=== PATIENT | female | born 1960 | race Caucasian/White ===

== ENCOUNTER 2016-05-30 08:23 | Inpatient (IN) | payer MEDICARE, OTHER ==
[~2016-05-30] VITALS: Ht 162.6 cm; Wt 91.5 kg
[~2016-05-30 08:23] MED LIST: ASPI81 PO; ATOR40TA28 PO; BACL10TA PO; BENA20TA3 PO; DULO30CA2 PO; GABA-318 PO; GABA-531 PO; GLIP10TA9 PO; INSNOV SQ; NTP TD; OXYC-341 PO; PHEN250I PO; TICA90TA PO; TOPI25 PO; TRAZ-147 PO
[2016-05-30 10:49] LABS: BASOPHILS % (AUTO) 0.7 % (0.0-2.0); HEMATOCRIT 44.7 % (36-46); HEMOGLOBIN 14.6 g/dL (12.0-16.0); LYMPHOCYTES % (AUTO) 39.5 % (22.0-44.0); MEAN CORPUSCULAR HEMOGLOBIN 28.3 pg (26.0-34.0); MEAN CORPUSCULAR HGB CONC 32.7 G/dL (31.0-37.0); MEAN CORPUSCULAR VOLUME 87 fL (80-100); MONOCYTES # (AUTO) 0.3 K/uL (0.1-1.0); MONOCYTES % (AUTO) 6.5 % (2.0-9.0); NEUTROPHILS # (AUTO) 2.6 K/uL (1.8-7.7); NEUTROPHILS % (AUTO) 52.3 % (40.0-70.0); PLATELET COUNT (AUTO) 263 K/uL (150-450); RED BLOOD CELL COUNT(AUTO) 5.15 MIL/uL (4.00-5.20); RED CELL DISTRIBUTION WIDTH 17.6 % (11.5-14.5)
[2016-05-30 11:08] LABS: RBC MORPHOLOGY COMMENT ABNORMAL RBC MORPH
[2016-05-30 11:09] LABS: ANION GAP 13 mmol/L (8-16); CALCIUM, TOTAL 9.8 mg/dL (8.8-10.5); CARBON DIOXIDE 22 mmol/L (22-29); CHLORIDE 106 mmol/L (98-107); GLOMERULAR FILTR. RATE CALC > 60 mL/min (>60); POTASSIUM 3.7 mmol/L (3.5-5.1); SODIUM SERUM 141 mmol/L (136-145); UREA NITROGEN, BLOOD 25 mg/dL (7-18)
[2016-05-30 11:15] LABS: ALBUMIN 4.2 g/dL (3.4-5.0); ASPARTATE AMINOTRANSFERASE 16 U/L (15-37); BILIRUBIN,TOTAL 0.2 mg/dL (0.1-1.0)
[2016-05-30 11:41] LABS: ALANINE AMINOTRANSFERASE 19 U/L (12-78); THYROID STIMULATING HORMONE 0.82 uIU/mL (0.36-3.74); TOTAL PROTEIN, SERUM 8.7 g/dL (6.4-8.2)
[2016-05-30 15:34] VITALS: BP 128/57
[2016-05-30] MEDS: MORPHINE SULFATE 2 MG/ML SYRINGE IVP PRN ×2 (17:45→22:30)
[2016-05-30 18:55] LABS: CREATINE KINASE, TOTAL 54 U/L (26-192)
[2016-05-30] MEDS ORDERED: NITROGLYCERIN 2% (1 GM=INCH) PACKET TP PRN (19:45)
[2016-05-30] MEDS ORDERED: OxyCODONE HCL/ACETAMINOPHEN 5-325 MG TABLET PO PRN ×6 (19:45→20:00)
[2016-05-30] MEDS ORDERED: PANTOPRAZOLE SODIUM 40 MG/VIAL IVP SCH (20:00)
[2016-05-30] MEDS ORDERED: 0.9% SODIUM CHLORIDE 10 ML SYRINGE IVP PRN ×2 (20:00)
[2016-05-30] MEDS ORDERED: ACETAMINOPHEN 325 MG TABLET PO PRN ×2 (20:00)
[2016-05-30] MEDS ORDERED: ONDANSETRON HCL 4 MG/2 ML VIAL IVP PRN ×2 (20:00)
[2016-05-30] MEDS ORDERED: MAGNESIUM HYDROXIDE SUSPENSION 30 ML UDCUP PO PRN ×2 (20:00)
[2016-05-30] MEDS ORDERED: INSULIN ASPART 100 UNITS/ML SQ PRN (20:15)
[2016-05-30] MEDS ORDERED: DEXTROSE 50%-WATER 25 GM/50 ML SYRINGE IVP PRN (20:15)
[2016-05-30] MEDS ORDERED: DOCUSATE SODIUM 100 MG CAPSULE PO SCH (21:00)
[2016-05-30] MEDS: DOCUSATE SODIUM 100 MG CAPSULE PO SCH (21:00)
[2016-05-30] MEDS ORDERED: PHENYTOIN SODIUM 200 MG in SODIUM CHLORIDE 0.9% 100 ML IV ONE (21:00)
[2016-05-30] MEDS: PHENYTOIN SODIUM 100 MG ER CAPSULE PO SCH (21:16)
[2016-05-30] MEDS: GABAPENTIN 400 MG CAPSULE PO SCH (21:17)
[2016-05-30] MEDS: BACLOFEN 10 MG TABLET PO SCH (21:18)
[2016-05-30] MEDS: ATORVASTATIN CALCIUM 40 MG TABLET PO SCH (21:18)
[2016-05-30] MEDS: DULoxetine HCL 30 MG CAPSULE PO SCH (21:19)
[2016-05-30] MEDS: TOPIRAMATE 25 MG TABLET PO SCH (21:19)
[2016-05-30] MEDS: TraZODone HCL 100 MG TABLET PO SCH (21:19)
[2016-05-30] MEDS: TICAGRELOR 90 MG TABLET PO SCH (21:21)
[2016-05-30] MEDS ORDERED: SODIUM CHLORIDE 0.9% 250 ML IV ONE (21:36)
[2016-05-30] MEDS ORDERED: PHENYTOIN SODIUM 100 MG ER CAPSULE PO ONE (23:00)
[2016-05-31] VITALS (7 sets, daily range): BP systolic 97–130; BP diastolic 58–81
[2016-05-31] MEDS: BENAZEPRIL HCL 20 MG TABLET PO SCH ×2 (00:19→08:36)
[2016-05-31] MEDS: ASPIRIN 81 MG CHEWABLE TABLET PO SCH ×2 (00:19→08:36)
[2016-05-31] MEDS: PANTOPRAZOLE SODIUM 40 MG/VIAL IVP SCH ×2 (00:20→08:36)
[2016-05-31 00:46] LABS: GLUCOSE,POINT OF CARE 98 MG/DL (70-110)
[2016-05-31] MEDS: MORPHINE SULFATE 2 MG/ML SYRINGE IVP PRN (01:30)
[2016-05-31 06:39] LABS: BASOPHILS # (AUTO) 0.03 K/uL (0.00-0.20); BASOPHILS % (AUTO) 0.8 % (0.0-2.0); EOSINOPHILS % (AUTO) 2.17 % (1.0-6.0); HEMATOCRIT 37.7 % (36-46); HEMOGLOBIN 12.6 g/dL (12.0-16.0); LYMPHOCYTES # (AUTO) 1.9 K/uL (1.0-4.8); LYMPHOCYTES % (AUTO) 42.6 % (22.0-44.0); MEAN CORPUSCULAR HEMOGLOBIN 28.8 pg (26.0-34.0); MEAN CORPUSCULAR HGB CONC 33.5 G/dL (31.0-37.0); MEAN CORPUSCULAR VOLUME 86 fL (80-100); MONOCYTES # (AUTO) 0.4 K/uL (0.1-1.0); MONOCYTES % (AUTO) 8.4 % (2.0-9.0); NEUTROPHILS # (AUTO) 2.1 K/uL (1.8-7.7); NEUTROPHILS % (AUTO) 46.1 % (40.0-70.0); PLATELET COUNT (AUTO) 231 K/uL (150-450); RED BLOOD CELL COUNT(AUTO) 4.39 MIL/uL (4.00-5.20); RED CELL DISTRIBUTION WIDTH 17.4 % (11.5-14.5); WHITE BLOOD COUNT (AUTO) 4.5 K/uL (4.5-11.0)
[2016-05-31 07:08] LABS: ANION GAP 9 mmol/L (8-16); CALCIUM, TOTAL 8.9 mg/dL (8.8-10.5); CARBON DIOXIDE 25 mmol/L (22-29); CHLORIDE 104 mmol/L (98-107); CHOL/HDL RATIO 4.5 (3.9-5.7); CREATININE 0.76 mg/dL (0.60-1.30); GLOMERULAR FILTR. RATE CALC > 60 mL/min (>60); POTASSIUM 3.6 mmol/L (3.5-5.1); SODIUM SERUM 138 mmol/L (136-145); UREA NITROGEN, BLOOD 29 mg/dL (7-18)
[2016-05-31 07:28] LABS: HEMOGLOBIN A1C 6.2 % (4.5-6.2)
[2016-05-31 07:53] LABS: RBC MORPHOLOGY COMMENT ABNORMAL RBC MORPH
[2016-05-31 08:11] LABS: GLUCOSE COMMENT 1 Received Meds; GLUCOSE,POINT OF CARE 100 MG/DL (70-110)
[2016-05-31] MEDS: DOCUSATE SODIUM 100 MG CAPSULE PO SCH ×2 (08:36→21:17)
[2016-05-31] MEDS: PHENYTOIN SODIUM 100 MG ER CAPSULE PO SCH (08:36)
[2016-05-31] MEDS: BACLOFEN 10 MG TABLET PO SCH ×3 (08:37→21:17)
[2016-05-31] MEDS: DULoxetine HCL 30 MG CAPSULE PO SCH ×2 (11:41→21:16)
[2016-05-31] MEDS: GABAPENTIN 400 MG CAPSULE PO SCH ×4 (11:41→21:16)
[2016-05-31] MEDS: TOPIRAMATE 25 MG TABLET PO SCH ×2 (11:42→21:17)
[2016-05-31] MEDS: TICAGRELOR 90 MG TABLET PO SCH ×2 (11:42→21:16)
[2016-05-31 18:11] LABS: GLUCOSE,POINT OF CARE 111 MG/DL (70-110)
[2016-05-31] MEDS: TraZODone HCL 100 MG TABLET PO SCH (21:16)
[2016-05-31] MEDS: ATORVASTATIN CALCIUM 40 MG TABLET PO SCH (21:16)
[2016-06-01 00:27] LABS: GLUCOSE,POINT OF CARE 127 MG/DL (70-110)
[2016-06-01 05:22] VITALS: BP 126/78
[2016-06-01 07:38] LABS: BASOPHILS % (AUTO) 0.8 % (0.0-2.0); EOSINOPHILS % (AUTO) 2.9 % (1.0-6.0); HEMATOCRIT 39.8 % (36-46); HEMOGLOBIN 13.2 g/dL (12.0-16.0); LYMPHOCYTES # (AUTO) 2.3 K/uL (1.0-4.8); LYMPHOCYTES % (AUTO) 47.5 % (22.0-44.0); MEAN CORPUSCULAR HGB CONC 33.3 G/dL (31.0-37.0); MEAN CORPUSCULAR VOLUME 87 fL (80-100); MONOCYTES # (AUTO) 0.4 K/uL (0.1-1.0); MONOCYTES % (AUTO) 8.4 % (2.0-9.0); NEUTROPHILS # (AUTO) 1.9 K/uL (1.8-7.7); NEUTROPHILS % (AUTO) 40.4 % (40.0-70.0); PLATELET COUNT (AUTO) 242 K/uL (150-450); RED BLOOD CELL COUNT(AUTO) 4.57 MIL/uL (4.00-5.20); RED CELL DISTRIBUTION WIDTH 16.9 % (11.5-14.5); WHITE BLOOD COUNT (AUTO) 4.8 K/uL (4.5-11.0)
[2016-06-01 07:54] LABS: ANION GAP 8 mmol/L (8-16); CALCIUM, TOTAL 9.4 mg/dL (8.8-10.5); CARBON DIOXIDE 27 mmol/L (22-29); CHLORIDE 103 mmol/L (98-107); CREATININE 0.69 mg/dL (0.60-1.30); GLOMERULAR FILTR. RATE CALC > 60 mL/min (>60); POTASSIUM 3.7 mmol/L (3.5-5.1); SODIUM SERUM 138 mmol/L (136-145); UREA NITROGEN, BLOOD 24 mg/dL (7-18)
[2016-06-01] MEDS: PANTOPRAZOLE SODIUM 40 MG/VIAL IVP SCH (08:36)
[2016-06-01] MEDS: DOCUSATE SODIUM 100 MG CAPSULE PO SCH ×2 (08:36→19:59)
[2016-06-01] MEDS: PHENYTOIN SODIUM 100 MG ER CAPSULE PO SCH (08:36)
[2016-06-01] MEDS: ASPIRIN 81 MG CHEWABLE TABLET PO SCH (08:36)
[2016-06-01] MEDS: TICAGRELOR 90 MG TABLET PO SCH ×2 (08:37→19:59)
[2016-06-01] MEDS: GABAPENTIN 400 MG CAPSULE PO SCH ×4 (08:39→19:59)
[2016-06-01] MEDS: BACLOFEN 10 MG TABLET PO SCH ×3 (08:39→19:59)
[2016-06-01] MEDS: BENAZEPRIL HCL 20 MG TABLET PO SCH (08:39)
[2016-06-01] MEDS: DULoxetine HCL 30 MG CAPSULE PO SCH ×2 (08:40→19:59)
[2016-06-01] MEDS: TOPIRAMATE 25 MG TABLET PO SCH ×2 (08:41→19:59)
[2016-06-01 08:53] VITALS: BP 128/73
[2016-06-01 11:31] VITALS: BP 133/79
[2016-06-01 12:21] LABS: GLUCOSE,POINT OF CARE 127 MG/DL (70-110)
[2016-06-01 15:19] VITALS: BP 120/90
[2016-06-01 17:51] LABS: GLUCOSE COMMENT 1 Received Meds; GLUCOSE,POINT OF CARE 113 MG/DL (70-110)
[2016-06-01 19:56] VITALS: BP 132/70
[2016-06-01] MEDS: TraZODone HCL 100 MG TABLET PO SCH (19:59)
[2016-06-01] MEDS: ATORVASTATIN CALCIUM 40 MG TABLET PO SCH (19:59)
[2016-06-01] MEDS ORDERED: PHENYTOIN SODIUM 100 MG ER CAPSULE PO ONE (21:00)
[2016-06-01 23:53] VITALS: BP 128/64
[2016-06-02 04:29] VITALS: BP 130/62
[2016-06-02 06:21] LABS: GLUCOSE,POINT OF CARE 117 MG/DL (70-110)
[2016-06-02 06:21] LABS: GLUCOSE,POINT OF CARE 110 MG/DL (70-110)
[2016-06-02 08:02] VITALS: BP 122/79
[2016-06-02] MEDS: TICAGRELOR 90 MG TABLET PO SCH (08:48)
[2016-06-02] MEDS: ASPIRIN 81 MG CHEWABLE TABLET PO SCH (08:48)
[2016-06-02] MEDS: PANTOPRAZOLE SODIUM 40 MG/VIAL IVP SCH (08:48)
[2016-06-02] MEDS: DULoxetine HCL 30 MG CAPSULE PO SCH (08:48)
[2016-06-02] MEDS: TOPIRAMATE 25 MG TABLET PO SCH (08:48)
[2016-06-02] MEDS: DOCUSATE SODIUM 100 MG CAPSULE PO SCH (08:48)
[2016-06-02] MEDS: PHENYTOIN SODIUM 100 MG ER CAPSULE PO SCH (08:49)
[2016-06-02] MEDS: BENAZEPRIL HCL 20 MG TABLET PO SCH (08:49)
[2016-06-02] MEDS: GABAPENTIN 400 MG CAPSULE PO SCH ×3 (08:49→16:46)
[2016-06-02] MEDS: BACLOFEN 10 MG TABLET PO SCH ×2 (08:49→16:47)
[2016-06-02 11:49] VITALS: BP 124/86
[2016-06-02 13:21] LABS: GLUCOSE,POINT OF CARE 110 MG/DL (70-110)
[2016-06-02 16:23] VITALS: BP 136/87
[2016-06-02 19:16] LABS: GLUCOSE,POINT OF CARE 112 MG/DL (70-110)
[2016-06-03] MEDS ORDERED: PHENYTOIN SODIUM 100 MG ER CAPSULE PO SCH ×2 (09:00→21:00)
[2016-06-06 14:56] LABS: GLUCOSE,POINT OF CARE 83 MG/DL (70-110)
[2016-06-06 15:01] LABS: GLUCOSE,POINT OF CARE 100 MG/DL (70-110)
[2016-06-06 15:02] LABS: GLUCOSE,POINT OF CARE 60 MG/DL (70-110)
== END 2016-06-02 17:45 | DRG 206 ==
LOC: EMS 08:25 → 6N 14:07 → 5S 22:35
PROVIDERS: ADMIT Internal Medicine; ATTEND Internal Medicine
DX: M94.0 Chondrocostal junction syndrome [Tietze] (principal); N39.0 Urinary tract infection, site not specified; I69.354 Hemiplegia and hemiparesis following cerebral infarction affecting left non-dominant side; E86.0 Dehydration; E11.319 Type 2 diabetes mellitus with unspecified diabetic retinopathy without macular edema; E78.5 Hyperlipidemia, unspecified; F17.200 Nicotine dependence, unspecified, uncomplicated; F32.9 Major depressive disorder, single episode, unspecified; G40.909 Epilepsy, unspecified, not intractable, without status epilepticus; I10 Essential (primary) hypertension; I25.10 Atherosclerotic heart disease of native coronary artery without angina pectoris; G47.00 Insomnia, unspecified; F10.21 Alcohol dependence, in remission; H54.8 Legal blindness, as defined in USA; E66.01 Morbid (severe) obesity due to excess calories; R29.6 Repeated falls; I25.2 Old myocardial infarction; Z79.82 Long term (current) use of aspirin; Z91.14 Patient's other noncompliance with medication regimen; Z95.5 Presence of coronary angioplasty implant and graft; Z99.3 Dependence on wheelchair; Z88.8 Allergy status to other drugs, medicaments and biological substances; Z88.1 Allergy status to other antibiotic agents; Z79.899 Other long term (current) drug therapy; Z79.4 Long term (current) use of insulin; Z98.890 Other specified postprocedural states; Z87.81 Personal history of (healed) traumatic fracture; Z68.34 Body mass index [BMI] 34.0-34.9, adult
CPT/HCPCS: 82962; 83036; 84443; 93005; 93306; 97116; 97161; 97530; 99285; C9113; J1165; J2270; J7050

== ENCOUNTER 2016-07-12 11:44 | Emergency (ER) | payer MEDICARE, OTHER ==
[~2016-07-12] VITALS: Ht 167.6 cm; Wt 89.0 kg
[~2016-07-12 11:44] MED LIST changes: -GABA-318 PO
[2016-07-12 12:27] LABS: GLUCOSE COMMENT 1 Repeated; GLUCOSE,POINT OF CARE 178 MG/DL (70-110)
[2016-07-12 18:23] VITALS: BP 152/92
[2016-07-12 18:32] LABS: GLUCOSE,POINT OF CARE 137 MG/DL (70-110)
[2016-07-12 19:42] LABS: APPEARANCE,URINE CLEAR (CLEAR); GLUCOSE, URINE (UA) NEGATIVE (NEGATIVE); KETONES,URINE NEGATIVE (NEGATIVE); LEUKOCYTE ESTERASE ,URINE TRACE (NEGATIVE); OCCULT BLOOD,URINE LARGE (NEGATIVE); PROTEIN,URINE SEE CONFIRM (NEGATIVE)
[2016-07-12 19:43] LABS: ADD UA MICROSCOPIC YES
[2016-07-12 19:46] LABS: SULFOSALICYLIC ACID,URINE 2+ (Negative)
[2016-07-12 19:47] LABS: RBC,URINE 51-100 /HPF (0-2); SQUAMOUS EPITHELIAL CELL,UR Few /LPF (None Seen)
== END 2016-07-12 19:05 | disposition home or self-care (01) ==
LOC: EMS 11:46
DX: N39.0 Urinary tract infection, site not specified (principal); I11.9 Hypertensive heart disease without heart failure; I25.2 Old myocardial infarction; E11.9 Type 2 diabetes mellitus without complications; Z88.1 Allergy status to other antibiotic agents; Z88.8 Allergy status to other drugs, medicaments and biological substances; Z79.82 Long term (current) use of aspirin; Z79.4 Long term (current) use of insulin
CPT/HCPCS: 82962; 99283

== ENCOUNTER 2016-07-15 00:59 | Inpatient (IN) | payer MEDICARE, OTHER ==
[~2016-07-15] VITALS: Ht 170.2 cm; Wt 89.6 kg
[2016-07-15 01:51] LABS: GLUCOSE,POINT OF CARE 122 MG/DL (70-110)
[2016-07-15] MEDS ORDERED: PHENYTOIN SODIUM 100 MG ER CAPSULE PO ONE (03:15)
[2016-07-15] MEDS ORDERED: TraZODone HCL 50 MG TABLET PO ONE (03:15)
[2016-07-15] MEDS ORDERED: TICAGRELOR 90 MG TABLET PO ONE (03:15)
[2016-07-15] MEDS ORDERED: TOPIRAMATE 25 MG TABLET PO ONE (03:15)
[2016-07-15] MEDS ORDERED: DULoxetine HCL 30 MG CAPSULE PO ONE (03:15)
[2016-07-15 03:49] LABS: BASOPHILS % (AUTO) 0.4 % (0.0-2.0); EOSINOPHILS % (AUTO) 1.3 % (1.0-6.0); HEMATOCRIT 48.5 % (36-46); HEMOGLOBIN 15.5 g/dL (12.0-16.0); LYMPHOCYTES # (AUTO) 3.1 K/uL (1.0-4.8); LYMPHOCYTES % (AUTO) 38.7 % (22.0-44.0); MEAN CORPUSCULAR HEMOGLOBIN 27.7 pg (26.0-34.0); MEAN CORPUSCULAR HGB CONC 31.9 G/dL (31.0-37.0); MEAN CORPUSCULAR VOLUME 87 fL (80-100); MONOCYTES # (AUTO) 0.7 K/uL (0.1-1.0); MONOCYTES % (AUTO) 9.1 % (2.0-9.0); NEUTROPHILS % (AUTO) 50.5 % (40.0-70.0); PLATELET COUNT (AUTO) 226 K/uL (150-450); RED BLOOD CELL COUNT(AUTO) 5.58 MIL/uL (4.00-5.20); RED CELL DISTRIBUTION WIDTH 16.5 % (11.5-14.5); WHITE BLOOD COUNT (AUTO) 7.9 K/uL (4.5-11.0)
[2016-07-15 04:03] LABS: INR 1.1 (0.9-1.1); PROTHROMBIN TIME 11.1 SEC (9.4-11.6)
[2016-07-15 04:04] LABS: ANION GAP 11 mmol/L (8-16); CALCIUM, TOTAL 9.7 mg/dL (8.8-10.5); CARBON DIOXIDE 28 mmol/L (22-29); CHLORIDE 105 mmol/L (98-107); CREATININE 0.64 mg/dL (0.60-1.30); GLOMERULAR FILTR. RATE CALC > 60 mL/min (>60); SODIUM SERUM 144 mmol/L (136-145); UREA NITROGEN, BLOOD 15 mg/dL (7-18)
[2016-07-15 04:10] LABS: ALANINE AMINOTRANSFERASE 30 U/L (12-78); ASPARTATE AMINOTRANSFERASE 24 U/L (15-37); BILIRUBIN,TOTAL 0.1 mg/dL (0.1-1.0); CREATINE KINASE, TOTAL 72 U/L (26-192); TOTAL PROTEIN, SERUM 8.4 g/dL (6.4-8.2)
[2016-07-15 04:13] LABS: LACTIC ACID 1.6 mmol/L (0.4-2.0)
[2016-07-15 04:33] LABS: B-TYPE NATRIURETIC PEPTIDE 29 pg/mL (0-100)
[2016-07-15] MEDS ORDERED: ONDANSETRON HCL 4 MG/2 ML VIAL IVP PRN (05:00)
[2016-07-15] MEDS ORDERED: ACETAMINOPHEN 325 MG TABLET PO PRN ×2 (05:00→06:15)
[2016-07-15] MEDS ORDERED: 0.9% SODIUM CHLORIDE 10 ML SYRINGE IVP PRN (05:00)
[2016-07-15] MEDS ORDERED: POTASSIUM CHLORIDE 10% 40 MEQ/30 ML LIQUID UDCUP PO ONE (05:45)
[2016-07-15] MEDS ORDERED: MORPHINE SULFATE 2 MG/ML SYRINGE IVP PRN ×2 (06:15→20:15)
[2016-07-15] MEDS ORDERED: NITROGLYCERIN 2% (1 GM=INCH) PACKET TP PRN ×3 (06:15→20:15)
[2016-07-15] MEDS: ASPIRIN 81 MG CHEWABLE TABLET PO SCH (08:07)
[2016-07-15] MEDS: CLOPIDOGREL BISULFATE 75 MG TABLET PO SCH (08:15)
[2016-07-15 09:11] LABS: GLUCOSE,POINT OF CARE 110 MG/DL (70-110)
[2016-07-15 11:55] LABS: ADD UA MICROSCOPIC YES; APPEARANCE,URINE CLEAR (CLEAR); GLUCOSE, URINE (UA) NEGATIVE (NEGATIVE); KETONES,URINE NEGATIVE (NEGATIVE); LEUKOCYTE ESTERASE ,URINE NEGATIVE (NEGATIVE); OCCULT BLOOD,URINE LARGE (NEGATIVE); PH,URINE 6.5 (5.0-8.0); PROTEIN,URINE TRACE (NEGATIVE)
[2016-07-15 12:20] LABS: RBC,URINE 26-50 /HPF (0-2); SQUAMOUS EPITHELIAL CELL,UR Few /LPF (None Seen); WBC,URINE 0-2 /HPF (0-5)
[2016-07-15] MEDS ORDERED: OxyCODONE HCL/ACETAMINOPHEN 5-325 MG TABLET PO PRN (18:15)
[2016-07-15] MEDS ORDERED: DEXTROSE 50%-WATER 25 GM/50 ML SYRINGE IVP PRN (18:15)
[2016-07-15] MEDS ORDERED: INSULIN ASPART 100 UNITS/ML SQ PRN (18:15)
[2016-07-15] MEDS ORDERED: BACLOFEN 10 MG TABLET PO SCH (18:15)
[2016-07-15] MEDS ORDERED: ASPIRIN 81 MG CHEWABLE TABLET PO SCH (20:15)
[2016-07-15] MEDS ORDERED: ZOLPIDEM TARTRATE 10 MG TABLET PO PRN (20:15)
[2016-07-15] MEDS ORDERED: NITROGLYCERIN 0.4 MG SUBLINGUAL TABLET #25 SL PRN (20:15)
[2016-07-15] MEDS ORDERED: SODIUM CHLORIDE 0.9% 250 ML IV ONE (21:58)
[2016-07-15] MEDS: CefTRIAXone 1 GM/DEXTROSE 50 ML IV SCH ×2 (22:09→22:34)
[2016-07-15] MEDS: PANTOPRAZOLE SODIUM 40 MG/VIAL IVP SCH ×2 (22:10→22:33)
[2016-07-15] MEDS: PHENYTOIN SODIUM 100 MG ER CAPSULE PO SCH (22:11)
[2016-07-15] MEDS: DULoxetine HCL 30 MG CAPSULE PO SCH (22:12)
[2016-07-15] MEDS: GABAPENTIN 400 MG CAPSULE PO SCH (22:13)
[2016-07-15] MEDS: BACLOFEN 10 MG TABLET PO SCH (22:13)
[2016-07-15] MEDS: TICAGRELOR 90 MG TABLET PO SCH (22:14)
[2016-07-15] MEDS: TraZODone HCL 100 MG TABLET PO SCH (22:14)
[2016-07-15] MEDS: ATORVASTATIN CALCIUM 40 MG TABLET PO SCH (22:14)
[2016-07-15] MEDS: TOPIRAMATE 25 MG TABLET PO SCH (22:14)
[2016-07-15] MEDS: PHENAZOPYRIDINE HCL 100 MG TABLET PO SCH (23:08)
[2016-07-15 23:23] VITALS: BP 149/85
[2016-07-16 05:45] VITALS: BP 173/87
[2016-07-16 08:04] LABS: BASOPHILS % (AUTO) 0.6 % (0.0-2.0); LYMPHOCYTES # (AUTO) 2.2 K/uL (1.0-4.8); LYMPHOCYTES % (AUTO) 37.5 % (22.0-44.0); MEAN CORPUSCULAR HEMOGLOBIN 27.7 pg (26.0-34.0); MEAN CORPUSCULAR HGB CONC 31.8 G/dL (31.0-37.0); MEAN CORPUSCULAR VOLUME 87 fL (80-100); MONOCYTES # (AUTO) 0.5 K/uL (0.1-1.0); MONOCYTES % (AUTO) 8.1 % (2.0-9.0); NEUTROPHILS % (AUTO) 51.8 % (40.0-70.0); PLATELET COUNT (AUTO) 202 K/uL (150-450); RED BLOOD CELL COUNT(AUTO) 5.06 MIL/uL (4.00-5.20); RED CELL DISTRIBUTION WIDTH 16.1 % (11.5-14.5); WHITE BLOOD COUNT (AUTO) 5.8 K/uL (4.5-11.0)
[2016-07-16] MEDS: DULoxetine HCL 30 MG CAPSULE PO SCH ×2 (08:56→22:02)
[2016-07-16] MEDS: TICAGRELOR 90 MG TABLET PO SCH ×2 (08:56→22:02)
[2016-07-16] MEDS: ASPIRIN 81 MG CHEWABLE TABLET PO SCH (08:56)
[2016-07-16] MEDS: GlipiZIDE 10 MG TABLET PO SCH (08:57)
[2016-07-16] MEDS: BACLOFEN 10 MG TABLET PO SCH ×2 (08:57→22:02)
[2016-07-16] MEDS: BENAZEPRIL HCL 20 MG TABLET PO SCH (08:57)
[2016-07-16] MEDS: PHENAZOPYRIDINE HCL 100 MG TABLET PO SCH ×3 (08:58→22:03)
[2016-07-16] MEDS: CLOPIDOGREL BISULFATE 75 MG TABLET PO SCH (08:58)
[2016-07-16] MEDS: TOPIRAMATE 25 MG TABLET PO SCH ×2 (08:58→22:03)
[2016-07-16] MEDS: GABAPENTIN 400 MG CAPSULE PO SCH ×4 (08:58→22:02)
[2016-07-16] MEDS ORDERED: ASPIRIN 81 MG CHEWABLE TABLET PO SCH (09:00)
[2016-07-16 09:06] LABS: ANION GAP 9 mmol/L (8-16); CALCIUM, TOTAL 8.8 mg/dL (8.8-10.5); CARBON DIOXIDE 26 mmol/L (22-29); CHLORIDE 110 mmol/L (98-107); CHOL/HDL RATIO 3.8 (3.9-5.7); GLOMERULAR FILTR. RATE CALC > 60 mL/min (>60); POTASSIUM 4.5 mmol/L (3.5-5.1); SODIUM SERUM 145 mmol/L (136-145); UREA NITROGEN, BLOOD 17 mg/dL (7-18)
[2016-07-16 15:08] VITALS: BP 101/60
[2016-07-16] MEDS: OxyCODONE HCL/ACETAMINOPHEN 5-325 MG TABLET PO PRN (15:36)
[2016-07-16 20:15] VITALS: BP 115/71
[2016-07-16] MEDS: ATORVASTATIN CALCIUM 40 MG TABLET PO SCH (22:02)
[2016-07-16] MEDS: TraZODone HCL 100 MG TABLET PO SCH (22:03)
[2016-07-16] MEDS: PHENYTOIN SODIUM 100 MG ER CAPSULE PO SCH (22:03)
[2016-07-17 00:03] VITALS: BP 122/72
[2016-07-17 03:41] VITALS: BP 122/70
[2016-07-17 08:31] VITALS: BP 122/72
[2016-07-17] MEDS: PANTOPRAZOLE SODIUM 40 MG/VIAL IVP SCH (09:00)
[2016-07-17] MEDS: BENAZEPRIL HCL 20 MG TABLET PO SCH (09:07)
[2016-07-17] MEDS: OxyCODONE HCL/ACETAMINOPHEN 5-325 MG TABLET PO PRN ×2 (09:08→14:10)
[2016-07-17] MEDS: ASPIRIN 81 MG CHEWABLE TABLET PO SCH (09:09)
[2016-07-17 11:00] VITALS: BP 101/57
[2016-07-17] MEDS: BACLOFEN 10 MG TABLET PO SCH ×2 (14:08→22:04)
[2016-07-17] MEDS: GlipiZIDE 10 MG TABLET PO SCH (14:08)
[2016-07-17] MEDS: PHENAZOPYRIDINE HCL 100 MG TABLET PO SCH (14:08)
[2016-07-17] MEDS: TICAGRELOR 90 MG TABLET PO SCH ×2 (14:08→22:04)
[2016-07-17] MEDS: TOPIRAMATE 25 MG TABLET PO SCH ×2 (14:09→22:04)
[2016-07-17] MEDS: GABAPENTIN 400 MG CAPSULE PO SCH ×4 (14:09→22:04)
[2016-07-17] MEDS: DULoxetine HCL 30 MG CAPSULE PO SCH ×2 (14:09→22:04)
[2016-07-17] MEDS: ATORVASTATIN CALCIUM 40 MG TABLET PO SCH (22:04)
[2016-07-17] MEDS: PHENYTOIN SODIUM 100 MG ER CAPSULE PO SCH (22:29)
[2016-07-17] MEDS: CefTRIAXone 1 GM/DEXTROSE 50 ML IV SCH (22:29)
[2016-07-17] MEDS: TraZODone HCL 100 MG TABLET PO SCH (23:24)
[2016-07-17 23:58] VITALS: BP 155/83
[2016-07-18 05:17] VITALS: BP 152/88
[2016-07-18 07:35] VITALS: BP 115/85
[2016-07-18] MEDS: ASPIRIN 81 MG CHEWABLE TABLET PO SCH (08:32)
[2016-07-18] MEDS: GABAPENTIN 400 MG CAPSULE PO SCH ×2 (08:32→12:41)
[2016-07-18] MEDS: DULoxetine HCL 30 MG CAPSULE PO SCH (08:33)
[2016-07-18] MEDS: TOPIRAMATE 25 MG TABLET PO SCH (08:33)
[2016-07-18] MEDS: GlipiZIDE 10 MG TABLET PO SCH (08:33)
[2016-07-18] MEDS: TICAGRELOR 90 MG TABLET PO SCH (08:33)
[2016-07-18] MEDS: BACLOFEN 10 MG TABLET PO SCH (08:33)
[2016-07-18] MEDS: PANTOPRAZOLE SODIUM 40 MG/VIAL IVP SCH (08:35)
[2016-07-18 09:39] VITALS: BP 142/78
[2016-07-18] MEDS: BENAZEPRIL HCL 20 MG TABLET PO SCH (09:42)
[2016-07-18 14:33] LABS: GLUCOSE,POINT OF CARE 127 MG/DL (70-110)
[2016-07-18 15:27] LABS: GLUCOSE,POINT OF CARE 124 MG/DL (70-110)
[2016-07-18 15:32] LABS: GLUCOSE,POINT OF CARE 118 MG/DL (70-110)
[2016-07-18 15:32] LABS: GLUCOSE,POINT OF CARE 120 MG/DL (70-110)
== END 2016-07-18 13:20 | disposition home or self-care (01) | DRG 303 ==
LOC: EMS 01:01 → 5N 18:00
PROVIDERS: ADMIT Internal Medicine; ATTEND Internal Medicine
DX: I25.10 Atherosclerotic heart disease of native coronary artery without angina pectoris (principal); I69.354 Hemiplegia and hemiparesis following cerebral infarction affecting left non-dominant side; E11.319 Type 2 diabetes mellitus with unspecified diabetic retinopathy without macular edema; I10 Essential (primary) hypertension; E87.6 Hypokalemia; M62.422 Contracture of muscle, left upper arm; G47.00 Insomnia, unspecified; H54.41 Blindness, right eye, normal vision left eye; F17.210 Nicotine dependence, cigarettes, uncomplicated; I25.2 Old myocardial infarction; S81.802A Unspecified open wound, left lower leg, initial encounter; F32.9 Major depressive disorder, single episode, unspecified; R29.6 Repeated falls; G40.909 Epilepsy, unspecified, not intractable, without status epilepticus; J44.9 Chronic obstructive pulmonary disease, unspecified; E78.5 Hyperlipidemia, unspecified; E66.01 Morbid (severe) obesity due to excess calories; Z95.5 Presence of coronary angioplasty implant and graft; Z99.3 Dependence on wheelchair; Z88.8 Allergy status to other drugs, medicaments and biological substances; Z88.1 Allergy status to other antibiotic agents; Z79.899 Other long term (current) drug therapy; Z79.82 Long term (current) use of aspirin; Z79.891 Long term (current) use of opiate analgesic; Z79.4 Long term (current) use of insulin; Z98.890 Other specified postprocedural states; Z87.440 Personal history of urinary (tract) infections; X58.XXXA Exposure to other specified factors, initial encounter; Y93.89 Activity, other specified; Y92.89 Other specified places as the place of occurrence of the external cause; Y99.8 Other external cause status; Z68.30 Body mass index [BMI] 30.0-30.9, adult
CPT/HCPCS: 82962; 83605; 93005; 96374; 99285; C9113; G0480; J0696; J2270; J7050

== ENCOUNTER 2016-07-19 19:00 | Emergency (ER) | payer MEDICARE, OTHER ==
[~2016-07-19] VITALS: Ht 167.6 cm; Wt 89.1 kg
[~2016-07-19 19:00] MED LIST changes: -INSNOV SQ; -NTP TD; -OXYC-341 PO
[2016-07-19 20:32] LABS: GLUCOSE,POINT OF CARE 128 MG/DL (70-110)
[2016-07-19 23:45] VITALS: BP 171/97
== END 2016-07-20 00:51 | disposition home or self-care (01) ==
LOC: EMS 19:03
DX: S09.90XA Unspecified injury of head, initial encounter (principal); I11.9 Hypertensive heart disease without heart failure; I25.2 Old myocardial infarction; E11.9 Type 2 diabetes mellitus without complications; Z79.82 Long term (current) use of aspirin; F17.210 Nicotine dependence, cigarettes, uncomplicated; Z88.8 Allergy status to other drugs, medicaments and biological substances; Z88.1 Allergy status to other antibiotic agents; W19.XXXA Unspecified fall, initial encounter; Y93.89 Activity, other specified; Y92.89 Other specified places as the place of occurrence of the external cause; Y99.8 Other external cause status
CPT/HCPCS: 70450; 82962; 99284

== ENCOUNTER 2016-07-24 09:00 | Emergency (ER) | payer MEDICARE, OTHER ==
[~2016-07-24] VITALS: Ht 167.6 cm; Wt 87.2 kg
[2016-07-24 09:32] LABS: GLUCOSE,POINT OF CARE 116 MG/DL (70-110)
[2016-07-24 09:41] LABS: BASOPHILS % (AUTO) 0.6 % (0.0-2.0); EOSINOPHILS % (AUTO) 1.8 % (1.0-6.0); HEMATOCRIT 44.1 % (36-46); HEMOGLOBIN 14.2 g/dL (12.0-16.0); LYMPHOCYTES # (AUTO) 1.8 K/uL (1.0-4.8); LYMPHOCYTES % (AUTO) 37.5 % (22.0-44.0); MEAN CORPUSCULAR HGB CONC 32.2 G/dL (31.0-37.0); MEAN CORPUSCULAR VOLUME 87 fL (80-100); MONOCYTES # (AUTO) 0.5 K/uL (0.1-1.0); MONOCYTES % (AUTO) 9.9 % (2.0-9.0); NEUTROPHILS # (AUTO) 2.4 K/uL (1.8-7.7); NEUTROPHILS % (AUTO) 50.2 % (40.0-70.0); PLATELET COUNT (AUTO) 205 K/uL (150-450); RED BLOOD CELL COUNT(AUTO) 5.08 MIL/uL (4.00-5.20); RED CELL DISTRIBUTION WIDTH 17.1 % (11.5-14.5); WHITE BLOOD COUNT (AUTO) 4.8 K/uL (4.5-11.0)
[2016-07-24 09:54] LABS: ANION GAP 9 mmol/L (8-16); CALCIUM, TOTAL 8.1 mg/dL (8.8-10.5); CARBON DIOXIDE 31 mmol/L (22-29); CHLORIDE 105 mmol/L (98-107); CREATININE 0.56 mg/dL (0.60-1.30); GLOMERULAR FILTR. RATE CALC > 60 mL/min (>60); POTASSIUM 3.3 mmol/L (3.5-5.1); SODIUM SERUM 145 mmol/L (136-145); UREA NITROGEN, BLOOD 11 mg/dL (7-18)
[2016-07-24 10:00] LABS: ALANINE AMINOTRANSFERASE 18 U/L (12-78); ALBUMIN 3.3 g/dL (3.4-5.0); ASPARTATE AMINOTRANSFERASE 13 U/L (15-37); BILIRUBIN,TOTAL 0.2 mg/dL (0.1-1.0); TOTAL PROTEIN, SERUM 7.5 g/dL (6.4-8.2)
[2016-07-24 10:05] LABS: RBC MORPHOLOGY COMMENT ABNORMAL RBC MORPH
[2016-07-24] MEDS ORDERED: CloNIDine HCL 0.2 MG TABLET PO ONE (11:30)
[2016-07-24] MEDS ORDERED: PHENY100 PO (11:35)
[2016-07-24] MEDS ORDERED: GABA-533 PO (11:35)
[2016-07-24] MEDS ORDERED: POTASSIUM CHLORIDE 20 MEQ ER TABLET PO ONE (12:45)
[2016-07-24] MEDS ORDERED: ACETAMINOPHEN 325 MG TABLET PO PRN ×2 (14:30→16:00)
[2016-07-24] MEDS ORDERED: ONDANSETRON HCL 4 MG/2 ML VIAL IVP PRN ×2 (14:30→16:00)
[2016-07-24] MEDS ORDERED: 0.9% SODIUM CHLORIDE 10 ML SYRINGE IVP PRN (14:30)
[2016-07-24] MEDS ORDERED: BACLOFEN 10 MG TABLET PO PRN (16:00)
[2016-07-24] MEDS ORDERED: GABAPENTIN 400 MG CAPSULE PO SCH (16:00)
[2016-07-24] MEDS ORDERED: MAGNESIUM HYDROXIDE SUSPENSION 30 ML UDCUP PO PRN (16:00)
[2016-07-24] MEDS ORDERED: HYDROCODONE/ACETAMINOPHEN 5-325 MG TABLET PO PRN (16:00)
[2016-07-24] MEDS ORDERED: HEPARIN SODIUM,PORCINE 5,000 UNITS/ML VIAL SQ SCH (16:00)
[2016-07-24] MEDS ORDERED: BISACODYL 10 MG RECTAL RECTAL SUPPOSITORY PR PRN (16:00)
[2016-07-24] MEDS ORDERED: ZOLPIDEM TARTRATE 5 MG TABLET PO PRN (16:00)
[2016-07-24] MEDS ORDERED: MORPHINE SULFATE 2 MG/ML SYRINGE IVP PRN (16:00)
[2016-07-24 16:32] LABS: GLUCOSE,POINT OF CARE 99 MG/DL (70-110)
[2016-07-24 17:06] VITALS: BP 132/92
[2016-07-24] MEDS ORDERED: TOPIRAMATE 25 MG TABLET PO SCH (21:00)
[2016-07-24] MEDS ORDERED: PHENYTOIN SODIUM 100 MG ER CAPSULE PO SCH (21:00)
[2016-07-24] MEDS ORDERED: TraZODone HCL 100 MG TABLET PO SCH (21:00)
[2016-07-24] MEDS ORDERED: DULoxetine HCL 30 MG CAPSULE PO SCH (21:00)
[2016-07-24] MEDS ORDERED: TICAGRELOR 90 MG TABLET PO SCH (21:00)
[2016-07-24] MEDS ORDERED: DOCUSATE SODIUM 100 MG CAPSULE PO SCH (21:00)
[2016-07-25] MEDS ORDERED: GlipiZIDE 10 MG TABLET PO SCH (06:30)
[2016-07-25] MEDS ORDERED: PANTOPRAZOLE SODIUM 40 MG DR TABLET PO SCH (09:00)
[2016-07-25] MEDS ORDERED: BENAZEPRIL HCL 20 MG TABLET PO SCH (09:00)
[2016-07-25] MEDS ORDERED: ASPIRIN 81 MG CHEWABLE TABLET PO SCH (09:00)
== END 2016-07-24 18:15 | disposition home or self-care (01) ==
LOC: EEVIPCON 09:02 → EMS 09:02
DX: R53.1 Weakness (principal); F17.210 Nicotine dependence, cigarettes, uncomplicated; I10 Essential (primary) hypertension; I25.2 Old myocardial infarction; E11.9 Type 2 diabetes mellitus without complications; Z79.82 Long term (current) use of aspirin; Z88.1 Allergy status to other antibiotic agents; Z88.0 Allergy status to penicillin; Z59.0 Homelessness
CPT/HCPCS: 36415; 80053; 80307; 82962; 85025; 99285; G0480

== ENCOUNTER 2016-08-02 21:18 | Emergency (ER) | payer MEDICARE, OTHER ==
[~2016-08-02] VITALS: Ht 167.6 cm; Wt 90.0 kg
[~2016-08-02 21:18] MED LIST changes: -ATOR40TA28 PO; -GABA-531 PO; +GABA-533 PO; -PHEN250I PO; +PHENY100 PO
[2016-08-02 21:52] LABS: GLUCOSE,POINT OF CARE 171 MG/DL (70-110)
[2016-08-02] MEDS ORDERED: KETOROLAC TROMETHAMINE 30 MG/ML VIAL IM ONE (22:30)
[2016-08-03] MEDS ORDERED: INSULIN REGULAR, HUMAN 100 UNITS/ML SQ ONE
[2016-08-03 00:33] VITALS: BP 144/89
== END 2016-08-03 00:42 | disposition home or self-care (01) ==
LOC: EMS 21:21
DX: M79.672 Pain in left foot (principal); M79.602 Pain in left arm; G89.29 Other chronic pain; E11.9 Type 2 diabetes mellitus without complications; I10 Essential (primary) hypertension; I25.2 Old myocardial infarction; F17.210 Nicotine dependence, cigarettes, uncomplicated; Z86.73 Personal history of transient ischemic attack (TIA), and cerebral infarction without residual deficits; Z79.82 Long term (current) use of aspirin; Z88.5 Allergy status to narcotic agent; Z88.8 Allergy status to other drugs, medicaments and biological substances
CPT/HCPCS: 73620; 82962; 96372; 99284; J1885

== ENCOUNTER 2016-08-03 09:36 | Emergency (ER) | payer MEDICARE, OTHER ==
[~2016-08-03] VITALS: Ht 165.1 cm; Wt 81.8 kg
[2016-08-03 10:02] LABS: GLUCOSE,POINT OF CARE 87 MG/DL (70-110)
[2016-08-03] MEDS ORDERED: SODIUM CHLORIDE 0.9% 1,000 ML IV ONE (10:45)
[2016-08-03] MEDS ORDERED: ACETAMINOPHEN 1000 MG/ISO-OSM 100 ML IV ONE (10:45)
[2016-08-03 11:17] LABS: BASOPHILS % (AUTO) 0.5 % (0.0-2.0); EOSINOPHILS % (AUTO) 1.7 % (1.0-6.0); HEMATOCRIT 41.8 % (36-46); HEMOGLOBIN 13.5 g/dL (12.0-16.0); LYMPHOCYTES # (AUTO) 1.7 K/uL (1.0-4.8); LYMPHOCYTES % (AUTO) 33.7 % (22.0-44.0); MEAN CORPUSCULAR HEMOGLOBIN 27.9 pg (26.0-34.0); MEAN CORPUSCULAR HGB CONC 32.4 G/dL (31.0-37.0); MEAN CORPUSCULAR VOLUME 86 fL (80-100); MONOCYTES # (AUTO) 0.4 K/uL (0.1-1.0); MONOCYTES % (AUTO) 7.3 % (2.0-9.0); NEUTROPHILS # (AUTO) 2.9 K/uL (1.8-7.7); NEUTROPHILS % (AUTO) 56.8 % (40.0-70.0); PLATELET COUNT (AUTO) 214 K/uL (150-450); RED BLOOD CELL COUNT(AUTO) 4.86 MIL/uL (4.00-5.20); RED CELL DISTRIBUTION WIDTH 17.1 % (11.5-14.5)
[2016-08-03 11:26] LABS: ANION GAP 7 mmol/L (8-16); CALCIUM, TOTAL 9.1 mg/dL (8.8-10.5); CARBON DIOXIDE 25 mmol/L (22-29); CHLORIDE 106 mmol/L (98-107); CREATININE 0.61 mg/dL (0.60-1.30); GLOMERULAR FILTR. RATE CALC > 60 mL/min (>60); POTASSIUM 4.1 mmol/L (3.5-5.1); SODIUM SERUM 138 mmol/L (136-145); UREA NITROGEN, BLOOD 18 mg/dL (7-18)
[2016-08-03 11:32] LABS: ALANINE AMINOTRANSFERASE 14 U/L (12-78); ALBUMIN 3.5 g/dL (3.4-5.0); ASPARTATE AMINOTRANSFERASE 14 U/L (15-37); BILIRUBIN,TOTAL 0.1 mg/dL (0.1-1.0); TOTAL PROTEIN, SERUM 7.6 g/dL (6.4-8.2)
[2016-08-03] MEDS ORDERED: PHENYTOIN SODIUM 100 MG ER CAPSULE PO ONE (12:30)
[2016-08-03] MEDS ORDERED: ACETAMINOPHEN 325 MG TABLET PO ONE (12:30)
[2016-08-03 12:46] LABS: INFLUENZA TYPE B NEGATIVE FOR TYPE B (NEGATIVE)
[2016-08-03 14:19] VITALS: BP 129/81
== END 2016-08-03 14:30 | disposition home or self-care (01) ==
LOC: EMS 09:38
DX: B34.9 Viral infection, unspecified (principal); R79.1 Abnormal coagulation profile; F17.210 Nicotine dependence, cigarettes, uncomplicated; I10 Essential (primary) hypertension; E11.9 Type 2 diabetes mellitus without complications; Z86.73 Personal history of transient ischemic attack (TIA), and cerebral infarction without residual deficits; Z79.82 Long term (current) use of aspirin; Z88.0 Allergy status to penicillin; Z88.8 Allergy status to other drugs, medicaments and biological substances; Z99.3 Dependence on wheelchair
CPT/HCPCS: 51701; 82962; 87430; 87804; 93005; 99285

== ENCOUNTER 2016-08-04 23:51 | Inpatient (IN) | payer MEDICARE, OTHER ==
[~2016-08-04] VITALS: Ht 157.5 cm; Wt 87.0 kg
[2016-08-05 00:17] LABS: GLUCOSE,POINT OF CARE 101 MG/DL (70-110)
[2016-08-05] MEDS ORDERED: DSS100 PO (00:26)
[2016-08-05] MEDS ORDERED: BENA20 PO (00:26)
[2016-08-05] MEDS ORDERED: ONDANSETRON HCL 4 MG/2 ML VIAL IVP ONE (00:30)
[2016-08-05] MEDS ORDERED: MORPHINE SULFATE 4 MG/ML SYRINGE IVP ONE ×2 (00:30→02:30)
[2016-08-05 00:47] LABS: BASOPHILS % (AUTO) 0.4 % (0.0-2.0); EOSINOPHILS % (AUTO) 1.3 % (1.0-6.0); HEMATOCRIT 43.7 % (36-46); LYMPHOCYTES # (AUTO) 2.9 K/uL (1.0-4.8); LYMPHOCYTES % (AUTO) 35.9 % (22.0-44.0); MEAN CORPUSCULAR HEMOGLOBIN 27.8 pg (26.0-34.0); MEAN CORPUSCULAR VOLUME 87 fL (80-100); MONOCYTES # (AUTO) 0.7 K/uL (0.1-1.0); MONOCYTES % (AUTO) 8.5 % (2.0-9.0); NEUTROPHILS # (AUTO) 4.3 K/uL (1.8-7.7); NEUTROPHILS % (AUTO) 53.9 % (40.0-70.0); PLATELET COUNT (AUTO) 262 K/uL (150-450); RED BLOOD CELL COUNT(AUTO) 5.04 MIL/uL (4.00-5.20); RED CELL DISTRIBUTION WIDTH 16.9 % (11.5-14.5)
[2016-08-05 01:07] LABS: ANION GAP 7 mmol/L (8-16); CALCIUM, TOTAL 9.3 mg/dL (8.8-10.5); CARBON DIOXIDE 27 mmol/L (22-29); CHLORIDE 106 mmol/L (98-107); CREATININE 0.63 mg/dL (0.60-1.30); GLOMERULAR FILTR. RATE CALC > 60 mL/min (>60); POTASSIUM 3.8 mmol/L (3.5-5.1); SODIUM SERUM 140 mmol/L (136-145); UREA NITROGEN, BLOOD 16 mg/dL (7-18)
[2016-08-05 01:13] LABS: ALANINE AMINOTRANSFERASE 16 U/L (12-78); ALBUMIN 3.6 g/dL (3.4-5.0); ASPARTATE AMINOTRANSFERASE 17 U/L (15-37); BILIRUBIN,TOTAL 0.2 mg/dL (0.1-1.0); TOTAL PROTEIN, SERUM 7.8 g/dL (6.4-8.2)
[2016-08-05] MEDS ORDERED: BARIUM SULFATE 0.1% SUSPENSION 450 ML BOTTLE PO ONE (01:15)
[2016-08-05] MEDS ORDERED: IOVERSOL 350 MG/ML 100 ML VIAL ONE (02:56)
[2016-08-05 03:14] LABS: GLUCOSE, URINE (UA) NEGATIVE (NEGATIVE); KETONES,URINE NEGATIVE (NEGATIVE); LEUKOCYTE ESTERASE ,URINE NEGATIVE (NEGATIVE); OCCULT BLOOD,URINE LARGE (NEGATIVE); PH,URINE 6.5 (5.0-8.0); PROTEIN,URINE NEGATIVE (NEGATIVE)
[2016-08-05 03:16] LABS: ADD UA MICROSCOPIC YES; APPEARANCE,URINE SLIGHTLY CLOUDY (CLEAR)
[2016-08-05 03:26] LABS: WBC,URINE 0-2 /HPF (0-5)
[2016-08-05 03:27] LABS: SQUAMOUS EPITHELIAL CELL,UR Moderate /LPF (None Seen)
[2016-08-05] MEDS ORDERED: ONDANSETRON HCL 4 MG/2 ML VIAL IVP PRN ×2 (04:30→04:45)
[2016-08-05] MEDS ORDERED: ACETAMINOPHEN 325 MG TABLET PO PRN ×2 (04:30→04:45)
[2016-08-05] MEDS ORDERED: HYDROmorphone 2 MG/ML SYRINGE IVP ONE (04:30)
[2016-08-05] MEDS ORDERED: OxyCODONE HCL/ACETAMINOPHEN 5-325 MG TABLET PO PRN (04:30)
[2016-08-05] MEDS ORDERED: ZOLPIDEM TARTRATE 10 MG TABLET PO PRN (04:30)
[2016-08-05] MEDS ORDERED: 0.9% SODIUM CHLORIDE 10 ML SYRINGE IVP PRN (04:45)
[2016-08-05] MEDS ORDERED: HYDROmorphone 2 MG/ML SYRINGE IVP PRN (04:45)
[2016-08-05 05:39] VITALS: BP 132/75
[2016-08-05 06:27] LABS: GLUCOSE COMMENT 1 Received Meds; GLUCOSE,POINT OF CARE 98 MG/DL (70-110)
[2016-08-05] MEDS ORDERED: GlipiZIDE 10 MG TABLET PO SCH (06:30)
[2016-08-05 07:33] VITALS: BP 104/62
[2016-08-05] MEDS ORDERED: BENAZEPRIL HCL 20 MG TABLET PO SCH (09:00)
[2016-08-05] MEDS: PANTOPRAZOLE SODIUM 40 MG DR TABLET PO SCH (09:03)
[2016-08-05] MEDS: GABAPENTIN 400 MG CAPSULE PO SCH ×5 (09:04→20:49)
[2016-08-05] MEDS: TOPIRAMATE 25 MG TABLET PO SCH ×2 (09:05→20:50)
[2016-08-05] MEDS: TICAGRELOR 90 MG TABLET PO SCH ×2 (09:06→20:48)
[2016-08-05] MEDS: DULoxetine HCL 30 MG CAPSULE PO SCH ×2 (09:07→20:49)
[2016-08-05] MEDS: ASPIRIN 81 MG CHEWABLE TABLET PO SCH (09:08)
[2016-08-05] MEDS: DOCUSATE SODIUM 100 MG CAPSULE PO SCH (09:08)
[2016-08-05] MEDS: BACLOFEN 10 MG TABLET PO SCH ×3 (09:09→20:49)
[2016-08-05] MEDS: BENAZEPRIL HCL 20 MG TABLET PO SCH (09:09)
[2016-08-05] MEDS: MORPHINE SULFATE 2 MG/ML SYRINGE IVP PRN ×2 (09:12→14:03)
[2016-08-05 11:10] VITALS: BP 114/64
[2016-08-05 12:22] LABS: GLUCOSE,POINT OF CARE 104 MG/DL (70-110)
[2016-08-05 17:47] LABS: GLUCOSE,POINT OF CARE 129 MG/DL (70-110)
[2016-08-05 20:28] VITALS: BP 99/60
[2016-08-05] MEDS ORDERED: PHENYTOIN SODIUM 100 MG ER CAPSULE PO SCH (21:00)
[2016-08-05] MEDS ORDERED: TraZODone HCL 100 MG TABLET PO SCH (21:00)
[2016-08-06 00:42] LABS: GLUCOSE,POINT OF CARE 105 MG/DL (70-110)
[2016-08-06 03:50] VITALS: BP 134/87
[2016-08-06] MEDS: MORPHINE SULFATE 2 MG/ML SYRINGE IVP PRN ×2 (05:02→09:01)
[2016-08-06 06:12] LABS: GLUCOSE,POINT OF CARE 109 MG/DL (70-110)
[2016-08-06 07:27] VITALS: BP 124/72
[2016-08-06] MEDS: DOCUSATE SODIUM 100 MG CAPSULE PO SCH (07:57)
[2016-08-06] MEDS: DULoxetine HCL 30 MG CAPSULE PO SCH (07:57)
[2016-08-06] MEDS: PANTOPRAZOLE SODIUM 40 MG DR TABLET PO SCH (07:57)
[2016-08-06] MEDS: BENAZEPRIL HCL 20 MG TABLET PO SCH (07:57)
[2016-08-06] MEDS: TICAGRELOR 90 MG TABLET PO SCH (07:58)
[2016-08-06] MEDS: BACLOFEN 10 MG TABLET PO SCH ×2 (07:58→15:52)
[2016-08-06] MEDS: ASPIRIN 81 MG CHEWABLE TABLET PO SCH (07:58)
[2016-08-06] MEDS: TOPIRAMATE 25 MG TABLET PO SCH (07:59)
[2016-08-06] MEDS: GABAPENTIN 400 MG CAPSULE PO SCH ×3 (07:59→15:52)
[2016-08-06 11:01] VITALS: BP 100/59
[2016-08-06 12:42] LABS: GLUCOSE,POINT OF CARE 73 MG/DL (70-110)
[2016-08-06 15:14] VITALS: BP 132/78
[2016-08-06 19:43] VITALS: BP 119/75
== END 2016-08-06 19:50 | DRG 392 ==
LOC: EMS 23:54 → 6N 08-05 04:00 → UNDODISIN 08-06 10:00
PROVIDERS: ADMIT Hospitalist; ATTEND Hospitalist
DX: K52.9 Noninfective gastroenteritis and colitis, unspecified (principal); R10.31 Right lower quadrant pain; F17.210 Nicotine dependence, cigarettes, uncomplicated; E11.9 Type 2 diabetes mellitus without complications; I10 Essential (primary) hypertension; H54.41 Blindness, right eye, normal vision left eye; E78.5 Hyperlipidemia, unspecified; G40.909 Epilepsy, unspecified, not intractable, without status epilepticus; F32.9 Major depressive disorder, single episode, unspecified; I25.10 Atherosclerotic heart disease of native coronary artery without angina pectoris; N20.0 Calculus of kidney; K42.9 Umbilical hernia without obstruction or gangrene; D35.02 Benign neoplasm of left adrenal gland; Z88.1 Allergy status to other antibiotic agents; Z88.8 Allergy status to other drugs, medicaments and biological substances; Z99.3 Dependence on wheelchair; Z86.73 Personal history of transient ischemic attack (TIA), and cerebral infarction without residual deficits; I25.2 Old myocardial infarction; Z79.82 Long term (current) use of aspirin
CPT/HCPCS: 74177; 82962; 87081; 87086; 93005; 96374; 96375; 96376; 99285; J1170; J2270; J2405

== ENCOUNTER 2016-08-26 20:16 | Inpatient (IN) | payer MEDICARE, OTHER ==
[~2016-08-26] VITALS: Ht 167.6 cm; Wt 84.2 kg
[~2016-08-26 20:16] MED LIST changes: +BENA20 PO; +DSS100 PO
[2016-08-26 20:42] LABS: GLUCOSE,POINT OF CARE 119 MG/DL (70-110)
[2016-08-26 21:09] LABS: BASOPHILS % (AUTO) 0.4 % (0.0-2.0); EOSINOPHILS % (AUTO) 0.4 % (1.0-6.0); HEMATOCRIT 46.7 % (36-46); HEMOGLOBIN 14.8 g/dL (12.0-16.0); LYMPHOCYTES # (AUTO) 2.5 K/uL (1.0-4.8); LYMPHOCYTES % (AUTO) 36.6 % (22.0-44.0); MEAN CORPUSCULAR HEMOGLOBIN 27.5 pg (26.0-34.0); MEAN CORPUSCULAR HGB CONC 31.6 G/dL (31.0-37.0); MEAN CORPUSCULAR VOLUME 87 fL (80-100); MONOCYTES # (AUTO) 0.5 K/uL (0.1-1.0); MONOCYTES % (AUTO) 7.4 % (2.0-9.0); NEUTROPHILS # (AUTO) 3.7 K/uL (1.8-7.7); NEUTROPHILS % (AUTO) 55.2 % (40.0-70.0); PLATELET COUNT (AUTO) 289 K/uL (150-450); RED BLOOD CELL COUNT(AUTO) 5.36 MIL/uL (4.00-5.20); RED CELL DISTRIBUTION WIDTH 17.9 % (11.5-14.5); WHITE BLOOD COUNT (AUTO) 6.8 K/uL (4.5-11.0)
[2016-08-26 21:24] LABS: ANION GAP 13 mmol/L (8-16); CALCIUM, TOTAL 9.9 mg/dL (8.8-10.5); CARBON DIOXIDE 25 mmol/L (22-29); CHLORIDE 106 mmol/L (98-107); CREATININE 0.65 mg/dL (0.60-1.30); GLOMERULAR FILTR. RATE CALC > 60 mL/min (>60); POTASSIUM 3.3 mmol/L (3.5-5.1); SODIUM SERUM 144 mmol/L (136-145); UREA NITROGEN, BLOOD 17 mg/dL (7-18)
[2016-08-26 21:29] LABS: ALANINE AMINOTRANSFERASE 31 U/L (12-78); ALBUMIN 4.1 g/dL (3.4-5.0); ASPARTATE AMINOTRANSFERASE 28 U/L (15-37); BILIRUBIN,TOTAL 0.4 mg/dL (0.1-1.0); TOTAL PROTEIN, SERUM 8.9 g/dL (6.4-8.2)
[2016-08-26 21:31] LABS: RBC MORPHOLOGY COMMENT ABNORMAL RBC MORPH
[2016-08-26] MEDS ORDERED: POTASSIUM CHLORIDE 20 MEQ ER TABLET PO ONE (21:45)
[2016-08-26] MEDS ORDERED: 0.9% SODIUM CHLORIDE 10 ML SYRINGE IVP PRN ×2 (23:00→23:45)
[2016-08-26] MEDS ORDERED: ONDANSETRON HCL 4 MG/2 ML VIAL IVP PRN (23:00)
[2016-08-26] MEDS ORDERED: ACETAMINOPHEN 325 MG TABLET PO PRN ×2 (23:00→23:45)
[2016-08-26] MEDS ORDERED: CloNIDine HCL 0.1 MG TABLET PO ONE (23:15)
[2016-08-26] MEDS ORDERED: ACETAMINOPHEN 650 MG/20.3 ML SOLUTION UDCUP PO PRN (23:45)
[2016-08-27] VITALS (7 sets, daily range): BP systolic 132–196; BP diastolic 84–119
[2016-08-27] MEDS ORDERED: DEXTROSE 50%-WATER 25 GM/50 ML SYRINGE IVP PRN (01:30)
[2016-08-27] MEDS: HYDROCODONE/ACETAMINOPHEN 5-325 MG TABLET PO PRN ×5 (06:40→23:39)
[2016-08-27 06:46] LABS: ALANINE AMINOTRANSFERASE 36 U/L (12-78); ALBUMIN 3.8 g/dL (3.4-5.0); ANION GAP 11 mmol/L (8-16); ASPARTATE AMINOTRANSFERASE 39 U/L (15-37); BILIRUBIN,TOTAL 0.4 mg/dL (0.1-1.0); CALCIUM, TOTAL 9.7 mg/dL (8.8-10.5); CARBON DIOXIDE 25 mmol/L (22-29); CHLORIDE 107 mmol/L (98-107); CREATININE 0.46 mg/dL (0.60-1.30); GLOMERULAR FILTR. RATE CALC > 60 mL/min (>60); POTASSIUM 3.8 mmol/L (3.5-5.1); SODIUM SERUM 143 mmol/L (136-145); TOTAL PROTEIN, SERUM 8.5 g/dL (6.4-8.2); UREA NITROGEN, BLOOD 18 mg/dL (7-18)
[2016-08-27 07:17] LABS: GLUCOSE,POINT OF CARE 111 MG/DL (70-110)
[2016-08-27] MEDS: NICOTINE 7 MG/24 HOUR PATCH TD SCH (08:26)
[2016-08-27] MEDS: PANTOPRAZOLE SODIUM 40 MG DR TABLET PO SCH (08:26)
[2016-08-27 11:58] LABS: GLUCOSE,POINT OF CARE 135 MG/DL (70-110)
[2016-08-27] MEDS: INSULIN ASPART 100 UNITS/ML SQ PRN (12:15)
[2016-08-27 19:47] LABS: GLUCOSE,POINT OF CARE 166 MG/DL (70-110)
[2016-08-28] MEDS: CloNIDine HCL 0.2 MG TABLET PO PRN ×3 (00:16→15:38)
[2016-08-28] MEDS: HYDROCODONE/ACETAMINOPHEN 5-325 MG TABLET PO PRN ×5 (03:06→20:13)
[2016-08-28 06:03] VITALS: BP 144/112
[2016-08-28 06:13] LABS: GLUCOSE,POINT OF CARE 134 MG/DL (70-110)
[2016-08-28 07:31] VITALS: BP 161/94
[2016-08-28] MEDS: PANTOPRAZOLE SODIUM 40 MG DR TABLET PO SCH (08:14)
[2016-08-28] MEDS: NICOTINE 7 MG/24 HOUR PATCH TD SCH (08:15)
[2016-08-28] MEDS ORDERED: LACTULOSE 20 GM/30 ML SOLUTION UDCUP PO ONE (09:45)
[2016-08-28] MEDS ORDERED: BISACODYL 10 MG RECTAL RECTAL SUPPOSITORY PR ONE (09:45)
[2016-08-28 11:37] LABS: GLUCOSE,POINT OF CARE 141 MG/DL (70-110)
[2016-08-28 11:39] VITALS: BP 165/109
[2016-08-28] MEDS: INSULIN ASPART 100 UNITS/ML SQ PRN ×2 (12:17→20:25)
[2016-08-28 15:32] VITALS: BP 193/111
[2016-08-28 17:26] VITALS: BP 163/100
[2016-08-28 17:47] LABS: GLUCOSE,POINT OF CARE 129 MG/DL (70-110)
[2016-08-28 20:50] VITALS: BP 101/81
[2016-08-28 22:06] LABS: GLUCOSE,POINT OF CARE 165 MG/DL (70-110)
[2016-08-29 00:27] VITALS: BP 134/96
[2016-08-29] MEDS: HYDROCODONE/ACETAMINOPHEN 5-325 MG TABLET PO PRN ×3 (02:41→18:34)
[2016-08-29 04:16] VITALS: BP 137/88
[2016-08-29 06:12] LABS: GLUCOSE,POINT OF CARE 144 MG/DL (70-110)
[2016-08-29 08:38] VITALS: BP 182/107
[2016-08-29] MEDS: NICOTINE 7 MG/24 HOUR PATCH TD SCH (08:43)
[2016-08-29] MEDS: PANTOPRAZOLE SODIUM 40 MG DR TABLET PO SCH (08:44)
[2016-08-29 11:52] VITALS: BP 134/88
[2016-08-29 12:27] LABS: GLUCOSE,POINT OF CARE 67 MG/DL (70-110)
[2016-08-29 14:31] LABS: GLUCOSE,POINT OF CARE 274 MG/DL (70-110)
[2016-08-29 16:09] VITALS: BP 101/66
[2016-08-29 19:52] LABS: GLUCOSE,POINT OF CARE 188 MG/DL (70-110)
[2016-08-29 20:05] VITALS: BP 107/68
[2016-08-29] MEDS ORDERED: TraZODone HCL 100 MG TABLET PO SCH (21:00)
[2016-08-29] MEDS ORDERED: DULoxetine HCL 30 MG CAPSULE PO SCH (21:00)
[2016-08-29] MEDS ORDERED: TOPIRAMATE 25 MG TABLET PO SCH (21:00)
[2016-08-29] MEDS ORDERED: GABAPENTIN 400 MG CAPSULE PO SCH (21:00)
[2016-08-29] MEDS ORDERED: BACLOFEN 10 MG TABLET PO SCH (21:00)
[2016-08-29] MEDS ORDERED: LevETIRAcetam 500 MG TABLET PO SCH (21:00)
[2016-08-29] MEDS ORDERED: PHENYTOIN SODIUM 100 MG ER CAPSULE PO ONE (21:15)
[2016-08-30] MEDS ORDERED: GlipiZIDE 10 MG TABLET PO SCH (06:30)
[2016-08-30] MEDS ORDERED: ASPIRIN 81 MG CHEWABLE TABLET PO SCH (09:00)
[2016-08-30] MEDS ORDERED: BENAZEPRIL HCL 20 MG TABLET PO SCH (09:00)
[2016-08-30] MEDS ORDERED: DOCUSATE SODIUM 100 MG CAPSULE PO SCH (09:00)
== END 2016-08-29 22:05 | DRG 395 ==
LOC: EMS 20:18 → 6N 22:58
PROVIDERS: ADMIT Internal Medicine; ATTEND Internal Medicine
DX: K64.9 Unspecified hemorrhoids (principal); I10 Essential (primary) hypertension; E11.9 Type 2 diabetes mellitus without complications; E78.5 Hyperlipidemia, unspecified; G40.909 Epilepsy, unspecified, not intractable, without status epilepticus; I25.10 Atherosclerotic heart disease of native coronary artery without angina pectoris; F17.210 Nicotine dependence, cigarettes, uncomplicated; H54.8 Legal blindness, as defined in USA; Z53.29 Procedure and treatment not carried out because of patient's decision for other reasons; F32.9 Major depressive disorder, single episode, unspecified; E87.6 Hypokalemia; F10.20 Alcohol dependence, uncomplicated; Z86.73 Personal history of transient ischemic attack (TIA), and cerebral infarction without residual deficits; Z95.5 Presence of coronary angioplasty implant and graft; Z88.1 Allergy status to other antibiotic agents; I25.2 Old myocardial infarction; Z79.82 Long term (current) use of aspirin; Z88.8 Allergy status to other drugs, medicaments and biological substances; Z99.3 Dependence on wheelchair; I16.0 Hypertensive urgency
CPT/HCPCS: 82962; 87081; 97112; 97116; 97163; 97167; 97530; 99285

== ENCOUNTER 2016-10-12 13:34 | Emergency (ER) | payer MEDICARE, OTHER ==
[~2016-10-12] VITALS: Ht 165.1 cm; Wt 86.0 kg
[2016-10-12 14:21] VITALS: BP 151/81
[2016-10-12] MEDS ORDERED: BACLOFEN 10 MG TABLET PO ONE (15:45)
[2016-10-12] MEDS ORDERED: KETOROLAC TROMETHAMINE 60 MG/2 ML VIAL IM ONE (15:45)
== END 2016-10-12 16:31 | disposition home or self-care (01) ==
LOC: EMS 13:37
DX: S16.1XXA Strain of muscle, fascia and tendon at neck level, initial encounter (principal); I25.2 Old myocardial infarction; I10 Essential (primary) hypertension; E11.9 Type 2 diabetes mellitus without complications; F17.210 Nicotine dependence, cigarettes, uncomplicated; Z88.0 Allergy status to penicillin; Z88.1 Allergy status to other antibiotic agents; Z88.8 Allergy status to other drugs, medicaments and biological substances; Z79.82 Long term (current) use of aspirin; X58.XXXA Exposure to other specified factors, initial encounter; Y93.89 Activity, other specified; Y92.89 Other specified places as the place of occurrence of the external cause; Y99.8 Other external cause status
CPT/HCPCS: 82962; 96372; 99283; J1885

== ENCOUNTER 2016-10-26 21:35 | Emergency (ER) | payer MEDICARE, OTHER ==
[~2016-10-26] VITALS: Ht 167.6 cm; Wt 88.6 kg
[2016-10-26 21:47] LABS: GLUCOSE,POINT OF CARE 91 MG/DL (70-110)
[2016-10-27 03:17] VITALS: BP 135/71
== END 2016-10-27 03:19 | disposition home or self-care (01) ==
LOC: EMS 21:37
DX: S30.0XXA Contusion of lower back and pelvis, initial encounter (principal); E11.9 Type 2 diabetes mellitus without complications; I10 Essential (primary) hypertension; I25.2 Old myocardial infarction; F17.210 Nicotine dependence, cigarettes, uncomplicated; Z86.73 Personal history of transient ischemic attack (TIA), and cerebral infarction without residual deficits; Z79.82 Long term (current) use of aspirin; Z88.0 Allergy status to penicillin; Z88.1 Allergy status to other antibiotic agents; Z88.8 Allergy status to other drugs, medicaments and biological substances; W05.0XXA Fall from non-moving wheelchair, initial encounter; Y93.89 Activity, other specified; Y92.89 Other specified places as the place of occurrence of the external cause; Y99.8 Other external cause status
CPT/HCPCS: 72131; 82962; 99284

== ENCOUNTER 2016-10-31 23:55 | Emergency (ER) | payer MEDICARE, OTHER ==
[~2016-10-31] VITALS: Ht 165.1 cm; Wt 77.3 kg
[2016-11-01] MEDS ORDERED: HYDROCODONE/ACETAMINOPHEN 5-325 MG TABLET PO ONE (01:00)
[2016-11-01] MEDS ORDERED: BACLOFEN 10 MG TABLET PO ONE (01:00)
[2016-11-01] MEDS ORDERED: KETOROLAC TROMETHAMINE 60 MG/2 ML VIAL IM ONE (01:00)
[2016-11-01 03:57] VITALS: BP 124/70
== END 2016-11-01 04:29 | disposition home or self-care (01) ==
LOC: EMS 11-01
DX: S30.0XXA Contusion of lower back and pelvis, initial encounter (principal); S60.212A Contusion of left wrist, initial encounter; S90.02XA Contusion of left ankle, initial encounter; I25.2 Old myocardial infarction; I10 Essential (primary) hypertension; E11.9 Type 2 diabetes mellitus without complications; F17.210 Nicotine dependence, cigarettes, uncomplicated; Z86.73 Personal history of transient ischemic attack (TIA), and cerebral infarction without residual deficits; Z88.0 Allergy status to penicillin; Z79.82 Long term (current) use of aspirin; Z88.8 Allergy status to other drugs, medicaments and biological substances; Z88.1 Allergy status to other antibiotic agents; W19.XXXA Unspecified fall, initial encounter; Y93.89 Activity, other specified; Y92.89 Other specified places as the place of occurrence of the external cause; Y99.8 Other external cause status
CPT/HCPCS: 72100; 73130; 73503; 73562; 73630; 82962; 96372; 99284; 99406; J1885

== ENCOUNTER 2016-11-02 19:42 | Emergency (ER) | payer MEDICARE, OTHER ==
[~2016-11-02] VITALS: Ht 167.6 cm; Wt 88.6 kg
[2016-11-02 19:58] LABS: GLUCOSE,POINT OF CARE 107 MG/DL (70-110)
[2016-11-02] MEDS ORDERED: ASPIRIN 81 MG CHEWABLE TABLET PO ONE (20:15)
[2016-11-02 20:28] LABS: BASOPHILS % (AUTO) 0.4 % (0.0-2.0); EOSINOPHILS % (AUTO) 1.1 % (1.0-6.0); HEMATOCRIT 38.1 % (36-46); HEMOGLOBIN 12.6 g/dL (12.0-16.0); LYMPHOCYTES # (AUTO) 2.2 K/uL (1.0-4.8); LYMPHOCYTES % (AUTO) 33.7 % (22.0-44.0); MEAN CORPUSCULAR HEMOGLOBIN 28.9 pg (26.0-34.0); MEAN CORPUSCULAR HGB CONC 33.1 G/dL (31.0-37.0); MEAN CORPUSCULAR VOLUME 87 fL (80-100); MONOCYTES # (AUTO) 0.5 K/uL (0.1-1.0); MONOCYTES % (AUTO) 8.1 % (2.0-9.0); NEUTROPHILS # (AUTO) 3.7 K/uL (1.8-7.7); NEUTROPHILS % (AUTO) 56.7 % (40.0-70.0); PLATELET COUNT (AUTO) 248 K/uL (150-450); RED BLOOD CELL COUNT(AUTO) 4.37 MIL/uL (4.00-5.20); RED CELL DISTRIBUTION WIDTH 16.1 % (11.5-14.5); WHITE BLOOD COUNT (AUTO) 6.5 K/uL (4.5-11.0)
[2016-11-02 20:40] LABS: ANION GAP 8 mmol/L (8-16); CALCIUM, TOTAL 8.9 mg/dL (8.8-10.5); CARBON DIOXIDE 27 mmol/L (22-29); CHLORIDE 107 mmol/L (98-107); CREATININE 0.76 mg/dL (0.60-1.30); GLOMERULAR FILTR. RATE CALC > 60 mL/min (>60); POTASSIUM 3.9 mmol/L (3.5-5.1); SODIUM SERUM 142 mmol/L (136-145); UREA NITROGEN, BLOOD 14 mg/dL (7-18)
[2016-11-02 21:03] LABS: B-TYPE NATRIURETIC PEPTIDE 71 pg/mL (0-100)
[2016-11-02 21:04] LABS: ALANINE AMINOTRANSFERASE 14 U/L (12-78); ALBUMIN 3.7 g/dL (3.4-5.0); ASPARTATE AMINOTRANSFERASE 19 U/L (15-37); BILIRUBIN,TOTAL 0.2 mg/dL (0.1-1.0); CREATINE KINASE MB 1.6 ng/mL (0-5); CREATINE KINASE, TOTAL 90 U/L (26-192); TOTAL PROTEIN, SERUM 7.8 g/dL (6.4-8.2)
[2016-11-02 21:49] VITALS: BP 108/63
[2016-11-02 22:11] LABS: APPEARANCE,URINE CLOUDY (CLEAR); GLUCOSE, URINE (UA) NEGATIVE (NEGATIVE); KETONES,URINE NEGATIVE (NEGATIVE); LEUKOCYTE ESTERASE ,URINE NEGATIVE (NEGATIVE); OCCULT BLOOD,URINE LARGE (NEGATIVE); PROTEIN,URINE NEGATIVE (NEGATIVE)
[2016-11-02 22:16] LABS: ADD UA MICROSCOPIC YES
[2016-11-02 22:27] LABS: SQUAMOUS EPITHELIAL CELL,UR Rare /LPF (None Seen)
[2016-11-02 22:28] LABS: RBC,URINE 26-50 /HPF (0-2)
[2016-11-02 23:05] LABS: CREATINE KINASE MB 1.2 ng/mL (0-5); CREATINE KINASE, TOTAL 77 U/L (26-192)
== END 2016-11-03 | disposition home or self-care (01) ==
LOC: EMS 19:46
DX: R07.89 Other chest pain (principal); K64.9 Unspecified hemorrhoids; G81.90 Hemiplegia, unspecified affecting unspecified side; H92.01 Otalgia, right ear; I10 Essential (primary) hypertension; I25.2 Old myocardial infarction; E11.9 Type 2 diabetes mellitus without complications; F17.210 Nicotine dependence, cigarettes, uncomplicated; Z86.73 Personal history of transient ischemic attack (TIA), and cerebral infarction without residual deficits; Z88.0 Allergy status to penicillin; Z88.1 Allergy status to other antibiotic agents; Z79.82 Long term (current) use of aspirin; W05.0XXA Fall from non-moving wheelchair, initial encounter; Y93.89 Activity, other specified; Y92.89 Other specified places as the place of occurrence of the external cause; Y99.8 Other external cause status
CPT/HCPCS: 82962; 93005; 99285

== ENCOUNTER 2016-12-18 15:56 | Inpatient (IN) | payer MEDICARE, OTHER ==
[~2016-12-18] VITALS: Ht 167.6 cm; Wt 85.5 kg
[2016-12-18] MEDS ORDERED: SIME80 PO (16:14)
[2016-12-18] MEDS ORDERED: ROSU20 PO (16:14)
[2016-12-18] MEDS ORDERED: HYDR-309 PO (16:14)
[2016-12-18] MEDS ORDERED: METO25 PO (16:14)
[2016-12-18] MEDS ORDERED: ALBU2TAB42 PO (16:14)
[2016-12-18] MEDS ORDERED: ASPIRIN 325 MG TABLET PO ONE (17:00)
[2016-12-18] MEDS ORDERED: NITROGLYCERIN 0.4 MG SUBLINGUAL TABLET #25 SL ONE (17:00)
[2016-12-18 17:09] LABS: ANION GAP 11 mmol/L (8-16); BASOPHILS # (AUTO) 0.09 K/uL (0.00-0.20); BASOPHILS % (AUTO) 1.1 % (0.0-2.0); CALCIUM, TOTAL 9.2 mg/dL (8.8-10.5); CARBON DIOXIDE 27 mmol/L (22-29); CHLORIDE 105 mmol/L (98-107); CREATININE 0.65 mg/dL (0.60-1.30); EOSINOPHILS # (AUTO) 0.08 K/uL (0.00-0.70); EOSINOPHILS % (AUTO) 0.95 % (1.0-6.0); GLOMERULAR FILTR. RATE CALC > 60 mL/min (>60); HEMOGLOBIN 13.4 g/dL (12.0-16.0); LYMPHOCYTES # (AUTO) 3.2 K/uL (1.0-4.8); LYMPHOCYTES % (AUTO) 37.7 % (22.0-44.0); MEAN CORPUSCULAR HEMOGLOBIN 28.4 pg (26.0-34.0); MEAN CORPUSCULAR HGB CONC 32.8 G/dL (31.0-37.0); MEAN CORPUSCULAR VOLUME 87 fL (80-100); MONOCYTES # (AUTO) 0.7 K/uL (0.1-1.0); MONOCYTES % (AUTO) 8.4 % (2.0-9.0); NEUTROPHILS # (AUTO) 4.4 K/uL (1.8-7.7); NEUTROPHILS % (AUTO) 51.8 % (40.0-70.0); PLATELET COUNT (AUTO) 179 K/uL (150-450); POTASSIUM 4.3 mmol/L (3.5-5.1); RED BLOOD CELL COUNT(AUTO) 4.73 MIL/uL (4.00-5.20); RED CELL DISTRIBUTION WIDTH 15.5 % (11.5-14.5); SODIUM SERUM 143 mmol/L (136-145); UREA NITROGEN, BLOOD 16 mg/dL (7-18); WHITE BLOOD COUNT (AUTO) 8.4 K/uL (4.5-11.0)
[2016-12-18 17:14] LABS: ALANINE AMINOTRANSFERASE 17 U/L (12-78); ALBUMIN 3.6 g/dL (3.4-5.0); ASPARTATE AMINOTRANSFERASE 15 U/L (15-37); BILIRUBIN,TOTAL 0.2 mg/dL (0.1-1.0); TOTAL PROTEIN, SERUM 7.1 g/dL (6.4-8.2)
[2016-12-18] MEDS ORDERED: ACETAMINOPHEN 325 MG TABLET PO PRN ×2 (19:30→23:00)
[2016-12-18] MEDS ORDERED: 0.9% SODIUM CHLORIDE 10 ML SYRINGE IVP PRN (19:30)
[2016-12-18] MEDS ORDERED: ONDANSETRON HCL 4 MG/2 ML VIAL IVP PRN (19:30)
[2016-12-18 21:26] VITALS: BP 121/64
[2016-12-18] MEDS ORDERED: ZOLPIDEM TARTRATE 5 MG TABLET PO PRN ×2 (22:45→23:00)
[2016-12-18] MEDS ORDERED: INSULIN ASPART 100 UNITS/ML SQ PRN ×2 (23:00→23:15)
[2016-12-18] MEDS ORDERED: OxyCODONE HCL/ACETAMINOPHEN 5-325 MG TABLET PO PRN (23:00)
[2016-12-18] MEDS ORDERED: GLUCAGON,HUMAN RECOMBINANT 1 MG VIAL IM PRN (23:00)
[2016-12-18] MEDS ORDERED: HYDROCODONE/ACETAMINOPHEN 5-325 MG TABLET PO PRN ×2 (23:00)
[2016-12-18] MEDS ORDERED: PHENYTOIN SODIUM 100 MG ER CAPSULE PO SCH (23:08)
[2016-12-18] MEDS ORDERED: DEXTROSE 50%-WATER 25 GM/50 ML SYG IVP PRN (23:15)
[2016-12-18 23:31] VITALS: BP 157/62
[2016-12-19 04:26] VITALS: BP 141/63
[2016-12-19 08:01] VITALS: BP 140/74
[2016-12-19] MEDS: GABAPENTIN 400 MG CAPSULE PO SCH ×2 (08:32→12:55)
[2016-12-19] MEDS ORDERED: METOPROLOL TARTRATE 25 MG TABLET PO SCH (09:00)
[2016-12-19] MEDS ORDERED: DULoxetine HCL 30 MG CAPSULE PO SCH (09:00)
[2016-12-19] MEDS ORDERED: TICAGRELOR 90 MG TABLET PO SCH (09:00)
[2016-12-19] MEDS ORDERED: TOPIRAMATE 25 MG TABLET PO SCH (09:00)
[2016-12-19] MEDS ORDERED: NICOTINE 14 MG/24 HOUR PATCH TD SCH (09:00)
[2016-12-19] MEDS ORDERED: LANSOPRAZOLE 30 MG SOLUBLE TABLET PO SCH (09:00)
[2016-12-19] MEDS ORDERED: ROSUVASTATIN CALCIUM 20 MG TABLET PO SCH (09:00)
[2016-12-19] MEDS ORDERED: ASPIRIN 81 MG CHEWABLE TABLET PO SCH (09:00)
[2016-12-19] MEDS ORDERED: ENOXAPARIN SODIUM 40 MG/0.4 ML PF SYRINGE SQ SCH ×2 (09:00)
[2016-12-19 11:31] VITALS: BP 118/74
[2016-12-19] MEDS ORDERED: TraZODone HCL 100 MG TABLET PO SCH (21:00)
[2016-12-20 07:43] LABS: GLUCOSE COMMENT 1 Received Meds; GLUCOSE,POINT OF CARE 208 MG/DL (70-110)
== END 2016-12-19 14:00 | disposition left against medical advice (07) | DRG 313 ==
LOC: EMS 15:59 → 5N 19:30
PROVIDERS: ADMIT Internal Medicine; ATTEND Internal Medicine
DX: R07.89 Other chest pain (principal); I25.10 Atherosclerotic heart disease of native coronary artery without angina pectoris; I10 Essential (primary) hypertension; F10.21 Alcohol dependence, in remission; F17.200 Nicotine dependence, unspecified, uncomplicated; E11.9 Type 2 diabetes mellitus without complications; G40.909 Epilepsy, unspecified, not intractable, without status epilepticus; H54.8 Legal blindness, as defined in USA; Z53.21 Procedure and treatment not carried out due to patient leaving prior to being seen by health care provider; E78.5 Hyperlipidemia, unspecified; G47.00 Insomnia, unspecified; M25.512 Pain in left shoulder; Z86.73 Personal history of transient ischemic attack (TIA), and cerebral infarction without residual deficits; Z95.5 Presence of coronary angioplasty implant and graft; Z99.3 Dependence on wheelchair; Z88.1 Allergy status to other antibiotic agents; Z88.8 Allergy status to other drugs, medicaments and biological substances
CPT/HCPCS: 82962; 85379; 87081; 93005; 99285; J1650

== ENCOUNTER 2016-12-30 17:08 | Emergency (ER) | payer MEDICARE, OTHER ==
[~2016-12-30] VITALS: Ht 167.6 cm; Wt 88.6 kg
[~2016-12-30 17:08] MED LIST changes: +ALBU2TAB42 PO; -BACL10TA PO; -BENA20 PO; -BENA20TA3 PO; -DSS100 PO; +HYDR-309 PO; +METO25 PO; +ROSU20 PO; +SIME80 PO
[2016-12-30 17:47] LABS: GLUCOSE,POINT OF CARE 100 MG/DL (70-110)
[2016-12-30] MEDS ORDERED: LIDOCAINE HCL 5% TRANSDERMAL PATCH TD ONE (18:45)
[2016-12-30] MEDS ORDERED: DiphenhydrAMINE HCL 25 MG CAPSULE PO ONE (18:45)
[2016-12-30 19:55] VITALS: BP 135/75
[2016-12-30] MEDS ORDERED: CYCLOBENZAPRINE HCL 10 MG TABLET PO ONE (20:00)
== END 2016-12-30 20:15 | disposition home or self-care (01) ==
LOC: EMS 17:10
DX: M54.9 Dorsalgia, unspecified (principal); M79.1 Myalgia; M54.2 Cervicalgia; M25.512 Pain in left shoulder; M25.511 Pain in right shoulder; G89.29 Other chronic pain; I25.10 Atherosclerotic heart disease of native coronary artery without angina pectoris; I10 Essential (primary) hypertension; I25.2 Old myocardial infarction; E11.9 Type 2 diabetes mellitus without complications; F17.210 Nicotine dependence, cigarettes, uncomplicated; Z86.73 Personal history of transient ischemic attack (TIA), and cerebral infarction without residual deficits; Z88.8 Allergy status to other drugs, medicaments and biological substances; Z88.1 Allergy status to other antibiotic agents; Z79.82 Long term (current) use of aspirin
CPT/HCPCS: 82962; 99284

== ENCOUNTER 2017-02-04 14:21 | Emergency (ER) | payer MEDICARE, OTHER ==
[~2017-02-04] VITALS: Ht 167.6 cm; Wt 82.7 kg
[~2017-02-04 14:21] MED LIST changes: -SIME80 PO
[2017-02-04 14:37] LABS: GLUCOSE,POINT OF CARE 76 MG/DL (70-110)
[2017-02-04 15:37] LABS: BASOPHILS % (AUTO) 0.5 % (0.0-2.0); EOSINOPHILS % (AUTO) 1.3 % (1.0-6.0); HEMATOCRIT 36.6 % (36-46); HEMOGLOBIN 12.3 g/dL (12.0-16.0); LYMPHOCYTES # (AUTO) 2.4 K/uL (1.0-4.8); LYMPHOCYTES % (AUTO) 44.1 % (22.0-44.0); MEAN CORPUSCULAR HEMOGLOBIN 27.9 pg (26.0-34.0); MEAN CORPUSCULAR HGB CONC 33.4 G/dL (31.0-37.0); MEAN CORPUSCULAR VOLUME 83 fL (80-100); MONOCYTES # (AUTO) 0.5 K/uL (0.1-1.0); MONOCYTES % (AUTO) 8.7 % (2.0-9.0); NEUTROPHILS # (AUTO) 2.5 K/uL (1.8-7.7); NEUTROPHILS % (AUTO) 45.4 % (40.0-70.0); PLATELET COUNT (AUTO) 202 K/uL (150-450); RED BLOOD CELL COUNT(AUTO) 4.39 MIL/uL (4.00-5.20); RED CELL DISTRIBUTION WIDTH 16.1 % (11.5-14.5); WHITE BLOOD COUNT (AUTO) 5.5 K/uL (4.5-11.0)
[2017-02-04 15:51] LABS: ANION GAP 10 mmol/L (8-16); CALCIUM, TOTAL 8.7 mg/dL (8.8-10.5); CARBON DIOXIDE 26 mmol/L (22-29); CHLORIDE 103 mmol/L (98-107); CREATININE 0.68 mg/dL (0.60-1.30); GLOMERULAR FILTR. RATE CALC > 60 mL/min (>60); POTASSIUM 4.5 mmol/L (3.5-5.1); SODIUM SERUM 139 mmol/L (136-145); UREA NITROGEN, BLOOD 20 mg/dL (7-18)
[2017-02-04 15:53] LABS: PROTHROMBIN TIME 10.5 SEC (9.4-11.6)
[2017-02-04 15:57] LABS: B-TYPE NATRIURETIC PEPTIDE 22 pg/mL (0-100)
[2017-02-04 16:03] LABS: ALANINE AMINOTRANSFERASE 27 U/L (12-78); ALBUMIN 3.7 g/dL (3.4-5.0); ASPARTATE AMINOTRANSFERASE 25 U/L (15-37); BILIRUBIN,TOTAL 0.2 mg/dL (0.1-1.0); CREATINE KINASE, TOTAL 36 U/L (26-192); TOTAL PROTEIN, SERUM 7.5 g/dL (6.4-8.2)
[2017-02-04 16:25] LABS: APPEARANCE,URINE CLEAR (CLEAR); GLUCOSE, URINE (UA) NEGATIVE (NEGATIVE); KETONES,URINE NEGATIVE (NEGATIVE); LEUKOCYTE ESTERASE ,URINE NEGATIVE (NEGATIVE); OCCULT BLOOD,URINE NEGATIVE (NEGATIVE); PH,URINE 6.5 (5.0-8.0); PROTEIN,URINE NEGATIVE (NEGATIVE)
[2017-02-04 16:35] LABS: ADD UA MICROSCOPIC NO
[2017-02-04 17:43] VITALS: BP 112/72
== END 2017-02-04 18:06 | disposition home or self-care (01) ==
LOC: EMS 14:22
DX: E11.9 Type 2 diabetes mellitus without complications (principal); I10 Essential (primary) hypertension; M79.641 Pain in right hand; M79.642 Pain in left hand; I25.10 Atherosclerotic heart disease of native coronary artery without angina pectoris; I25.2 Old myocardial infarction; F17.210 Nicotine dependence, cigarettes, uncomplicated; Z86.73 Personal history of transient ischemic attack (TIA), and cerebral infarction without residual deficits; Z79.82 Long term (current) use of aspirin; Z88.1 Allergy status to other antibiotic agents; Z88.8 Allergy status to other drugs, medicaments and biological substances
CPT/HCPCS: 51701; 82962; 87040; 93005; 99285

== ENCOUNTER 2017-02-06 11:20 | Emergency (ER) | payer MEDICARE, OTHER ==
[~2017-02-06] VITALS: Ht 167.6 cm; Wt 88.6 kg
[2017-02-06 11:32] LABS: GLUCOSE,POINT OF CARE 117 MG/DL (70-110)
[2017-02-06 11:54] VITALS: BP 134/64
[2017-02-06] MEDS ORDERED: GABAPENTIN 400 MG CAPSULE PO ONE (12:00)
== END 2017-02-06 12:19 | disposition home or self-care (01) ==
LOC: EMS 11:22
DX: G62.9 Polyneuropathy, unspecified (principal); I10 Essential (primary) hypertension; I25.10 Atherosclerotic heart disease of native coronary artery without angina pectoris; I25.2 Old myocardial infarction; E11.9 Type 2 diabetes mellitus without complications; F17.210 Nicotine dependence, cigarettes, uncomplicated; Z86.73 Personal history of transient ischemic attack (TIA), and cerebral infarction without residual deficits; Z88.1 Allergy status to other antibiotic agents; Z88.8 Allergy status to other drugs, medicaments and biological substances
CPT/HCPCS: 82962; 99283

== ENCOUNTER 2017-02-09 18:42 | Emergency (ER) | payer MEDICARE, OTHER ==
[~2017-02-09] VITALS: Ht 167.6 cm; Wt 86.4 kg
[2017-02-09 20:15] LABS: GLUCOSE,POINT OF CARE 86 MG/DL (70-110)
[2017-02-09] MEDS ORDERED: IBUPROFEN 400 MG TABLET PO ONE (22:30)
[2017-02-09 23:07] VITALS: BP 133/73
== END 2017-02-09 23:22 | disposition home or self-care (01) ==
LOC: EMS 18:51
DX: S93.402A Sprain of unspecified ligament of left ankle, initial encounter (principal); E11.40 Type 2 diabetes mellitus with diabetic neuropathy, unspecified; I10 Essential (primary) hypertension; I25.2 Old myocardial infarction; I25.10 Atherosclerotic heart disease of native coronary artery without angina pectoris; F17.210 Nicotine dependence, cigarettes, uncomplicated; Z88.1 Allergy status to other antibiotic agents; Z88.8 Allergy status to other drugs, medicaments and biological substances; X58.XXXA Exposure to other specified factors, initial encounter; Y93.89 Activity, other specified; Y92.89 Other specified places as the place of occurrence of the external cause; Y99.8 Other external cause status
CPT/HCPCS: 82962; 99284

== ENCOUNTER 2017-02-14 09:48 | Emergency (ER) | payer MEDICARE, OTHER ==
[~2017-02-14] VITALS: Ht 167.6 cm; Wt 84.1 kg
[2017-02-14 12:36] LABS: BASOPHILS # (AUTO) 0.02 K/uL (0.00-0.20); BASOPHILS % (AUTO) 0.4 % (0.0-2.0); EOSINOPHILS # (AUTO) 0.09 K/uL (0.00-0.70); EOSINOPHILS % (AUTO) 1.61 % (1.0-6.0); HEMATOCRIT 35.6 % (36-46); HEMOGLOBIN 11.7 g/dL (12.0-16.0); LYMPHOCYTES # (AUTO) 2.4 K/uL (1.0-4.8); LYMPHOCYTES % (AUTO) 41.2 % (22.0-44.0); MEAN CORPUSCULAR HEMOGLOBIN 27.4 pg (26.0-34.0); MEAN CORPUSCULAR VOLUME 83 fL (80-100); MONOCYTES # (AUTO) 0.5 K/uL (0.1-1.0); MONOCYTES % (AUTO) 8.3 % (2.0-9.0); NEUTROPHILS # (AUTO) 2.8 K/uL (1.8-7.7); NEUTROPHILS % (AUTO) 48.5 % (40.0-70.0); PLATELET COUNT (AUTO) 200 K/uL (150-450); RED BLOOD CELL COUNT(AUTO) 4.29 MIL/uL (4.00-5.20); RED CELL DISTRIBUTION WIDTH 17.1 % (11.5-14.5); WHITE BLOOD COUNT (AUTO) 5.8 K/uL (4.5-11.0)
[2017-02-14 12:46] LABS: ANION GAP 10 mmol/L (8-16); CALCIUM, TOTAL 8.5 mg/dL (8.8-10.5); CARBON DIOXIDE 25 mmol/L (22-29); CHLORIDE 106 mmol/L (98-107); CREATININE 0.75 mg/dL (0.60-1.30); GLOMERULAR FILTR. RATE CALC > 60 mL/min (>60); POTASSIUM 3.7 mmol/L (3.5-5.1); SODIUM SERUM 141 mmol/L (136-145); UREA NITROGEN, BLOOD 15 mg/dL (7-18)
[2017-02-14 12:47] LABS: PROTHROMBIN TIME 10.4 SEC (9.4-11.6)
[2017-02-14 12:51] LABS: ALANINE AMINOTRANSFERASE 21 U/L (12-78); ALBUMIN 3.4 g/dL (3.4-5.0); ASPARTATE AMINOTRANSFERASE 17 U/L (15-37); CREATINE KINASE, TOTAL 47 U/L (26-192)
[2017-02-14] MEDS ORDERED: PHENYTOIN SODIUM 500 MG in SODIUM CHLORIDE 0.9% 100 ML IV ONE (13:00)
[2017-02-14 13:03] LABS: BILIRUBIN,TOTAL 0.1 mg/dL (0.1-1.0)
[2017-02-14 13:15] LABS: APPEARANCE,URINE CLEAR (CLEAR); GLUCOSE, URINE (UA) NEGATIVE (NEGATIVE); KETONES,URINE NEGATIVE (NEGATIVE); LEUKOCYTE ESTERASE ,URINE NEGATIVE (NEGATIVE); OCCULT BLOOD,URINE NEGATIVE (NEGATIVE); PROTEIN,URINE NEGATIVE (NEGATIVE)
[2017-02-14 13:17] LABS: ADD UA MICROSCOPIC NO
[2017-02-14 15:00] VITALS: BP 131/86
[2017-02-14 20:34] LABS: GLUCOSE,POINT OF CARE 72 MG/DL (70-110)
== END 2017-02-14 15:13 | disposition home or self-care (01) ==
LOC: EMS 09:51
DX: G40.909 Epilepsy, unspecified, not intractable, without status epilepticus (principal); M79.643 Pain in unspecified hand; M79.673 Pain in unspecified foot; G89.29 Other chronic pain; E11.9 Type 2 diabetes mellitus without complications; I10 Essential (primary) hypertension; I25.10 Atherosclerotic heart disease of native coronary artery without angina pectoris; I25.2 Old myocardial infarction; F17.210 Nicotine dependence, cigarettes, uncomplicated; Z86.73 Personal history of transient ischemic attack (TIA), and cerebral infarction without residual deficits; Z88.1 Allergy status to other antibiotic agents; Z88.8 Allergy status to other drugs, medicaments and biological substances; Z79.82 Long term (current) use of aspirin
CPT/HCPCS: 36415; 80053; 80185; 81003; 82550; 82962; 84484; 85025; 85610; 85730; 93005; 96365; 99285; J1165; J7050

== ENCOUNTER 2017-02-17 19:15 | Emergency (ER) | payer MEDICARE, OTHER ==
[~2017-02-17] VITALS: Ht 167.6 cm; Wt 84.1 kg
[2017-02-17 19:42] LABS: GLUCOSE,POINT OF CARE 110 MG/DL (70-110)
[2017-02-17 20:02] VITALS: BP 128/72
[2017-02-17 20:37] LABS: GLUCOSE,POINT OF CARE 113 MG/DL (70-110)
== END 2017-02-17 21:03 | disposition home or self-care (01) ==
LOC: EMS 19:16
DX: E11.649 Type 2 diabetes mellitus with hypoglycemia without coma (principal); I25.10 Atherosclerotic heart disease of native coronary artery without angina pectoris; J44.9 Chronic obstructive pulmonary disease, unspecified; F17.210 Nicotine dependence, cigarettes, uncomplicated; Z88.0 Allergy status to penicillin; Z88.1 Allergy status to other antibiotic agents; Z88.8 Allergy status to other drugs, medicaments and biological substances
CPT/HCPCS: 82962; 99283

== ENCOUNTER 2017-03-13 00:16 | Emergency (ER) | payer MEDICARE, OTHER ==
[~2017-03-13] VITALS: Ht 167.6 cm; Wt 104.5 kg
[2017-03-13 00:37] LABS: GLUCOSE,POINT OF CARE 105 MG/DL (70-110)
[2017-03-13] MEDS ORDERED: MORPHINE SULFATE 10 MG/ML SYRINGE IM ONE (03:15)
[2017-03-13] MEDS ORDERED: PROMETHAZINE HCL 25 MG/ML VIAL IM ONE (03:15)
[2017-03-13 06:15] VITALS: BP 148/62
== END 2017-03-13 06:49 | disposition home or self-care (01) ==
LOC: EMS 00:20
DX: G62.9 Polyneuropathy, unspecified (principal); B86 Scabies; E11.9 Type 2 diabetes mellitus without complications; I25.10 Atherosclerotic heart disease of native coronary artery without angina pectoris; J44.9 Chronic obstructive pulmonary disease, unspecified; F17.210 Nicotine dependence, cigarettes, uncomplicated; Z88.1 Allergy status to other antibiotic agents; Z88.8 Allergy status to other drugs, medicaments and biological substances
CPT/HCPCS: 73130; 82962; 96372; 99284; J2270; J2550

== ENCOUNTER 2017-04-19 09:16 | Emergency (ER) | payer MEDICARE, OTHER ==
[~2017-04-19] VITALS: Ht 167.6 cm; Wt 88.6 kg
[2017-04-19 09:37] LABS: GLUCOSE,POINT OF CARE 135 MG/DL (70-110)
[2017-04-19 10:22] VITALS: BP 123/67
== END 2017-04-19 10:36 | disposition home or self-care (01) ==
LOC: EMS 09:19
DX: K64.4 Residual hemorrhoidal skin tags (principal); G47.00 Insomnia, unspecified; I25.2 Old myocardial infarction; I25.10 Atherosclerotic heart disease of native coronary artery without angina pectoris; J44.9 Chronic obstructive pulmonary disease, unspecified; E11.9 Type 2 diabetes mellitus without complications; F17.210 Nicotine dependence, cigarettes, uncomplicated; Z88.0 Allergy status to penicillin; Z88.1 Allergy status to other antibiotic agents; Z88.8 Allergy status to other drugs, medicaments and biological substances
CPT/HCPCS: 82962; 99283

== ENCOUNTER 2017-05-24 12:24 | Emergency (ER) | payer MEDICARE, OTHER ==
[~2017-05-24] VITALS: Ht 170.2 cm; Wt 86.4 kg
[2017-05-24 12:53] LABS: GLUCOSE,POINT OF CARE 99 MG/DL (70-110)
[2017-05-24] MEDS ORDERED: ALBU2TAB42 PO (13:03)
[2017-05-24] MEDS ORDERED: ROSU20 PO (13:03)
[2017-05-24] MEDS ORDERED: METO25 PO (13:03)
[2017-05-24] MEDS ORDERED: TRAZ-147 PO (13:03)
[2017-05-24] MEDS ORDERED: PHENY100 PO (13:03)
[2017-05-24] MEDS ORDERED: HYDR-4061 PO (13:03)
[2017-05-24] MEDS ORDERED: GLIP10 PO (13:03)
[2017-05-24] MEDS ORDERED: TOPI25 PO (13:03)
[2017-05-24] MEDS ORDERED: GABA-533 PO (13:03)
[2017-05-24] MEDS ORDERED: ASPI81 PO (13:03)
[2017-05-24] MEDS ORDERED: DULO30CA2 PO (13:03)
[2017-05-24] MEDS ORDERED: TICA90TA PO (13:03)
[2017-05-24] MEDS ORDERED: METHOCARBAMOL 500 MG TABLET PO ONE (13:45)
[2017-05-24] MEDS ORDERED: KETOROLAC TROMETHAMINE 60 MG/2 ML VIAL IM ONE (13:45)
[2017-05-24] MEDS ORDERED: DiphenhydrAMINE HCL 25 MG CAPSULE PO ONE ×2 (14:15)
[2017-05-24 15:20] VITALS: BP 121/73
== END 2017-05-24 15:50 | disposition home or self-care (01) ==
LOC: EMS 12:26
DX: S39.012A Strain of muscle, fascia and tendon of lower back, initial encounter (principal); S16.1XXA Strain of muscle, fascia and tendon at neck level, initial encounter; I25.10 Atherosclerotic heart disease of native coronary artery without angina pectoris; J44.9 Chronic obstructive pulmonary disease, unspecified; E11.9 Type 2 diabetes mellitus without complications; F17.210 Nicotine dependence, cigarettes, uncomplicated; I25.2 Old myocardial infarction; Z79.82 Long term (current) use of aspirin; Z88.0 Allergy status to penicillin; Z88.1 Allergy status to other antibiotic agents; Z88.8 Allergy status to other drugs, medicaments and biological substances; W01.0XXA Fall on same level from slipping, tripping and stumbling without subsequent striking against object, initial encounter; Y93.89 Activity, other specified; Y93.E1 Activity, personal bathing and showering; Y99.8 Other external cause status
CPT/HCPCS: 82962; 96372; 99283; J1885

== ENCOUNTER 2017-06-16 11:50 | Emergency (ER) | payer MEDICARE, MEDICAID ==
[~2017-06-16] VITALS: Ht 165.1 cm; Wt 88.6 kg
[~2017-06-16 11:50] MED LIST changes: +GLIP10 PO; -GLIP10TA9 PO; -HYDR-309 PO; +HYDR-4061 PO
[2017-06-16] MEDS ORDERED: SODIUM CHLORIDE 0.9% 1,000 ML IV ONE (12:30)
[2017-06-16 13:55] LABS: BASOPHILS % (AUTO) 0.8 % (0.0-2.0); EOSINOPHILS % (AUTO) 5.9 % (1.0-6.0); HEMATOCRIT 39.9 % (36-46); HEMOGLOBIN 13.2 g/dL (12.0-16.0); LYMPHOCYTES # (AUTO) 1.9 K/uL (1.0-4.8); LYMPHOCYTES % (AUTO) 33.2 % (22.0-44.0); MEAN CORPUSCULAR HEMOGLOBIN 27.7 pg (26.0-34.0); MEAN CORPUSCULAR HGB CONC 33.1 G/dL (31.0-37.0); MEAN CORPUSCULAR VOLUME 84 fL (80-100); MONOCYTES # (AUTO) 0.6 K/uL (0.1-1.0); MONOCYTES % (AUTO) 10.2 % (2.0-9.0); NEUTROPHILS # (AUTO) 2.9 K/uL (1.8-7.7); NEUTROPHILS % (AUTO) 49.9 % (40.0-70.0); PLATELET COUNT (AUTO) 227 K/uL (150-450); RED BLOOD CELL COUNT(AUTO) 4.76 MIL/uL (4.00-5.20); RED CELL DISTRIBUTION WIDTH 15.8 % (11.5-14.5)
[2017-06-16 14:12] LABS: ANION GAP 11 mmol/L (8-16); CALCIUM, TOTAL 9.3 mg/dL (8.8-10.5); CARBON DIOXIDE 25 mmol/L (22-29); CHLORIDE 105 mmol/L (98-107); CREATININE 0.69 mg/dL (0.60-1.30); GLOMERULAR FILTR. RATE CALC > 60 mL/min (>60); GLUCOSE,RANDOM 98 mg/dL (70-110); POTASSIUM 3.3 mmol/L (3.5-5.1); SODIUM SERUM 141 mmol/L (136-145); UREA NITROGEN, BLOOD 22 mg/dL (7-18)
[2017-06-16 14:18] LABS: ALANINE AMINOTRANSFERASE 20 U/L (12-78); ALBUMIN 3.7 g/dL (3.4-5.0); ALKALINE PHOSPHATASE 105 U/L (46-116); ASPARTATE AMINOTRANSFERASE 20 U/L (15-37); BILIRUBIN,TOTAL 0.2 mg/dL (0.1-1.0); LIPASE 167 U/L (73-393); TOTAL PROTEIN, SERUM 7.9 g/dL (6.4-8.2)
[2017-06-16] MEDS ORDERED: POTASSIUM CHLORIDE 20 MEQ ER TABLET PO ONE (14:45)
[2017-06-16 15:22] VITALS: BP 149/73
[2017-06-16 15:28] LABS: BILIRUBIN,URINE NEGATIVE (NEGATIVE); GLUCOSE, URINE (UA) NEGATIVE (NEGATIVE); KETONES,URINE NEGATIVE (NEGATIVE); LEUKOCYTE ESTERASE ,URINE NEGATIVE (NEGATIVE); NITRATE,URINE NEGATIVE (NEGATIVE); OCCULT BLOOD,URINE NEGATIVE (NEGATIVE); PH,URINE 6.5 (5.0-8.0); PROTEIN,URINE NEGATIVE (NEGATIVE)
[2017-06-16 16:01] LABS: APPEARANCE,URINE CLEAR (CLEAR)
[2017-06-16 16:12] LABS: AMORPHOUS SEDIMENT,UR Moderate /LPF (None Seen); BACTERIA,URINE Few /HPF (None Seen); RBC,URINE None Seen /HPF (0-2); SQUAMOUS EPITHELIAL CELL,UR Few /LPF (None Seen); WBC,URINE 0-2 /HPF (0-5)
== END 2017-06-16 16:52 | disposition home or self-care (01) ==
LOC: EMS 11:53
DX: R42 Dizziness and giddiness (principal); F41.9 Anxiety disorder, unspecified; B86 Scabies; Z79.84 Long term (current) use of oral hypoglycemic drugs; Z79.82 Long term (current) use of aspirin; Z88.0 Allergy status to penicillin; Z88.1 Allergy status to other antibiotic agents; Z88.8 Allergy status to other drugs, medicaments and biological substances
CPT/HCPCS: 70450; 82948; 82962; 93005; 96360; 96361; 99285

== ENCOUNTER 2017-06-30 11:51 | Emergency (ER) | payer MEDICARE, MEDICAID ==
[~2017-06-30] VITALS: Ht 167.6 cm; Wt 88.6 kg
[2017-06-30] MEDS ORDERED: SODIUM CHLORIDE 0.9% 1,000 ML IV ONE (13:45)
[2017-06-30] MEDS ORDERED: ONDANSETRON HCL 4 MG/2 ML VIAL IVP ONE (13:45)
[2017-06-30] MEDS ORDERED: HYDROmorphone 2 MG/ML SYRINGE IVP ONE (13:45)
[2017-06-30 14:13] LABS: BASOPHILS % (AUTO) 0.9 % (0.0-2.0); EOSINOPHILS % (AUTO) 3.1 % (1.0-6.0); HEMATOCRIT 39.6 % (36-46); HEMOGLOBIN 13.2 g/dL (12.0-16.0); LYMPHOCYTES # (AUTO) 2.6 K/uL (1.0-4.8); LYMPHOCYTES % (AUTO) 45.7 % (22.0-44.0); MEAN CORPUSCULAR HEMOGLOBIN 27.9 pg (26.0-34.0); MEAN CORPUSCULAR HGB CONC 33.4 G/dL (31.0-37.0); MEAN CORPUSCULAR VOLUME 83 fL (80-100); MONOCYTES # (AUTO) 0.4 K/uL (0.1-1.0); MONOCYTES % (AUTO) 6.6 % (2.0-9.0); NEUTROPHILS # (AUTO) 2.5 K/uL (1.8-7.7); NEUTROPHILS % (AUTO) 43.7 % (40.0-70.0); PLATELET COUNT (AUTO) 245 K/uL (150-450); RED BLOOD CELL COUNT(AUTO) 4.74 MIL/uL (4.00-5.20); RED CELL DISTRIBUTION WIDTH 15.7 % (11.5-14.5)
[2017-06-30 14:18] LABS: ANION GAP 11 mmol/L (8-16); CALCIUM, TOTAL 9.4 mg/dL (8.8-10.5); CARBON DIOXIDE 24 mmol/L (22-29); CHLORIDE 103 mmol/L (98-107); CREATININE 0.59 mg/dL (0.60-1.30); GLOMERULAR FILTR. RATE CALC > 60 mL/min (>60); GLUCOSE,RANDOM 102 mg/dL (70-110); POTASSIUM 4.3 mmol/L (3.5-5.1); SODIUM SERUM 138 mmol/L (136-145); UREA NITROGEN, BLOOD 18 mg/dL (7-18)
[2017-06-30 14:24] LABS: ALANINE AMINOTRANSFERASE 19 U/L (12-78); ALBUMIN 3.7 g/dL (3.4-5.0); ALKALINE PHOSPHATASE 105 U/L (46-116); ASPARTATE AMINOTRANSFERASE 18 U/L (15-37); BILIRUBIN,TOTAL 0.2 mg/dL (0.1-1.0); CREATINE KINASE, TOTAL 60 U/L (26-192); LIPASE 374 U/L (73-393); TOTAL PROTEIN, SERUM 7.7 g/dL (6.4-8.2)
[2017-06-30 14:40] LABS: B-TYPE NATRIURETIC PEPTIDE 30 pg/mL (0-100)
[2017-06-30 15:23] LABS: PROTHROMBIN TIME 10.1 SEC (9.4-11.6)
[2017-06-30 17:30] LABS: BILIRUBIN,URINE NEGATIVE (NEGATIVE); GLUCOSE, URINE (UA) NEGATIVE (NEGATIVE); KETONES,URINE NEGATIVE (NEGATIVE); LEUKOCYTE ESTERASE ,URINE NEGATIVE (NEGATIVE); NITRATE,URINE NEGATIVE (NEGATIVE); OCCULT BLOOD,URINE NEGATIVE (NEGATIVE); PROTEIN,URINE NEGATIVE (NEGATIVE); UROBILINOGEN,URINE 0.2 mg/dL (<=1.0)
[2017-06-30 17:53] LABS: APPEARANCE,URINE CLEAR (CLEAR)
[2017-06-30 18:00] VITALS: BP 138/98
== END 2017-06-30 18:45 | disposition home or self-care (01) ==
LOC: EMS 11:53
DX: R10.9 Unspecified abdominal pain (principal); J44.9 Chronic obstructive pulmonary disease, unspecified; F32.9 Major depressive disorder, single episode, unspecified; E11.9 Type 2 diabetes mellitus without complications; I25.10 Atherosclerotic heart disease of native coronary artery without angina pectoris; I25.2 Old myocardial infarction; Z88.0 Allergy status to penicillin; Z79.82 Long term (current) use of aspirin; Z79.84 Long term (current) use of oral hypoglycemic drugs; Z86.73 Personal history of transient ischemic attack (TIA), and cerebral infarction without residual deficits; Z88.1 Allergy status to other antibiotic agents
CPT/HCPCS: 51701; 93005; 99285; J1170; J2405; J7030

== ENCOUNTER 2017-07-18 21:24 | Emergency (ER) | payer MEDICARE, OTHER ==
[~2017-07-18] VITALS: Ht 167.6 cm; Wt 88.6 kg
[~2017-07-18 21:24] MED LIST changes: -ALBU2TAB42 PO; -ASPI81 PO; -GABA-533 PO; -HYDR-4061 PO; -TICA90TA PO
[2017-07-18 22:02] LABS: GLUCOSE,POINT OF CARE 149 MG/DL (70-110)
[2017-07-18 22:33] LABS: EOSINOPHILS % (AUTO) 5.5 % (1.0-6.0); HEMATOCRIT 38.9 % (36-46); HEMOGLOBIN 12.8 g/dL (12.0-16.0); LYMPHOCYTES # (AUTO) 1.9 K/uL (1.0-4.8); LYMPHOCYTES % (AUTO) 42.5 % (22.0-44.0); MEAN CORPUSCULAR HEMOGLOBIN 27.6 pg (26.0-34.0); MEAN CORPUSCULAR HGB CONC 32.8 G/dL (31.0-37.0); MEAN CORPUSCULAR VOLUME 84 fL (80-100); MONOCYTES # (AUTO) 0.5 K/uL (0.1-1.0); MONOCYTES % (AUTO) 10.1 % (2.0-9.0); NEUTROPHILS # (AUTO) 1.9 K/uL (1.8-7.7); NEUTROPHILS % (AUTO) 40.9 % (40.0-70.0); PLATELET COUNT (AUTO) 215 K/uL (150-450); RED BLOOD CELL COUNT(AUTO) 4.62 MIL/uL (4.00-5.20)
[2017-07-18 22:45] LABS: ANION GAP 9 mmol/L (8-16); CARBON DIOXIDE 27 mmol/L (22-29); CHLORIDE 103 mmol/L (98-107); CREATININE 0.56 mg/dL (0.60-1.30); GLOMERULAR FILTR. RATE CALC > 60 mL/min (>60); GLUCOSE,RANDOM 123 mg/dL (70-110); POTASSIUM 3.2 mmol/L (3.5-5.1); SODIUM SERUM 139 mmol/L (136-145); UREA NITROGEN, BLOOD 15 mg/dL (7-18)
[2017-07-18 22:51] LABS: ALANINE AMINOTRANSFERASE 16 U/L (12-78); ALBUMIN 3.5 g/dL (3.4-5.0); ALKALINE PHOSPHATASE 96 U/L (46-116); ASPARTATE AMINOTRANSFERASE 19 U/L (15-37); LIPASE 119 U/L (73-393); TOTAL PROTEIN, SERUM 7.5 g/dL (6.4-8.2)
[2017-07-18 23:09] LABS: BILIRUBIN,TOTAL 0.1 mg/dL (0.1-1.0)
[2017-07-18] MEDS ORDERED: NITROGLYCERIN 2% (1 GM=INCH) PACKET TP ONE (23:15)
[2017-07-18] MEDS ORDERED: POTASSIUM CHLORIDE 20 MEQ ER TABLET PO ONE (23:15)
[2017-07-19 03:35] VITALS: BP 140/75
== END 2017-07-19 04:08 | disposition home or self-care (01) ==
LOC: EMS 21:26
DX: R07.9 Chest pain, unspecified (principal); G81.94 Hemiplegia, unspecified affecting left nondominant side; I25.10 Atherosclerotic heart disease of native coronary artery without angina pectoris; J44.9 Chronic obstructive pulmonary disease, unspecified; E11.9 Type 2 diabetes mellitus without complications; I25.2 Old myocardial infarction; F17.210 Nicotine dependence, cigarettes, uncomplicated; Z88.8 Allergy status to other drugs, medicaments and biological substances; Z86.73 Personal history of transient ischemic attack (TIA), and cerebral infarction without residual deficits; Z88.0 Allergy status to penicillin; Z88.1 Allergy status to other antibiotic agents
CPT/HCPCS: 82962; 93005; 99285

== ENCOUNTER 2017-07-20 09:09 | Emergency (ER) | payer MEDICARE, OTHER ==
[~2017-07-20] VITALS: Ht 167.6 cm; Wt 84.0 kg
[2017-07-20 10:00] LABS: BASOPHILS % (AUTO) 1.2 % (0.0-2.0); EOSINOPHILS % (AUTO) 4.3 % (1.0-6.0); HEMATOCRIT 42.9 % (36-46); HEMOGLOBIN 14.3 g/dL (12.0-16.0); LYMPHOCYTES # (AUTO) 2.3 K/uL (1.0-4.8); MEAN CORPUSCULAR HEMOGLOBIN 27.8 pg (26.0-34.0); MEAN CORPUSCULAR HGB CONC 33.3 G/dL (31.0-37.0); MEAN CORPUSCULAR VOLUME 84 fL (80-100); MONOCYTES # (AUTO) 0.5 K/uL (0.1-1.0); MONOCYTES % (AUTO) 8.1 % (2.0-9.0); NEUTROPHILS # (AUTO) 2.7 K/uL (1.8-7.7); NEUTROPHILS % (AUTO) 46.4 % (40.0-70.0); PLATELET COUNT (AUTO) 220 K/uL (150-450); RED BLOOD CELL COUNT(AUTO) 5.13 MIL/uL (4.00-5.20); RED CELL DISTRIBUTION WIDTH 15.8 % (11.5-14.5)
[2017-07-20] MEDS ORDERED: MORPHINE SULFATE 4 MG/ML SYRINGE IVP ONE (10:00)
[2017-07-20] MEDS ORDERED: NITROGLYCERIN 0.4 MG SUBLINGUAL TABLET #25 SL ONE (10:00)
[2017-07-20] MEDS ORDERED: ONDANSETRON HCL 4 MG/2 ML VIAL IVP ONE (10:00)
[2017-07-20 10:11] LABS: ANION GAP 12 mmol/L (8-16); CALCIUM, TOTAL 9.7 mg/dL (8.8-10.5); CARBON DIOXIDE 28 mmol/L (22-29); CHLORIDE 100 mmol/L (98-107); CREATININE 0.66 mg/dL (0.60-1.30); GLOMERULAR FILTR. RATE CALC > 60 mL/min (>60); GLUCOSE,RANDOM 121 mg/dL (70-110); POTASSIUM 3.5 mmol/L (3.5-5.1); SODIUM SERUM 140 mmol/L (136-145); UREA NITROGEN, BLOOD 10 mg/dL (7-18)
[2017-07-20 10:13] LABS: ALANINE AMINOTRANSFERASE 20 U/L (12-78); ALKALINE PHOSPHATASE 104 U/L (46-116); ASPARTATE AMINOTRANSFERASE 20 U/L (15-37); BILIRUBIN,TOTAL 0.2 mg/dL (0.1-1.0); CREATINE KINASE, TOTAL 62 U/L (26-192); LIPASE 115 U/L (73-393); TOTAL PROTEIN, SERUM 8.2 g/dL (6.4-8.2)
[2017-07-20] MEDS ORDERED: PERMETHRIN 5% 60 GM CREAM TP ONE (10:15)
[2017-07-20 10:28] LABS: B-TYPE NATRIURETIC PEPTIDE 160 pg/mL (0-100)
[2017-07-20 11:21] LABS: PHENYTOIN (DILANTIN) 3.7 mcg/mL (10.0-20.0)
[2017-07-20 14:32] VITALS: BP 139/72
== END 2017-07-20 14:50 | disposition home or self-care (01) ==
LOC: EMS 09:19
DX: R07.89 Other chest pain (principal); R06.02 Shortness of breath; G89.29 Other chronic pain; F99 Mental disorder, not otherwise specified; B86 Scabies; G81.94 Hemiplegia, unspecified affecting left nondominant side; E66.9 Obesity, unspecified; R10.10 Upper abdominal pain, unspecified; I25.10 Atherosclerotic heart disease of native coronary artery without angina pectoris; J44.9 Chronic obstructive pulmonary disease, unspecified; I25.2 Old myocardial infarction; E11.9 Type 2 diabetes mellitus without complications; F17.210 Nicotine dependence, cigarettes, uncomplicated; Z76.0 Encounter for issue of repeat prescription; Z68.29 Body mass index [BMI] 29.0-29.9, adult; Z86.73 Personal history of transient ischemic attack (TIA), and cerebral infarction without residual deficits; Z88.0 Allergy status to penicillin; Z88.1 Allergy status to other antibiotic agents
CPT/HCPCS: 36415; 71045; 80053; 80185; 82550; 82962; 83690; 83880; 84484; 85025; 85610; 85730; 93005; 96374; 96375; 99285; J2270; J2405

== ENCOUNTER 2017-07-24 07:49 | Emergency (ER) | payer MEDICARE, OTHER ==
[~2017-07-24] VITALS: Ht 162.6 cm; Wt 72.7 kg
[2017-07-24] MEDS ORDERED: DiphenhydrAMINE HCL 50 MG CAPSULE PO ONE (10:15)
[2017-07-24 10:29] LABS: BASOPHILS % (AUTO) 0.9 % (0.0-2.0); EOSINOPHILS % (AUTO) 4.3 % (1.0-6.0); HEMATOCRIT 41.4 % (36-46); HEMOGLOBIN 13.9 g/dL (12.0-16.0); LYMPHOCYTES # (AUTO) 1.4 K/uL (1.0-4.8); LYMPHOCYTES % (AUTO) 28.4 % (22.0-44.0); MEAN CORPUSCULAR HEMOGLOBIN 28.1 pg (26.0-34.0); MEAN CORPUSCULAR HGB CONC 33.7 G/dL (31.0-37.0); MEAN CORPUSCULAR VOLUME 84 fL (80-100); MONOCYTES # (AUTO) 0.5 K/uL (0.1-1.0); NEUTROPHILS # (AUTO) 2.9 K/uL (1.8-7.7); NEUTROPHILS % (AUTO) 56.4 % (40.0-70.0); PLATELET COUNT (AUTO) 214 K/uL (150-450); RED BLOOD CELL COUNT(AUTO) 4.96 MIL/uL (4.00-5.20); RED CELL DISTRIBUTION WIDTH 15.9 % (11.5-14.5)
[2017-07-24 10:38] LABS: ANION GAP 9 mmol/L (8-16); CALCIUM, TOTAL 9.4 mg/dL (8.8-10.5); CARBON DIOXIDE 26 mmol/L (22-29); CHLORIDE 101 mmol/L (98-107); CREATININE 0.63 mg/dL (0.60-1.30); GLOMERULAR FILTR. RATE CALC > 60 mL/min (>60); GLUCOSE,RANDOM 107 mg/dL (70-110); POTASSIUM 3.2 mmol/L (3.5-5.1); SODIUM SERUM 136 mmol/L (136-145); UREA NITROGEN, BLOOD 12 mg/dL (7-18)
[2017-07-24 10:44] LABS: ALANINE AMINOTRANSFERASE 15 U/L (12-78); ALBUMIN 3.8 g/dL (3.4-5.0); ALKALINE PHOSPHATASE 106 U/L (46-116); ASPARTATE AMINOTRANSFERASE 20 U/L (15-37); BILIRUBIN,TOTAL 0.2 mg/dL (0.1-1.0); TOTAL PROTEIN, SERUM 8.2 g/dL (6.4-8.2)
[2017-07-24] MEDS ORDERED: POTASSIUM CHLORIDE 20 MEQ ER TABLET PO ONE (11:15)
[2017-07-24 12:07] VITALS: BP 144/72
== END 2017-07-24 12:41 | disposition home or self-care (01) ==
LOC: EMS 07:52
DX: R07.89 Other chest pain (principal); F99 Mental disorder, not otherwise specified; B86 Scabies; G89.29 Other chronic pain; I25.10 Atherosclerotic heart disease of native coronary artery without angina pectoris; J44.9 Chronic obstructive pulmonary disease, unspecified; E11.9 Type 2 diabetes mellitus without complications; F32.9 Major depressive disorder, single episode, unspecified; I25.2 Old myocardial infarction; F17.210 Nicotine dependence, cigarettes, uncomplicated; Z86.73 Personal history of transient ischemic attack (TIA), and cerebral infarction without residual deficits; Z88.1 Allergy status to other antibiotic agents; Z88.0 Allergy status to penicillin
CPT/HCPCS: 93005; 99285

== ENCOUNTER 2017-09-05 15:23 | Emergency (ER) | payer MEDICARE, OTHER ==
[~2017-09-05] VITALS: Ht 167.6 cm; Wt 84.1 kg
[2017-09-05 15:42] LABS: GLUCOSE,POINT OF CARE 131 MG/DL (70-110)
[2017-09-05 16:03] LABS: EOSINOPHILS % (AUTO) 4.2 % (1.0-6.0); HEMATOCRIT 40.3 % (36-46); HEMOGLOBIN 13.3 g/dL (12.0-16.0); LYMPHOCYTES # (AUTO) 1.6 K/uL (1.0-4.8); LYMPHOCYTES % (AUTO) 37.5 % (22.0-44.0); MEAN CORPUSCULAR HEMOGLOBIN 26.9 pg (26.0-34.0); MEAN CORPUSCULAR VOLUME 81 fL (80-100); MONOCYTES # (AUTO) 0.4 K/uL (0.1-1.0); MONOCYTES % (AUTO) 9.5 % (2.0-9.0); NEUTROPHILS % (AUTO) 47.8 % (40.0-70.0); PLATELET COUNT (AUTO) 278 K/uL (150-450); RED BLOOD CELL COUNT(AUTO) 4.95 MIL/uL (4.00-5.20); RED CELL DISTRIBUTION WIDTH 16.3 % (11.5-14.5)
[2017-09-05 16:14] LABS: ANION GAP 7 mmol/L (8-16); CALCIUM, TOTAL 9.2 mg/dL (8.8-10.5); CARBON DIOXIDE 30 mmol/L (22-29); CHLORIDE 100 mmol/L (98-107); CREATININE 0.68 mg/dL (0.60-1.30); GLOMERULAR FILTR. RATE CALC > 60 mL/min (>60); GLUCOSE,RANDOM 113 mg/dL (70-110); POTASSIUM 3.2 mmol/L (3.5-5.1); SODIUM SERUM 137 mmol/L (136-145); UREA NITROGEN, BLOOD 15 mg/dL (7-18)
[2017-09-05 16:15] LABS: PROTHROMBIN TIME 10.1 SEC (9.4-11.6)
[2017-09-05 16:18] LABS: ALANINE AMINOTRANSFERASE 16 U/L (12-78); ALBUMIN 3.8 g/dL (3.4-5.0); ALKALINE PHOSPHATASE 103 U/L (46-116); ASPARTATE AMINOTRANSFERASE 16 U/L (15-37); BILIRUBIN,TOTAL 0.3 mg/dL (0.1-1.0)
[2017-09-05 16:28] LABS: PHENYTOIN (DILANTIN) < 0.5 mcg/mL (10.0-20.0)
[2017-09-05] MEDS ORDERED: POTASSIUM CHLORIDE 20 MEQ ER TABLET PO ONE (18:15)
[2017-09-05 18:53] LABS: AMPHET/METH SCREEN,URINE NEGATIVE (NEGATIVE); BARBITURATE SCREEN, URINE NEGATIVE (NEGATIVE); BENZODIAZEPINES SCREEN,URINE NEGATIVE (NEGATIVE); CANNABINOID SCREEN,URINE NEGATIVE (NEGATIVE); COCAINE SCREEN,URINE NEGATIVE (NEGATIVE); METHADONE SCREEN, URINE NEGATIVE (NEGATIVE); OPIATE SCREEN,URINE NEGATIVE (NEGATIVE)
[2017-09-05 18:55] LABS: PHENCYCLIDINE SCREEN,URINE NEGATIVE (NEGATIVE)
[2017-09-05 18:57] LABS: APPEARANCE,URINE CLEAR (CLEAR); BILIRUBIN,URINE NEGATIVE (NEGATIVE); GLUCOSE, URINE (UA) NEGATIVE (NEGATIVE); KETONES,URINE NEGATIVE (NEGATIVE); LEUKOCYTE ESTERASE ,URINE NEGATIVE (NEGATIVE); NITRATE,URINE NEGATIVE (NEGATIVE); OCCULT BLOOD,URINE NEGATIVE (NEGATIVE); PROTEIN,URINE TRACE (NEGATIVE)
[2017-09-05] MEDS ORDERED: PERMETHRIN 5% 60 GM CREAM TP ONE (20:30)
[2017-09-05 21:05] VITALS: BP 150/84
== END 2017-09-05 21:25 | disposition home or self-care (01) ==
LOC: EMS 15:24
DX: R51 Headache (principal); B86 Scabies; F20.9 Schizophrenia, unspecified; J44.9 Chronic obstructive pulmonary disease, unspecified; E11.9 Type 2 diabetes mellitus without complications; I10 Essential (primary) hypertension; I25.10 Atherosclerotic heart disease of native coronary artery without angina pectoris; I25.2 Old myocardial infarction; F31.9 Bipolar disorder, unspecified; F17.210 Nicotine dependence, cigarettes, uncomplicated; Z88.0 Allergy status to penicillin; Z88.1 Allergy status to other antibiotic agents; Z88.8 Allergy status to other drugs, medicaments and biological substances
CPT/HCPCS: 36415; 70450; 80053; 80185; 80307; 81003; 82962; 85025; 85610; 85730; 99285; 99406; G0480

== ENCOUNTER 2017-09-20 20:40 | Emergency (ER) | payer MEDICARE, OTHER ==
[~2017-09-20] VITALS: Ht 167.6 cm; Wt 81.4 kg
[2017-09-20 21:18] LABS: GLUCOSE,POINT OF CARE 102 MG/DL (70-110)
[2017-09-20 21:47] LABS: BASOPHILS % (AUTO) 0.6 % (0.0-2.0); EOSINOPHILS % (AUTO) 2.8 % (1.0-6.0); HEMATOCRIT 35.6 % (36-46); MEAN CORPUSCULAR HEMOGLOBIN 27.5 pg (26.0-34.0); MEAN CORPUSCULAR HGB CONC 33.8 G/dL (31.0-37.0); MEAN CORPUSCULAR VOLUME 81 fL (80-100); MONOCYTES # (AUTO) 0.5 K/uL (0.1-1.0); MONOCYTES % (AUTO) 8.2 % (2.0-9.0); NEUTROPHILS # (AUTO) 3.5 K/uL (1.8-7.7); NEUTROPHILS % (AUTO) 56.4 % (40.0-70.0); PLATELET COUNT (AUTO) 239 K/uL (150-450); RED BLOOD CELL COUNT(AUTO) 4.38 MIL/uL (4.00-5.20); RED CELL DISTRIBUTION WIDTH 16.6 % (11.5-14.5)
[2017-09-20 21:59] LABS: ANION GAP 7 mmol/L (8-16); CALCIUM, TOTAL 8.6 mg/dL (8.8-10.5); CARBON DIOXIDE 26 mmol/L (22-29); CHLORIDE 105 mmol/L (98-107); GLOMERULAR FILTR. RATE CALC > 60 mL/min (>60); GLUCOSE,RANDOM 102 mg/dL (70-110); POTASSIUM 3.9 mmol/L (3.5-5.1); SODIUM SERUM 138 mmol/L (136-145); UREA NITROGEN, BLOOD 16 mg/dL (7-18)
[2017-09-20 22:05] LABS: ALANINE AMINOTRANSFERASE 17 U/L (12-78); ALBUMIN 3.4 g/dL (3.4-5.0); ALKALINE PHOSPHATASE 90 U/L (46-116); ASPARTATE AMINOTRANSFERASE 16 U/L (15-37); BILIRUBIN,TOTAL 0.3 mg/dL (0.1-1.0); TOTAL PROTEIN, SERUM 7.5 g/dL (6.4-8.2)
[2017-09-20 22:16] LABS: PHENYTOIN (DILANTIN) < 0.5 mcg/mL (10.0-20.0)
[2017-09-20 22:45] LABS: AMPHET/METH SCREEN,URINE NEGATIVE (NEGATIVE); BARBITURATE SCREEN, URINE NEGATIVE (NEGATIVE); BENZODIAZEPINES SCREEN,URINE NEGATIVE (NEGATIVE); CANNABINOID SCREEN,URINE NEGATIVE (NEGATIVE); COCAINE SCREEN,URINE NEGATIVE (NEGATIVE); METHADONE SCREEN, URINE NEGATIVE (NEGATIVE); OPIATE SCREEN,URINE NEGATIVE (NEGATIVE)
[2017-09-20] MEDS ORDERED: PHENYTOIN SODIUM 1,000 MG in SODIUM CHLORIDE 0.9% 150 ML IV ONE (22:45)
[2017-09-20 22:47] LABS: PHENCYCLIDINE SCREEN,URINE NEGATIVE (NEGATIVE)
[2017-09-20 22:58] VITALS: BP 128/72
[2017-09-20 23:25] LABS: APPEARANCE,URINE CLEAR (CLEAR)
[2017-09-20 23:26] LABS: BILIRUBIN,URINE NEGATIVE (NEGATIVE); GLUCOSE, URINE (UA) NEGATIVE (NEGATIVE); KETONES,URINE NEGATIVE (NEGATIVE); LEUKOCYTE ESTERASE ,URINE NEGATIVE (NEGATIVE); NITRATE,URINE NEGATIVE (NEGATIVE); OCCULT BLOOD,URINE TRACE (NEGATIVE); PROTEIN,URINE NEGATIVE (NEGATIVE); UROBILINOGEN,URINE 0.2 mg/dL (<=1.0)
[2017-09-20 23:29] LABS: BACTERIA,URINE Rare /HPF (None Seen); RBC,URINE 0-2 /HPF (0-2); SQUAMOUS EPITHELIAL CELL,UR Few /LPF (None Seen); WBC,URINE 0-2 /HPF (0-5)
== END 2017-09-20 23:36 | disposition home or self-care (01) ==
LOC: EMS 20:42
DX: G62.9 Polyneuropathy, unspecified (principal); R79.1 Abnormal coagulation profile; I25.10 Atherosclerotic heart disease of native coronary artery without angina pectoris; J44.9 Chronic obstructive pulmonary disease, unspecified; E11.9 Type 2 diabetes mellitus without complications; I10 Essential (primary) hypertension; I25.2 Old myocardial infarction; Z88.1 Allergy status to other antibiotic agents; Z88.8 Allergy status to other drugs, medicaments and biological substances; Z88.0 Allergy status to penicillin; Z86.73 Personal history of transient ischemic attack (TIA), and cerebral infarction without residual deficits
CPT/HCPCS: 36415; 80053; 80185; 80307; 81001; 82962; 85025; 96365; 99284; J1165; J7050

== ENCOUNTER 2017-09-28 04:06 | Emergency (ER) | payer MEDICARE, OTHER ==
[~2017-09-28] VITALS: Ht 167.6 cm; Wt 97.7 kg
[2017-09-28] MEDS ORDERED: KETOROLAC TROMETHAMINE 30 MG/ML VIAL IM ONE (04:45)
[2017-09-28 05:31] VITALS: BP 141/89
== END 2017-09-28 05:35 | disposition home or self-care (01) ==
LOC: EMS 04:07
DX: S29.012A Strain of muscle and tendon of back wall of thorax, initial encounter (principal); I10 Essential (primary) hypertension; I25.2 Old myocardial infarction; I25.10 Atherosclerotic heart disease of native coronary artery without angina pectoris; E11.9 Type 2 diabetes mellitus without complications; F17.210 Nicotine dependence, cigarettes, uncomplicated; Z88.0 Allergy status to penicillin; Z88.1 Allergy status to other antibiotic agents; Z88.8 Allergy status to other drugs, medicaments and biological substances; W07.XXXA Fall from chair, initial encounter; Y93.89 Activity, other specified; Y92.89 Other specified places as the place of occurrence of the external cause; Y99.8 Other external cause status
CPT/HCPCS: 96372; 99283; J1885

== ENCOUNTER 2017-10-08 04:39 | Emergency (ER) | payer MEDICARE, OTHER ==
[~2017-10-08] VITALS: Ht 167.6 cm; Wt 79.5 kg
[2017-10-08] MEDS ORDERED: OxyCODONE HCL/ACETAMINOPHEN 5-325 MG TABLET PO ONE (07:30)
[2017-10-08 09:23] VITALS: BP 142/73
== END 2017-10-08 10:11 | disposition home or self-care (01) ==
LOC: EMS 04:42
DX: M25.552 Pain in left hip (principal); E11.9 Type 2 diabetes mellitus without complications; F20.9 Schizophrenia, unspecified; F32.9 Major depressive disorder, single episode, unspecified; I10 Essential (primary) hypertension; I25.10 Atherosclerotic heart disease of native coronary artery without angina pectoris; J44.9 Chronic obstructive pulmonary disease, unspecified; F17.210 Nicotine dependence, cigarettes, uncomplicated; R21 Rash and other nonspecific skin eruption; Z79.84 Long term (current) use of oral hypoglycemic drugs; Z86.73 Personal history of transient ischemic attack (TIA), and cerebral infarction without residual deficits; Z88.0 Allergy status to penicillin; Z99.3 Dependence on wheelchair; Z79.899 Other long term (current) drug therapy; Z88.1 Allergy status to other antibiotic agents
CPT/HCPCS: 73521; 99284

== ENCOUNTER 2017-10-27 07:07 | Emergency (ER) | payer MEDICARE, OTHER ==
[~2017-10-27] VITALS: Ht 167.6 cm; Wt 78.0 kg
[2017-10-27 07:23] LABS: GLUCOSE,POINT OF CARE 106 MG/DL (70-110)
[2017-10-27] MEDS ORDERED: KETOROLAC TROMETHAMINE 30 MG/ML VIAL IVP ONE (07:30)
[2017-10-27] MEDS ORDERED: LORazepam 2 MG/ML VIAL IVP ONE (07:30)
[2017-10-27] MEDS ORDERED: METOPROLOL TARTRATE 50 MG TABLET PO ONE (11:00)
[2017-10-27 13:15] VITALS: BP 188/104
== END 2017-10-27 16:46 | disposition home or self-care (01) ==
LOC: EMS 07:07
DX: S00.93XA Contusion of unspecified part of head, initial encounter (principal); S10.93XA Contusion of unspecified part of neck, initial encounter; F41.9 Anxiety disorder, unspecified; I10 Essential (primary) hypertension; E11.9 Type 2 diabetes mellitus without complications; I25.2 Old myocardial infarction; I25.10 Atherosclerotic heart disease of native coronary artery without angina pectoris; J44.9 Chronic obstructive pulmonary disease, unspecified; F17.210 Nicotine dependence, cigarettes, uncomplicated; Z88.1 Allergy status to other antibiotic agents; Z88.8 Allergy status to other drugs, medicaments and biological substances; W18.39XA Other fall on same level, initial encounter; Y93.89 Activity, other specified; Y92.89 Other specified places as the place of occurrence of the external cause; Y99.8 Other external cause status
CPT/HCPCS: 70450; 72125; 82962; 96374; 96375; 99284; J1885; J2060

== ENCOUNTER 2017-11-06 15:58 | Inpatient (IN) | payer MEDICARE, MEDICAID ==
[~2017-11-06] VITALS: Ht 167.6 cm; Wt 74.0 kg
[~2017-11-06 15:58] MED LIST changes: -TRAZ-147 PO; +TRAZ-220 PO
[2017-11-06 16:57] VITALS: BP 151/77
[2017-11-06 17:00] VITALS: BP 150/90
[2017-11-06 17:09] LABS: GLUCOMETER DEV NAME(LOC) BV2N3; GLUCOSE,POINT OF CARE 128 MG/DL (70-110)
[2017-11-06] MEDS ORDERED: PNEUMOCOCCAL VACCINE POLYVALENT 0.5 ML VIAL [PPSV23] IM ONE (17:15)
[2017-11-06 19:45] VITALS: BP_SYST 160; BP_DIAS 110; BP_DIAS 120
[2017-11-06] MEDS ORDERED: CloNIDine HCL 0.1 MG TABLET PO ONE (19:45)
[2017-11-06] MEDS ORDERED: ALBUTEROL SULFATE HFA 90 MCG/PUFF 8 GM INHALER IH PRN (19:45)
[2017-11-06] MEDS ORDERED: IBUPROFEN 800 MG TABLET PO PRN (20:00)
[2017-11-06] MEDS ORDERED: DENTURE ADHESIVE 68 GM CREAM DT PRN (20:00)
[2017-11-06 20:25] VITALS: BP 150/90
[2017-11-06] MEDS ORDERED: PERMETHRIN 1% 60 ML LOTION TP ONE (20:30)
[2017-11-07 03:08] VITALS: BP 128/76
[2017-11-07] MEDS: PHENYTOIN SODIUM 100 MG ER CAPSULE PO SCH ×2 (03:47→20:41)
[2017-11-07] MEDS: PERMETHRIN 5% 60 GM CREAM TP ONE ×2 (03:51→09:24)
[2017-11-07] MEDS: LORazepam 2 MG TABLET PO PRN (03:54)
[2017-11-07] MEDS: ROSUVASTATIN CALCIUM 20 MG TABLET PO SCH ×2 (03:54→22:31)
[2017-11-07 06:40] LABS: GLUCOMETER DEV NAME(LOC) BV2N3; GLUCOSE,POINT OF CARE 100 MG/DL (70-110)
[2017-11-07] MEDS: GlipiZIDE 10 MG TABLET PO SCH (06:44)
[2017-11-07] MEDS ORDERED: NICOTINE 14 MG/24 HOUR PATCH TD SCH (09:00)
[2017-11-07 09:05] VITALS: BP 129/79
[2017-11-07] MEDS: METOPROLOL TARTRATE 25 MG TABLET PO SCH ×2 (09:06→16:43)
[2017-11-07] MEDS: TOPIRAMATE 25 MG TABLET PO SCH ×2 (09:06→16:43)
[2017-11-07] MEDS: DULoxetine HCL 30 MG CAPSULE PO SCH ×2 (10:29→16:43)
[2017-11-07] MEDS ORDERED: DOCUSATE SODIUM 100 MG CAPSULE PO PRN (10:45)
[2017-11-07] MEDS ORDERED: PETROLATUM,WHITE 71 GM JELLY TP PRN (10:45)
[2017-11-07] MEDS ORDERED: MAGNESIUM HYDROXIDE SUSPENSION 30 ML UDCUP PO PRN (10:45)
[2017-11-07] MEDS ORDERED: ONDANSETRON HCL 4 MG TABLET PO PRN (10:45)
[2017-11-07] MEDS ORDERED: ALBUTEROL SULFATE HFA 90 MCG/PUFF 8 GM INHALER IH PRN (10:45)
[2017-11-07] MEDS ORDERED: POTASSIUM CHLORIDE 20 MEQ ER TABLET PO ONE (12:30)
[2017-11-07 16:10] VITALS: BP 163/85
[2017-11-07 16:29] LABS: GLUCOMETER DEV NAME(LOC) BV2N3; GLUCOSE,POINT OF CARE 112 MG/DL (70-110)
[2017-11-07 18:04] VITALS: BP 152/81
[2017-11-07] MEDS: CALAMINE/ZINC OXIDE 177 ML LOTION TP PRN (19:06)
[2017-11-07 19:09] VITALS: BP 124/82
[2017-11-07] MEDS: MAG HYDROX/AL HYDROX/SIMETH ES 30 ML SUSPENSION UDCUP PO PRN (20:38)
[2017-11-07] MEDS: ZOLPIDEM TARTRATE 10 MG TABLET PO PRN (21:31)
[2017-11-08 05:22] VITALS: BP 120/82
[2017-11-08] MEDS: LORazepam 2 MG TABLET PO PRN (05:23)
[2017-11-08] MEDS: IBUPROFEN 400 MG TABLET PO PRN (05:25)
[2017-11-08] MEDS: GlipiZIDE 10 MG TABLET PO SCH (06:33)
[2017-11-08 06:40] LABS: GLUCOMETER DEV NAME(LOC) BV2N3; GLUCOSE,POINT OF CARE 92 MG/DL (70-110)
[2017-11-08 08:50] VITALS: BP 139/80
[2017-11-08 09:15] LABS: ALANINE AMINOTRANSFERASE 13 U/L (12-78); ALBUMIN 3.3 g/dL (3.4-5.0); ALKALINE PHOSPHATASE 76 U/L (46-116); ANION GAP 9 mmol/L (8-16); ASPARTATE AMINOTRANSFERASE 12 U/L (15-37); BILIRUBIN,TOTAL 0.2 mg/dL (0.1-1.0); CALCIUM, TOTAL 8.5 mg/dL (8.8-10.5); CARBON DIOXIDE 25 mmol/L (22-29); CHLORIDE 105 mmol/L (98-107); CHOL/HDL RATIO 4.2 (3.9-5.7); CHOLESTEROL 184 mg/dL (131-200); CREATININE 0.61 mg/dL (0.60-1.30); FREE T4 (FREE THYROXINE) 0.76 ng/dL (0.76-1.46); GLOMERULAR FILTR. RATE CALC > 60 mL/min (>60); GLUCOSE,RANDOM 84 mg/dL (70-110); HDL CHOLESTEROL 44 mg/dL (40-60); LDL CHOL (CALC.) 107 mg/dL (0-130); PHENYTOIN (DILANTIN) 8.7 mcg/mL (10.0-20.0); POTASSIUM 4.2 mmol/L (3.5-5.1); SODIUM SERUM 139 mmol/L (136-145); THYROID STIMULATING HORMONE 0.87 uIU/mL (0.36-3.74); TOTAL PROTEIN, SERUM 7.1 g/dL (6.4-8.2); TRIGLYCERIDES 163 mg/dL (15-150); UREA NITROGEN, BLOOD 13 mg/dL (7-18)
[2017-11-08] MEDS: DULoxetine HCL 30 MG CAPSULE PO SCH ×2 (09:24→16:23)
[2017-11-08] MEDS: TOPIRAMATE 25 MG TABLET PO SCH ×2 (09:24→16:23)
[2017-11-08] MEDS: METOPROLOL TARTRATE 25 MG TABLET PO SCH ×2 (09:24→16:23)
[2017-11-08] MEDS: NICOTINE 14 MG/24 HOUR PATCH TD SCH (09:25)
[2017-11-08] MEDS: CALAMINE/ZINC OXIDE 177 ML LOTION TP PRN (10:21)
[2017-11-08 16:10] VITALS: BP 138/75
[2017-11-08 16:29] LABS: GLUCOMETER DEV NAME(LOC) BV2N3; GLUCOSE,POINT OF CARE 72 MG/DL (70-110)
[2017-11-08] MEDS: PHENYTOIN SODIUM 100 MG ER CAPSULE PO SCH (20:43)
[2017-11-08] MEDS: ROSUVASTATIN CALCIUM 20 MG TABLET PO SCH (20:43)
[2017-11-08 22:38] VITALS: BP 137/76
[2017-11-09 02:48] VITALS: BP 136/90
[2017-11-09 05:58] LABS: GLUCOMETER DEV NAME(LOC) 3EI B; GLUCOSE,POINT OF CARE 94 MG/DL (70-110)
[2017-11-09 06:34] LABS: BASOPHILS % (AUTO) 0.4 % (0.0-2.0); HEMATOCRIT 40.5 % (36-46); HEMOGLOBIN 13.5 g/dL (12.0-16.0); LYMPHOCYTES # (AUTO) 2.9 K/uL (1.0-4.8); LYMPHOCYTES % (AUTO) 48.4 % (22.0-44.0); MEAN CORPUSCULAR HGB CONC 33.2 G/dL (31.0-37.0); MEAN CORPUSCULAR VOLUME 81 fL (80-100); MONOCYTES # (AUTO) 0.4 K/uL (0.1-1.0); MONOCYTES % (AUTO) 7.4 % (2.0-9.0); NEUTROPHILS # (AUTO) 2.4 K/uL (1.8-7.7); NEUTROPHILS % (AUTO) 40.8 % (40.0-70.0); PLATELET COUNT (AUTO) 217 K/uL (150-450); RED BLOOD CELL COUNT(AUTO) 4.98 MIL/uL (4.00-5.20); RED CELL DISTRIBUTION WIDTH 16.8 % (11.5-14.5)
[2017-11-09 06:58] LABS: ALANINE AMINOTRANSFERASE 15 U/L (12-78); ALBUMIN 3.6 g/dL (3.4-5.0); ALKALINE PHOSPHATASE 82 U/L (46-116); ANION GAP 10 mmol/L (8-16); ASPARTATE AMINOTRANSFERASE 15 U/L (15-37); BILIRUBIN,TOTAL 0.2 mg/dL (0.1-1.0); CALCIUM, TOTAL 9.1 mg/dL (8.8-10.5); CARBON DIOXIDE 26 mmol/L (22-29); CHLORIDE 104 mmol/L (98-107); CREATININE 0.63 mg/dL (0.60-1.30); GLOMERULAR FILTR. RATE CALC > 60 mL/min (>60); GLUCOSE,RANDOM 93 mg/dL (70-110); POTASSIUM 4.7 mmol/L (3.5-5.1); SODIUM SERUM 140 mmol/L (136-145); TOTAL PROTEIN, SERUM 7.6 g/dL (6.4-8.2); UREA NITROGEN, BLOOD 17 mg/dL (7-18)
[2017-11-09] MEDS: ASPIRIN 81 MG CHEWABLE TABLET PO SCH (07:09)
[2017-11-09] MEDS: GlipiZIDE 10 MG TABLET PO SCH (07:09)
[2017-11-09 07:24] LABS: HEMOGLOBIN A1C 6.6 % (4.5-6.2)
[2017-11-09] MEDS: DULoxetine HCL 30 MG CAPSULE PO SCH ×2 (08:58→16:33)
[2017-11-09] MEDS: TOPIRAMATE 25 MG TABLET PO SCH ×2 (08:58→16:33)
[2017-11-09] MEDS: METOPROLOL TARTRATE 25 MG TABLET PO SCH ×2 (08:58→16:33)
[2017-11-09] MEDS: NICOTINE 14 MG/24 HOUR PATCH TD SCH (09:00)
[2017-11-09] MEDS: IBUPROFEN 400 MG TABLET PO PRN (13:35)
[2017-11-09 16:13] LABS: GLUCOMETER DEV NAME(LOC) 3EX 1; GLUCOSE,POINT OF CARE 246 MG/DL (70-110)
[2017-11-09 16:31] VITALS: BP_SYST 119; BP_SYST 139; BP_DIAS 78
[2017-11-09 16:38] LABS: GLUCOMETER DEV NAME(LOC) 3EX 1; GLUCOSE,POINT OF CARE 89 MG/DL (70-110)
[2017-11-09] MEDS: ZOLPIDEM TARTRATE 10 MG TABLET PO PRN (20:41)
[2017-11-09] MEDS: PHENYTOIN SODIUM 100 MG ER CAPSULE PO SCH (20:41)
[2017-11-09] MEDS: ROSUVASTATIN CALCIUM 20 MG TABLET PO SCH (20:41)
[2017-11-10 00:22] VITALS: BP 134/81
[2017-11-10] MEDS: LORazepam 2 MG TABLET PO PRN (00:49)
[2017-11-10 04:20] VITALS: BP 134/81
[2017-11-10] MEDS: IBUPROFEN 400 MG TABLET PO PRN ×2 (04:28→13:59)
[2017-11-10 05:39] LABS: GLUCOMETER DEV NAME(LOC) 3EI B; GLUCOSE,POINT OF CARE 94 MG/DL (70-110)
[2017-11-10] MEDS: GlipiZIDE 10 MG TABLET PO SCH (07:23)
[2017-11-10] MEDS: ASPIRIN 81 MG CHEWABLE TABLET PO SCH (08:34)
[2017-11-10] MEDS: TOPIRAMATE 25 MG TABLET PO SCH ×2 (08:34→16:07)
[2017-11-10] MEDS: METOPROLOL TARTRATE 25 MG TABLET PO SCH ×2 (08:34→16:08)
[2017-11-10] MEDS: DULoxetine HCL 30 MG CAPSULE PO SCH ×2 (08:34→16:07)
[2017-11-10] MEDS: NICOTINE 14 MG/24 HOUR PATCH TD SCH (08:34)
[2017-11-10 11:43] LABS: GLUCOMETER DEV NAME(LOC) 3EX 1; GLUCOSE,POINT OF CARE 162 MG/DL (70-110)
[2017-11-10 16:29] VITALS: BP 138/72
[2017-11-10 18:14] LABS: GLUCOMETER DEV NAME(LOC) 3EX 1; GLUCOSE,POINT OF CARE 152 MG/DL (70-110)
[2017-11-10] MEDS: ROSUVASTATIN CALCIUM 20 MG TABLET PO SCH (20:20)
[2017-11-10] MEDS: PHENYTOIN SODIUM 100 MG ER CAPSULE PO SCH (20:20)
[2017-11-11 00:30] VITALS: BP 146/88
[2017-11-11] MEDS: IBUPROFEN 400 MG TABLET PO PRN (00:37)
[2017-11-11] MEDS: CALAMINE/ZINC OXIDE 177 ML LOTION TP PRN (03:57)
[2017-11-11] MEDS: ACETAMINOPHEN 325 MG TABLET PO PRN (05:06)
[2017-11-11 05:44] LABS: GLUCOMETER DEV NAME(LOC) 3EI B; GLUCOSE,POINT OF CARE 101 MG/DL (70-110)
[2017-11-11] MEDS: ASPIRIN 81 MG CHEWABLE TABLET PO SCH (07:21)
[2017-11-11] MEDS: GlipiZIDE 10 MG TABLET PO SCH (07:21)
[2017-11-11] MEDS: TOPIRAMATE 25 MG TABLET PO SCH ×2 (08:54→16:49)
[2017-11-11] MEDS: DULoxetine HCL 30 MG CAPSULE PO SCH ×2 (08:55→16:49)
[2017-11-11] MEDS: NICOTINE 14 MG/24 HOUR PATCH TD SCH (08:55)
[2017-11-11] MEDS: METOPROLOL TARTRATE 25 MG TABLET PO SCH ×2 (08:55→16:49)
[2017-11-11 09:00] VITALS: BP 148/77
[2017-11-11] MEDS: LORazepam 2 MG TABLET PO PRN (10:58)
[2017-11-11 17:00] VITALS: BP 138/70
[2017-11-11] MEDS: PHENYTOIN SODIUM 100 MG ER CAPSULE PO SCH (20:14)
[2017-11-11] MEDS: ROSUVASTATIN CALCIUM 20 MG TABLET PO SCH (20:14)
[2017-11-12 00:15] VITALS: BP 142/86
[2017-11-12] MEDS: ZOLPIDEM TARTRATE 10 MG TABLET PO PRN (00:44)
[2017-11-12 05:50] LABS: GLUCOMETER DEV NAME(LOC) 3EI B; GLUCOSE,POINT OF CARE 73 MG/DL (70-110)
[2017-11-12] MEDS: GlipiZIDE 10 MG TABLET PO SCH (07:04)
[2017-11-12] MEDS: ASPIRIN 81 MG CHEWABLE TABLET PO SCH (07:04)
[2017-11-12] MEDS: DULoxetine HCL 30 MG CAPSULE PO SCH ×2 (07:58→16:31)
[2017-11-12] MEDS: METOPROLOL TARTRATE 25 MG TABLET PO SCH ×2 (07:58→16:31)
[2017-11-12] MEDS: NICOTINE 14 MG/24 HOUR PATCH TD SCH (07:59)
[2017-11-12] MEDS: TOPIRAMATE 25 MG TABLET PO SCH ×2 (08:00→16:31)
[2017-11-12] MEDS: IBUPROFEN 400 MG TABLET PO PRN (08:13)
[2017-11-12 08:14] VITALS: BP 134/77
[2017-11-12 08:26] VITALS: BP 134/77
[2017-11-12] MEDS: LORazepam 2 MG TABLET PO PRN (08:27)
[2017-11-12 09:14] VITALS: BP 134/81
[2017-11-12 16:57] VITALS: BP 125/75
[2017-11-12 17:08] LABS: GLUCOMETER DEV NAME(LOC) 3EX 1; GLUCOSE,POINT OF CARE 113 MG/DL (70-110)
[2017-11-12] MEDS: ROSUVASTATIN CALCIUM 20 MG TABLET PO SCH (20:43)
[2017-11-12] MEDS: PHENYTOIN SODIUM 100 MG ER CAPSULE PO SCH (20:44)
[2017-11-13 00:20] VITALS: BP 123/79
[2017-11-13 00:26] VITALS: BP 123/79
[2017-11-13] MEDS: IBUPROFEN 400 MG TABLET PO PRN (00:26)
[2017-11-13] MEDS: CALAMINE/ZINC OXIDE 177 ML LOTION TP PRN (01:23)
[2017-11-13] MEDS: ZOLPIDEM TARTRATE 10 MG TABLET PO PRN ×2 (01:23→21:29)
[2017-11-13 05:44] LABS: GLUCOMETER DEV NAME(LOC) 3EI B; GLUCOSE,POINT OF CARE 73 MG/DL (70-110)
[2017-11-13] MEDS: GlipiZIDE 10 MG TABLET PO SCH (07:29)
[2017-11-13] MEDS: ASPIRIN 81 MG CHEWABLE TABLET PO SCH (09:48)
[2017-11-13] MEDS: DULoxetine HCL 30 MG CAPSULE PO SCH ×2 (09:48→16:06)
[2017-11-13] MEDS: NICOTINE 14 MG/24 HOUR PATCH TD SCH (09:49)
[2017-11-13] MEDS: METOPROLOL TARTRATE 25 MG TABLET PO SCH ×2 (09:49→16:07)
[2017-11-13] MEDS: TOPIRAMATE 25 MG TABLET PO SCH ×2 (09:49→16:05)
[2017-11-13 11:19] LABS: GLUCOMETER DEV NAME(LOC) 3EX 1; GLUCOSE,POINT OF CARE 77 MG/DL (70-110)
[2017-11-13] MEDS: ACETAMINOPHEN 325 MG TABLET PO PRN (13:43)
[2017-11-13 15:00] VITALS: BP 124/73
[2017-11-13 16:19] LABS: GLUCOMETER DEV NAME(LOC) 3EX 1; GLUCOSE,POINT OF CARE 103 MG/DL (70-110)
[2017-11-13 17:25] VITALS: BP 134/78
[2017-11-13] MEDS: ROSUVASTATIN CALCIUM 20 MG TABLET PO SCH (20:08)
[2017-11-13] MEDS: PHENYTOIN SODIUM 100 MG ER CAPSULE PO SCH (20:08)
[2017-11-14] MEDS: IBUPROFEN 400 MG TABLET PO PRN ×2 (00:25→07:55)
[2017-11-14 00:34] VITALS: BP 137/74
[2017-11-14] MEDS: LORazepam 2 MG TABLET PO PRN ×2 (00:52→07:55)
[2017-11-14] MEDS: MAG HYDROX/AL HYDROX/SIMETH ES 30 ML SUSPENSION UDCUP PO PRN (03:16)
[2017-11-14 05:39] LABS: GLUCOMETER DEV NAME(LOC) 3EI B; GLUCOSE,POINT OF CARE 77 MG/DL (70-110)
[2017-11-14] MEDS: GlipiZIDE 10 MG TABLET PO SCH (07:05)
[2017-11-14] MEDS: ASPIRIN 81 MG CHEWABLE TABLET PO SCH (07:05)
[2017-11-14] MEDS: DULoxetine HCL 30 MG CAPSULE PO SCH ×2 (07:53→16:37)
[2017-11-14] MEDS: NICOTINE 14 MG/24 HOUR PATCH TD SCH (07:54)
[2017-11-14] MEDS: TOPIRAMATE 25 MG TABLET PO SCH ×2 (07:54→16:37)
[2017-11-14] MEDS: METOPROLOL TARTRATE 25 MG TABLET PO SCH ×2 (07:54→16:37)
[2017-11-14 08:01] VITALS: BP 144/80
[2017-11-14] MEDS ORDERED: ASPI-556 PO (14:27)
== END 2017-11-14 16:30 | disposition home health service (06) | DRG 885 ==
LOC: B2X 16:39 → 3EX 11-08 21:42
PROVIDERS: ADMIT Psychiatry & Neurology Child & Adolescent Psychiatry; ATTEND Psychiatry & Neurology Child & Adolescent Psychiatry
DX: F31.4 Bipolar disorder, current episode depressed, severe, without psychotic features (principal); G81.94 Hemiplegia, unspecified affecting left nondominant side; J44.9 Chronic obstructive pulmonary disease, unspecified; I25.10 Atherosclerotic heart disease of native coronary artery without angina pectoris; I10 Essential (primary) hypertension; E11.9 Type 2 diabetes mellitus without complications; B86 Scabies; E78.5 Hyperlipidemia, unspecified; F20.9 Schizophrenia, unspecified; F17.200 Nicotine dependence, unspecified, uncomplicated; F41.0 Panic disorder [episodic paroxysmal anxiety]; Z59.0 Homelessness; Z81.8 Family history of other mental and behavioral disorders; Z86.73 Personal history of transient ischemic attack (TIA), and cerebral infarction without residual deficits; Z99.3 Dependence on wheelchair
CPT/HCPCS: 83036; 84439; 84443; 87081; 90471; J3535

== ENCOUNTER 2017-11-06 21:00 | Emergency (ER) | payer MEDICARE, OTHER ==
[~2017-11-06] VITALS: Ht 167.6 cm; Wt 74.1 kg
[~2017-11-06 21:00] MED LIST changes: +TRAZ-147 PO; -TRAZ-220 PO
[2017-11-06 21:29] LABS: GLUCOSE,POINT OF CARE 131 MG/DL (70-110)
[2017-11-06 22:23] LABS: GLUCOSE,POINT OF CARE 107 MG/DL (70-110)
[2017-11-06] MEDS ORDERED: ONDANSETRON HCL 4 MG/2 ML VIAL IVP ONE (22:30)
[2017-11-06] MEDS ORDERED: MORPHINE SULFATE 4 MG/ML SYRINGE IVP ONE (22:30)
[2017-11-06 22:44] LABS: BASOPHILS % (AUTO) 0.7 % (0.0-2.0); EOSINOPHILS % (AUTO) 3.5 % (1.0-6.0); HEMATOCRIT 40.2 % (36-46); HEMOGLOBIN 13.3 g/dL (12.0-16.0); LYMPHOCYTES # (AUTO) 2.5 K/uL (1.0-4.8); MEAN CORPUSCULAR HEMOGLOBIN 26.9 pg (26.0-34.0); MEAN CORPUSCULAR VOLUME 82 fL (80-100); MONOCYTES # (AUTO) 0.5 K/uL (0.1-1.0); MONOCYTES % (AUTO) 8.5 % (2.0-9.0); NEUTROPHILS # (AUTO) 2.2 K/uL (1.8-7.7); NEUTROPHILS % (AUTO) 41.3 % (40.0-70.0); PLATELET COUNT (AUTO) 213 K/uL (150-450); RED BLOOD CELL COUNT(AUTO) 4.93 MIL/uL (4.00-5.20); RED CELL DISTRIBUTION WIDTH 16.9 % (11.5-14.5)
[2017-11-06] MEDS ORDERED: MORPHINE SULFATE 4 MG/ML SYRINGE IM ONE (22:45)
[2017-11-06] MEDS ORDERED: ONDANSETRON HCL 4 MG/2 ML VIAL IM ONE (22:45)
[2017-11-06 23:01] LABS: INR 0.9 (0.9-1.1); PROTHROMBIN TIME 9.9 SEC (9.4-11.6)
[2017-11-06 23:04] LABS: ANION GAP 10 mmol/L (8-16); CALCIUM, TOTAL 8.8 mg/dL (8.8-10.5); CARBON DIOXIDE 27 mmol/L (22-29); CHLORIDE 104 mmol/L (98-107); CREATININE 0.78 mg/dL (0.60-1.30); GLOMERULAR FILTR. RATE CALC > 60 mL/min (>60); GLUCOSE,RANDOM 120 mg/dL (70-110); POTASSIUM 3.1 mmol/L (3.5-5.1); SODIUM SERUM 141 mmol/L (136-145); UREA NITROGEN, BLOOD 22 mg/dL (7-18)
[2017-11-06 23:10] LABS: ALANINE AMINOTRANSFERASE 15 U/L (12-78); ALBUMIN 3.5 g/dL (3.4-5.0); ALKALINE PHOSPHATASE 95 U/L (46-116); ASPARTATE AMINOTRANSFERASE 12 U/L (15-37); BILIRUBIN,TOTAL 0.2 mg/dL (0.1-1.0); CREATINE KINASE, TOTAL 58 U/L (26-192); LIPASE 251 U/L (73-393); TOTAL PROTEIN, SERUM 7.5 g/dL (6.4-8.2)
[2017-11-07] MEDS ORDERED: POTASSIUM CHLORIDE 20 MEQ ER TABLET PO ONE (00:45)
[2017-11-07 01:00] VITALS: BP 135/81
[2017-11-07] MEDS ORDERED: ACETAMINOPHEN 325 MG TABLET PO ONE (01:30)
== END 2017-11-07 02:22 | disposition home or self-care (01) ==
LOC: EMS 21:03
DX: M25.552 Pain in left hip (principal); M79.605 Pain in left leg; I10 Essential (primary) hypertension; I25.10 Atherosclerotic heart disease of native coronary artery without angina pectoris; E11.9 Type 2 diabetes mellitus without complications; I25.2 Old myocardial infarction; F17.210 Nicotine dependence, cigarettes, uncomplicated; Z88.1 Allergy status to other antibiotic agents; Z88.0 Allergy status to penicillin
CPT/HCPCS: 36415; 73503; 80053; 82550; 82948; 82962; 83690; 84484; 85025; 85610; 93005; 96372; 99285; J2270; J2405

== ENCOUNTER 2017-12-21 08:06 | Emergency (ER) | payer MEDICARE, OTHER ==
[~2017-12-21] VITALS: Ht 167.6 cm; Wt 77.3 kg
[~2017-12-21 08:06] MED LIST changes: +ASPI-556 PO; -TRAZ-147 PO
[2017-12-21] MEDS ORDERED: IBUP-2071 PO (08:24)
[2017-12-21] MEDS ORDERED: GABA-531 PO (08:24)
[2017-12-21 09:38] LABS: GLUCOSE,POINT OF CARE 94 MG/DL (70-110)
[2017-12-21] MEDS ORDERED: KETOROLAC TROMETHAMINE 30 MG/ML VIAL IVP ONE (09:45)
[2017-12-21] MEDS ORDERED: ASPIRIN 81 MG CHEWABLE TABLET PO ONE (09:45)
[2017-12-21 11:53] LABS: BASOPHILS % (AUTO) 0.5 % (0.0-2.0); EOSINOPHILS % (AUTO) 1.7 % (1.0-6.0); HEMATOCRIT 41.1 % (36-46); HEMOGLOBIN 13.6 g/dL (12.0-16.0); LYMPHOCYTES % (AUTO) 42.8 % (22.0-44.0); MEAN CORPUSCULAR HEMOGLOBIN 27.5 pg (26.0-34.0); MEAN CORPUSCULAR HGB CONC 33.1 G/dL (31.0-37.0); MEAN CORPUSCULAR VOLUME 83 fL (80-100); MONOCYTES # (AUTO) 0.4 K/uL (0.1-1.0); NEUTROPHILS # (AUTO) 2.2 K/uL (1.8-7.7); PLATELET COUNT (AUTO) 227 K/uL (150-450); RED BLOOD CELL COUNT(AUTO) 4.95 MIL/uL (4.00-5.20); RED CELL DISTRIBUTION WIDTH 17.5 % (11.5-14.5)
[2017-12-21 12:06] LABS: ANION GAP 10 mmol/L (8-16); CALCIUM, TOTAL 9.3 mg/dL (8.8-10.5); CARBON DIOXIDE 27 mmol/L (22-29); CHLORIDE 106 mmol/L (98-107); GLOMERULAR FILTR. RATE CALC > 60 mL/min (>60); GLUCOSE,RANDOM 95 mg/dL (70-110); POTASSIUM 3.4 mmol/L (3.5-5.1); SODIUM SERUM 143 mmol/L (136-145); UREA NITROGEN, BLOOD 16 mg/dL (7-18)
[2017-12-21 12:12] LABS: ALANINE AMINOTRANSFERASE 18 U/L (12-78); ALBUMIN 3.5 g/dL (3.4-5.0); ALKALINE PHOSPHATASE 90 U/L (46-116); ASPARTATE AMINOTRANSFERASE 15 U/L (15-37); BILIRUBIN,TOTAL 0.2 mg/dL (0.1-1.0); TOTAL PROTEIN, SERUM 7.5 g/dL (6.4-8.2)
[2017-12-21 12:14] LABS: GLUCOSE,POINT OF CARE 89 MG/DL (70-110)
[2017-12-21] MEDS ORDERED: IBUPROFEN 800 MG TABLET PO ONE (14:30)
[2017-12-21 14:39] VITALS: BP 133/76
== END 2017-12-21 15:41 | disposition left against medical advice (07) ==
LOC: EMS 08:12
DX: R07.9 Chest pain, unspecified (principal); M25.562 Pain in left knee; M79.602 Pain in left arm; F31.9 Bipolar disorder, unspecified; I10 Essential (primary) hypertension; I25.10 Atherosclerotic heart disease of native coronary artery without angina pectoris; J44.9 Chronic obstructive pulmonary disease, unspecified; E11.9 Type 2 diabetes mellitus without complications; I25.2 Old myocardial infarction; F20.9 Schizophrenia, unspecified; G89.29 Other chronic pain; F17.210 Nicotine dependence, cigarettes, uncomplicated; Z86.73 Personal history of transient ischemic attack (TIA), and cerebral infarction without residual deficits; Z88.0 Allergy status to penicillin; Z88.1 Allergy status to other antibiotic agents; Z88.8 Allergy status to other drugs, medicaments and biological substances; Z79.82 Long term (current) use of aspirin
CPT/HCPCS: 36415; 71045; 80053; 82962; 84484; 85025; 93005; 96374; 99285; J1885

== ENCOUNTER 2017-12-21 20:16 | Emergency (ER) | payer MEDICARE, OTHER ==
[~2017-12-21 20:16] MED LIST changes: +GABA-531 PO; +IBUP-2071 PO
== END 2017-12-21 20:50 | disposition left against medical advice (07) ==
LOC: EMS 20:17
DX: H57.12 Ocular pain, left eye (principal); M79.672 Pain in left foot; I25.10 Atherosclerotic heart disease of native coronary artery without angina pectoris; J44.9 Chronic obstructive pulmonary disease, unspecified; F32.9 Major depressive disorder, single episode, unspecified; E11.9 Type 2 diabetes mellitus without complications; I10 Essential (primary) hypertension; I25.2 Old myocardial infarction; F17.210 Nicotine dependence, cigarettes, uncomplicated; G89.29 Other chronic pain; F20.9 Schizophrenia, unspecified; Z86.73 Personal history of transient ischemic attack (TIA), and cerebral infarction without residual deficits; Z53.21 Procedure and treatment not carried out due to patient leaving prior to being seen by health care provider

== ENCOUNTER 2017-12-23 17:40 | Emergency (ER) | payer MEDICARE, OTHER | END 2017-12-23 18:09 | disposition left against medical advice (07) | LOC: EMS 17:42 | DX: R10.9 Unspecified abdominal pain (principal); Z53.21 Procedure and treatment not carried out due to patient leaving prior to being seen by health care provider ==

== ENCOUNTER 2018-01-01 07:28 | Emergency (ER) | payer MEDICARE, OTHER ==
[~2018-01-01] VITALS: Ht 167.6 cm; Wt 77.3 kg
[2018-01-01 07:33] VITALS: BP 176/79
[2018-01-01] MEDS ORDERED: TraMADol HCL 50 MG TABLET PO ONE (08:15)
== END 2018-01-01 10:34 | disposition home or self-care (01) ==
LOC: EMS 07:30
DX: M25.512 Pain in left shoulder (principal); I10 Essential (primary) hypertension; E11.9 Type 2 diabetes mellitus without complications; F31.9 Bipolar disorder, unspecified; J44.9 Chronic obstructive pulmonary disease, unspecified; I25.10 Atherosclerotic heart disease of native coronary artery without angina pectoris; F17.210 Nicotine dependence, cigarettes, uncomplicated; Z88.0 Allergy status to penicillin; Z88.8 Allergy status to other drugs, medicaments and biological substances
CPT/HCPCS: 99284

== ENCOUNTER 2018-01-01 14:19 | Emergency (ER) | payer MEDICARE, OTHER ==
[~2018-01-01] VITALS: Ht 167.6 cm; Wt 75.0 kg
[2018-01-01 14:28] VITALS: BP 158/97
[2018-01-01 14:38] LABS: GLUCOSE,POINT OF CARE 164 MG/DL (70-110)
== END 2018-01-01 15:57 | disposition left against medical advice (07) ==
LOC: EMS 14:19
DX: R42 Dizziness and giddiness (principal); R51 Headache; R11.0 Nausea; J44.9 Chronic obstructive pulmonary disease, unspecified; E11.9 Type 2 diabetes mellitus without complications; I10 Essential (primary) hypertension; I25.2 Old myocardial infarction; F20.9 Schizophrenia, unspecified; F31.9 Bipolar disorder, unspecified; G89.29 Other chronic pain; F17.210 Nicotine dependence, cigarettes, uncomplicated; Z86.73 Personal history of transient ischemic attack (TIA), and cerebral infarction without residual deficits; Z53.21 Procedure and treatment not carried out due to patient leaving prior to being seen by health care provider

== ENCOUNTER 2018-01-01 20:45 | Emergency (ER) | payer MEDICARE, OTHER ==
[~2018-01-01] VITALS: Ht 167.6 cm; Wt 77.3 kg
[2018-01-01 23:38] LABS: GLUCOSE,POINT OF CARE 133 MG/DL (70-110)
[2018-01-02 03:38] VITALS: BP 147/82
== END 2018-01-02 03:55 | disposition home or self-care (01) ==
LOC: EMS 20:48
DX: K64.9 Unspecified hemorrhoids (principal); F31.9 Bipolar disorder, unspecified; F41.9 Anxiety disorder, unspecified; I10 Essential (primary) hypertension; E11.9 Type 2 diabetes mellitus without complications; I25.2 Old myocardial infarction; J44.9 Chronic obstructive pulmonary disease, unspecified; I25.10 Atherosclerotic heart disease of native coronary artery without angina pectoris; F17.210 Nicotine dependence, cigarettes, uncomplicated; Z88.1 Allergy status to other antibiotic agents; Z88.8 Allergy status to other drugs, medicaments and biological substances; Z79.82 Long term (current) use of aspirin
CPT/HCPCS: 99283; 99406

== ENCOUNTER 2018-01-04 03:17 | Emergency (ER) | payer MEDICARE, OTHER ==
[~2018-01-04] VITALS: Ht 167.6 cm; Wt 77.3 kg
[2018-01-04 03:39] LABS: GLUCOSE,POINT OF CARE 111 MG/DL (70-110)
[2018-01-04 06:15] VITALS: BP 147/81
== END 2018-01-04 06:42 | disposition home or self-care (01) ==
LOC: EMS 03:18
DX: F20.9 Schizophrenia, unspecified (principal); M54.5 Low back pain; G89.29 Other chronic pain; I25.10 Atherosclerotic heart disease of native coronary artery without angina pectoris; J44.9 Chronic obstructive pulmonary disease, unspecified; F31.9 Bipolar disorder, unspecified; I10 Essential (primary) hypertension; E11.9 Type 2 diabetes mellitus without complications; I25.2 Old myocardial infarction; F17.210 Nicotine dependence, cigarettes, uncomplicated; Z86.73 Personal history of transient ischemic attack (TIA), and cerebral infarction without residual deficits; Z79.82 Long term (current) use of aspirin; Z88.1 Allergy status to other antibiotic agents; Z88.8 Allergy status to other drugs, medicaments and biological substances; Z88.0 Allergy status to penicillin
CPT/HCPCS: 99283

== ENCOUNTER 2018-01-17 14:32 | Emergency (ER) | payer MEDICARE, OTHER ==
[~2018-01-17] VITALS: Ht 167.6 cm; Wt 77.3 kg
[2018-01-17 14:48] LABS: GLUCOSE,POINT OF CARE 93 MG/DL (70-110)
[2018-01-17 16:16] LABS: BASOPHILS % (AUTO) 0.4 % (0.0-2.0); EOSINOPHILS % (AUTO) 1.5 % (1.0-6.0); HEMOGLOBIN 13.1 g/dL (12.0-16.0); LYMPHOCYTES % (AUTO) 33.3 % (22.0-44.0); MEAN CORPUSCULAR HEMOGLOBIN 27.8 pg (26.0-34.0); MEAN CORPUSCULAR HGB CONC 32.7 G/dL (31.0-37.0); MEAN CORPUSCULAR VOLUME 85 fL (80-100); MONOCYTES # (AUTO) 0.3 K/uL (0.1-1.0); MONOCYTES % (AUTO) 5.8 % (2.0-9.0); NEUTROPHILS # (AUTO) 3.5 K/uL (1.8-7.7); PLATELET COUNT (AUTO) 233 K/uL (150-450); RED BLOOD CELL COUNT(AUTO) 4.71 MIL/uL (4.00-5.20); RED CELL DISTRIBUTION WIDTH 17.4 % (11.5-14.5)
[2018-01-17 16:28] LABS: INR 0.9 (0.9-1.1); PROTHROMBIN TIME 9.8 SEC (9.4-11.6)
[2018-01-17 16:30] LABS: ANION GAP 12 mmol/L (8-16); CALCIUM, TOTAL 8.9 mg/dL (8.8-10.5); CARBON DIOXIDE 23 mmol/L (22-29); CHLORIDE 107 mmol/L (98-107); CREATININE 0.71 mg/dL (0.60-1.30); GLOMERULAR FILTR. RATE CALC > 60 mL/min (>60); GLUCOSE,RANDOM 165 mg/dL (70-110); POTASSIUM 3.6 mmol/L (3.5-5.1); SODIUM SERUM 142 mmol/L (136-145); UREA NITROGEN, BLOOD 16 mg/dL (7-18)
[2018-01-17 16:36] LABS: ALANINE AMINOTRANSFERASE 21 U/L (12-78); ALBUMIN 3.3 g/dL (3.4-5.0); ALKALINE PHOSPHATASE 70 U/L (46-116); ASPARTATE AMINOTRANSFERASE 23 U/L (15-37); BILIRUBIN,TOTAL 0.2 mg/dL (0.1-1.0); CREATINE KINASE, TOTAL ONLY 48 U/L (26-192); TOTAL PROTEIN, SERUM 7.1 g/dL (6.4-8.2)
[2018-01-17 16:39] LABS: B-TYPE NATRIURETIC PEPTIDE 94 pg/mL (0-100)
[2018-01-17 17:39] LABS: APPEARANCE,URINE CLOUDY (CLEAR); BILIRUBIN,URINE NEGATIVE (NEGATIVE); GLUCOSE, URINE (UA) NEGATIVE (NEGATIVE); KETONES,URINE NEGATIVE (NEGATIVE); LEUKOCYTE ESTERASE ,URINE SMALL (NEGATIVE); NITRATE,URINE NEGATIVE (NEGATIVE); OCCULT BLOOD,URINE NEGATIVE (NEGATIVE); PROTEIN,URINE NEGATIVE (NEGATIVE); UROBILINOGEN,URINE 0.2 mg/dL (<=1.0)
[2018-01-17 17:48] LABS: RBC,URINE 0-2 /HPF (0-2)
[2018-01-17 17:49] LABS: AMORPHOUS SEDIMENT,UR Moderate /LPF (None Seen); BACTERIA,URINE Moderate /HPF (None Seen); SQUAMOUS EPITHELIAL CELL,UR Moderate /LPF (None Seen)
[2018-01-17] MEDS ORDERED: SULFAMETHOX/TRIMETH DS 800-160 MG/TABLET PO ONE (18:00)
[2018-01-17] MEDS ORDERED: ACETAMINOPHEN 325 MG TABLET PO ONE ×2 (18:30)
[2018-01-17 21:37] VITALS: BP 122/63
== END 2018-01-17 21:39 | disposition home or self-care (01) ==
LOC: EMS 14:34
DX: N39.0 Urinary tract infection, site not specified (principal); R07.9 Chest pain, unspecified; R20.0 Anesthesia of skin; F31.9 Bipolar disorder, unspecified; I25.10 Atherosclerotic heart disease of native coronary artery without angina pectoris; J44.9 Chronic obstructive pulmonary disease, unspecified; E11.9 Type 2 diabetes mellitus without complications; I10 Essential (primary) hypertension; I25.2 Old myocardial infarction; F20.9 Schizophrenia, unspecified; G89.29 Other chronic pain; F17.210 Nicotine dependence, cigarettes, uncomplicated; Z86.73 Personal history of transient ischemic attack (TIA), and cerebral infarction without residual deficits; Z88.8 Allergy status to other drugs, medicaments and biological substances; Z88.1 Allergy status to other antibiotic agents; Z88.0 Allergy status to penicillin; Z79.82 Long term (current) use of aspirin
CPT/HCPCS: 87086; 93005; 99285

== ENCOUNTER 2018-01-19 02:04 | Emergency (ER) | payer MEDICARE, OTHER ==
[~2018-01-19] VITALS: Ht 167.6 cm; Wt 77.2 kg
[2018-01-19 04:44] VITALS: BP 140/78
== END 2018-01-19 04:49 | disposition home or self-care (01) ==
LOC: EMS 02:05
DX: R10.9 Unspecified abdominal pain (principal); M79.642 Pain in left hand; F31.9 Bipolar disorder, unspecified; I25.10 Atherosclerotic heart disease of native coronary artery without angina pectoris; J44.9 Chronic obstructive pulmonary disease, unspecified; E11.9 Type 2 diabetes mellitus without complications; I10 Essential (primary) hypertension; I25.2 Old myocardial infarction; F20.9 Schizophrenia, unspecified; Z86.73 Personal history of transient ischemic attack (TIA), and cerebral infarction without residual deficits; Z88.1 Allergy status to other antibiotic agents; Z88.8 Allergy status to other drugs, medicaments and biological substances; Z79.899 Other long term (current) drug therapy
CPT/HCPCS: 99283

== ENCOUNTER 2018-01-19 13:55 | Emergency (ER) | payer MEDICARE, OTHER ==
[~2018-01-19] VITALS: Ht 167.6 cm; Wt 77.0 kg
[2018-01-19 14:14] VITALS: BP 116/68
[2018-01-19 14:24] LABS: GLUCOSE,POINT OF CARE 114 MG/DL (70-110)
== END 2018-01-19 16:46 | disposition home or self-care (01) ==
LOC: EMS 13:56
DX: S09.90XA Unspecified injury of head, initial encounter (principal); M25.561 Pain in right knee; M21.932 Unspecified acquired deformity of left forearm; F31.9 Bipolar disorder, unspecified; I25.10 Atherosclerotic heart disease of native coronary artery without angina pectoris; J44.9 Chronic obstructive pulmonary disease, unspecified; E11.9 Type 2 diabetes mellitus without complications; I10 Essential (primary) hypertension; I25.2 Old myocardial infarction; F20.9 Schizophrenia, unspecified; G89.29 Other chronic pain; F17.210 Nicotine dependence, cigarettes, uncomplicated; Z86.73 Personal history of transient ischemic attack (TIA), and cerebral infarction without residual deficits; Z88.5 Allergy status to narcotic agent; Z88.0 Allergy status to penicillin; Z79.82 Long term (current) use of aspirin; W07.XXXA Fall from chair, initial encounter; Y93.89 Activity, other specified; Y92.89 Other specified places as the place of occurrence of the external cause; Y99.8 Other external cause status
CPT/HCPCS: 70450; 99284

== ENCOUNTER 2018-01-20 13:39 | Emergency (ER) | payer MEDICARE, OTHER ==
[~2018-01-20] VITALS: Ht 162.6 cm; Wt 77.3 kg
[2018-01-20 14:04] LABS: GLUCOSE,POINT OF CARE 113 MG/DL (70-110)
[2018-01-20 16:00] VITALS: BP 140/76
== END 2018-01-20 17:51 | disposition home or self-care (01) ==
LOC: EMS 13:40
DX: F31.9 Bipolar disorder, unspecified (principal); I25.10 Atherosclerotic heart disease of native coronary artery without angina pectoris; J44.9 Chronic obstructive pulmonary disease, unspecified; Z86.79 Personal history of other diseases of the circulatory system; I25.2 Old myocardial infarction; Z86.73 Personal history of transient ischemic attack (TIA), and cerebral infarction without residual deficits; E11.9 Type 2 diabetes mellitus without complications; I10 Essential (primary) hypertension; F17.210 Nicotine dependence, cigarettes, uncomplicated; Z88.1 Allergy status to other antibiotic agents; Z88.0 Allergy status to penicillin; Z79.82 Long term (current) use of aspirin; Z79.899 Other long term (current) drug therapy
CPT/HCPCS: 99285

== ENCOUNTER 2018-03-05 10:49 | Emergency (ER) | payer MEDICARE, OTHER ==
[~2018-03-05] VITALS: Ht 154.9 cm; Wt 82.2 kg
[2018-03-05 13:55] VITALS: BP 180/98
== END 2018-03-05 14:31 | disposition home or self-care (01) ==
LOC: EMS 10:54
DX: S80.01XA Contusion of right knee, initial encounter (principal); I11.9 Hypertensive heart disease without heart failure; I25.10 Atherosclerotic heart disease of native coronary artery without angina pectoris; I25.2 Old myocardial infarction; F20.9 Schizophrenia, unspecified; F31.9 Bipolar disorder, unspecified; J44.9 Chronic obstructive pulmonary disease, unspecified; F17.210 Nicotine dependence, cigarettes, uncomplicated; E11.9 Type 2 diabetes mellitus without complications; M25.551 Pain in right hip; M79.651 Pain in right thigh; Z86.79 Personal history of other diseases of the circulatory system; Z88.0 Allergy status to penicillin; Z88.8 Allergy status to other drugs, medicaments and biological substances; Z79.82 Long term (current) use of aspirin; Z79.84 Long term (current) use of oral hypoglycemic drugs; Z79.899 Other long term (current) drug therapy; W05.0XXA Fall from non-moving wheelchair, initial encounter; Y93.89 Activity, other specified; Y92.488 Other paved roadways as the place of occurrence of the external cause; Y99.8 Other external cause status; Z88.1 Allergy status to other antibiotic agents
CPT/HCPCS: 73552

== ENCOUNTER 2018-03-08 19:02 | Inpatient (IN) | payer MEDICARE, MEDICAID ==
[~2018-03-08] VITALS: Ht 172.7 cm; Wt 5.0 kg
[2018-03-08 19:52] LABS: BASOPHILS % (AUTO) 1.2 % (0.0-2.0); EOSINOPHILS % (AUTO) 2.4 % (1.0-6.0); HEMOGLOBIN 13.1 g/dL (12.0-16.0); LYMPHOCYTES # (AUTO) 2.8 K/uL (1.0-4.8); MEAN CORPUSCULAR HEMOGLOBIN 28.3 pg (26.0-34.0); MEAN CORPUSCULAR HGB CONC 33.6 G/dL (31.0-37.0); MEAN CORPUSCULAR VOLUME 84 fL (80-100); MONOCYTES # (AUTO) 0.6 K/uL (0.1-1.0); MONOCYTES % (AUTO) 9.6 % (2.0-9.0); NEUTROPHILS # (AUTO) 2.6 K/uL (1.8-7.7); NEUTROPHILS % (AUTO) 41.8 % (40.0-70.0); PLATELET COUNT (AUTO) 254 K/uL (150-450); RED BLOOD CELL COUNT(AUTO) 4.63 MIL/uL (4.00-5.20); RED CELL DISTRIBUTION WIDTH 16.7 % (11.5-14.5)
[2018-03-08 19:53] LABS: GLUCOSE,POINT OF CARE 108 MG/DL (70-110)
[2018-03-08 20:01] LABS: ANION GAP 9 mmol/L (8-16); CALCIUM, TOTAL 9.2 mg/dL (8.8-10.5); CARBON DIOXIDE 29 mmol/L (22-29); CHLORIDE 102 mmol/L (98-107); CREATININE 0.59 mg/dL (0.60-1.30); GLOMERULAR FILTR. RATE CALC > 60 mL/min (>60); GLUCOSE,RANDOM 116 mg/dL (70-110); POTASSIUM 3.5 mmol/L (3.5-5.1); SODIUM SERUM 140 mmol/L (136-145); UREA NITROGEN, BLOOD 20 mg/dL (7-18)
[2018-03-08 20:08] LABS: ALANINE AMINOTRANSFERASE 19 U/L (12-78); ALBUMIN 3.7 g/dL (3.4-5.0); ALKALINE PHOSPHATASE 84 U/L (46-116); ASPARTATE AMINOTRANSFERASE 18 U/L (15-37); BILIRUBIN,TOTAL 0.2 mg/dL (0.1-1.0); TOTAL PROTEIN, SERUM 7.9 g/dL (6.4-8.2)
[2018-03-08 20:19] LABS: APPEARANCE,URINE CLEAR (CLEAR); BILIRUBIN,URINE NEGATIVE (NEGATIVE); GLUCOSE, URINE (UA) NEGATIVE (NEGATIVE); KETONES,URINE NEGATIVE (NEGATIVE); LEUKOCYTE ESTERASE ,URINE NEGATIVE (NEGATIVE); NITRATE,URINE NEGATIVE (NEGATIVE); OCCULT BLOOD,URINE NEGATIVE (NEGATIVE); PH,URINE 5.5 (5.0-8.0); PROTEIN,URINE SEE CONFIRM (NEGATIVE)
[2018-03-08 20:25] LABS: AMPHET/METH SCREEN,URINE POSITIVE (NEGATIVE); BARBITURATE SCREEN, URINE NEGATIVE (NEGATIVE); BENZODIAZEPINES SCREEN,URINE NEGATIVE (NEGATIVE); CANNABINOID SCREEN,URINE NEGATIVE (NEGATIVE); COCAINE SCREEN,URINE POSITIVE (NEGATIVE); METHADONE SCREEN, URINE NEGATIVE (NEGATIVE); OPIATE SCREEN,URINE POSITIVE (NEGATIVE); PHENCYCLIDINE SCREEN,URINE NEGATIVE (NEGATIVE)
[2018-03-08 20:26] LABS: SULFOSALICYLIC ACID,URINE 3+ (Negative)
[2018-03-08 20:28] LABS: RBC,URINE None Seen /HPF (0-2); WBC,URINE None Seen /HPF (0-5)
[2018-03-08 20:29] LABS: BACTERIA,URINE None Seen /HPF (None Seen); SQUAMOUS EPITHELIAL CELL,UR Rare /LPF (None Seen)
[2018-03-08] MEDS ORDERED: LORazepam 1 MG TABLET PO ONE (21:00)
[2018-03-09] MEDS ORDERED: PNEUMOCOCCAL VACCINE POLYVALENT 0.5 ML VIAL [PPSV23] IM ONE (03:15)
[2018-03-09 03:22] VITALS: BP 164/107
[2018-03-09 06:28] LABS: GLUCOMETER DEV NAME(LOC) 3EI C; GLUCOSE,POINT OF CARE 118 MG/DL (70-110)
[2018-03-09] MEDS ORDERED: ACETAMINOPHEN 325 MG TABLET PO PRN (07:00)
[2018-03-09] MEDS ORDERED: MAGNESIUM HYDROXIDE SUSPENSION 30 ML UDCUP PO PRN (07:00)
[2018-03-09] MEDS ORDERED: PETROLATUM,WHITE 71 GM JELLY TP PRN (07:00)
[2018-03-09] MEDS ORDERED: NICOTINE 14 MG/24 HOUR PATCH TD PRN (07:00)
[2018-03-09] MEDS ORDERED: DOCUSATE SODIUM 100 MG CAPSULE PO PRN (07:00)
[2018-03-09] MEDS ORDERED: LOPERAMIDE HCL 2 MG CAPSULE PO PRN (07:00)
[2018-03-09] MEDS ORDERED: CloNIDine HCL 0.1 MG TABLET PO PRN (07:00)
[2018-03-09] MEDS ORDERED: GuaiFENesin/D-METHORPHAN [SUGAR-FREE] 200-20MG/10 ML SYRUP UDCUP PO PRN (07:00)
[2018-03-09] MEDS ORDERED: ONDANSETRON HCL 4 MG TABLET PO PRN (07:00)
[2018-03-09] MEDS ORDERED: ALBUTEROL SULFATE HFA 90 MCG/PUFF 8 GM INHALER IH PRN (07:00)
[2018-03-09] MEDS: GlipiZIDE 10 MG TABLET PO SCH (07:18)
[2018-03-09] MEDS: IBUPROFEN 400 MG TABLET PO PRN (07:21)
[2018-03-09] MEDS: ASPIRIN 81 MG CHEWABLE TABLET PO SCH (07:55)
[2018-03-09 08:00] VITALS: BP 158/96
[2018-03-09] MEDS: METOPROLOL TARTRATE 25 MG TABLET PO SCH ×2 (08:19→16:57)
[2018-03-09] MEDS: GABAPENTIN 300 MG CAPSULE PO SCH ×4 (08:19→20:39)
[2018-03-09] MEDS ORDERED: TOPIRAMATE 25 MG TABLET PO SCH (09:00)
[2018-03-09 09:24] LABS: CHOL/HDL RATIO 4.9 (3.9-5.7)
[2018-03-09 10:53] VITALS: BP 131/76
[2018-03-09] MEDS: DULoxetine HCL 30 MG CAPSULE PO SCH ×2 (12:12→16:56)
[2018-03-09] MEDS: TOPIRAMATE 25 MG TABLET PO SCH ×2 (12:12→16:57)
[2018-03-09] MEDS: ROSUVASTATIN CALCIUM 20 MG TABLET PO SCH (20:36)
[2018-03-09] MEDS: PHENYTOIN SODIUM 100 MG ER CAPSULE PO SCH (20:36)
[2018-03-09] MEDS: ZOLPIDEM TARTRATE 10 MG TABLET PO PRN (20:39)
[2018-03-09 22:03] VITALS: BP 144/82
[2018-03-10] MEDS: IBUPROFEN 400 MG TABLET PO PRN (01:25)
[2018-03-10 01:27] VITALS: BP 115/63
[2018-03-10 06:49] LABS: BASOPHILS % (AUTO) 0.5 % (0.0-2.0); EOSINOPHILS % (AUTO) 1.9 % (1.0-6.0); HEMATOCRIT 36.1 % (36-46); HEMOGLOBIN 12.2 g/dL (12.0-16.0); LYMPHOCYTES % (AUTO) 37.3 % (22.0-44.0); MEAN CORPUSCULAR HEMOGLOBIN 27.9 pg (26.0-34.0); MEAN CORPUSCULAR HGB CONC 33.8 G/dL (31.0-37.0); MEAN CORPUSCULAR VOLUME 82 fL (80-100); MONOCYTES # (AUTO) 0.5 K/uL (0.1-1.0); MONOCYTES % (AUTO) 9.1 % (2.0-9.0); NEUTROPHILS # (AUTO) 2.8 K/uL (1.8-7.7); NEUTROPHILS % (AUTO) 51.2 % (40.0-70.0); PLATELET COUNT (AUTO) 242 K/uL (150-450); RED BLOOD CELL COUNT(AUTO) 4.38 MIL/uL (4.00-5.20); RED CELL DISTRIBUTION WIDTH 16.6 % (11.5-14.5)
[2018-03-10] MEDS: ASPIRIN 81 MG CHEWABLE TABLET PO SCH (07:00)
[2018-03-10] MEDS: GlipiZIDE 10 MG TABLET PO SCH (07:00)
[2018-03-10 07:01] LABS: ALANINE AMINOTRANSFERASE 15 U/L (12-78); ALBUMIN 3.3 g/dL (3.4-5.0); ALKALINE PHOSPHATASE 70 U/L (46-116); ANION GAP 7 mmol/L (8-16); ASPARTATE AMINOTRANSFERASE 13 U/L (15-37); BILIRUBIN,TOTAL 0.2 mg/dL (0.1-1.0); CALCIUM, TOTAL 8.7 mg/dL (8.8-10.5); CARBON DIOXIDE 27 mmol/L (22-29); CHLORIDE 103 mmol/L (98-107); CHOL/HDL RATIO 5.1 (3.9-5.7); CHOLESTEROL 246 mg/dL (131-200); CREATININE 0.62 mg/dL (0.60-1.30); GLOMERULAR FILTR. RATE CALC > 60 mL/min (>60); GLUCOSE,RANDOM 104 mg/dL (70-110); HDL CHOLESTEROL 48 mg/dL (40-60); LDL CHOL (CALC.) 170 mg/dL (0-130); POTASSIUM 3.7 mmol/L (3.5-5.1); SODIUM SERUM 137 mmol/L (136-145); THYROID STIMULATING HORMONE 0.53 uIU/mL (0.36-3.74); TRIGLYCERIDES 142 mg/dL (15-150); UREA NITROGEN, BLOOD 20 mg/dL (7-18)
[2018-03-10 07:28] LABS: HEMOGLOBIN A1C 6.5 % (4.5-6.2)
[2018-03-10] MEDS: DULoxetine HCL 30 MG CAPSULE PO SCH ×2 (08:37→16:41)
[2018-03-10] MEDS: PHENYTOIN SODIUM 100 MG ER CAPSULE PO SCH (08:38)
[2018-03-10] MEDS: GABAPENTIN 300 MG CAPSULE PO SCH ×4 (08:38→20:00)
[2018-03-10] MEDS: METOPROLOL TARTRATE 25 MG TABLET PO SCH ×2 (08:38→16:42)
[2018-03-10] MEDS: TOPIRAMATE 25 MG TABLET PO SCH ×2 (08:39→16:42)
[2018-03-10 12:22] VITALS: BP 145/78
[2018-03-10 16:27] VITALS: BP 108/65
[2018-03-10] MEDS: ZOLPIDEM TARTRATE 10 MG TABLET PO PRN (20:00)
[2018-03-10] MEDS: ROSUVASTATIN CALCIUM 20 MG TABLET PO SCH (21:08)
[2018-03-11 05:14] VITALS: BP 128/75
[2018-03-11] MEDS: IBUPROFEN 400 MG TABLET PO PRN ×3 (05:22→18:47)
[2018-03-11] MEDS: GlipiZIDE 10 MG TABLET PO SCH (07:01)
[2018-03-11] MEDS: ASPIRIN 81 MG CHEWABLE TABLET PO SCH (07:01)
[2018-03-11] MEDS: DULoxetine HCL 30 MG CAPSULE PO SCH ×2 (08:08→16:16)
[2018-03-11] MEDS: TOPIRAMATE 25 MG TABLET PO SCH ×2 (08:08→16:16)
[2018-03-11] MEDS: PHENYTOIN SODIUM 100 MG ER CAPSULE PO SCH (08:08)
[2018-03-11] MEDS: METOPROLOL TARTRATE 25 MG TABLET PO SCH ×2 (08:09→16:16)
[2018-03-11] MEDS: GABAPENTIN 300 MG CAPSULE PO SCH ×4 (08:09→20:33)
[2018-03-11 08:54] VITALS: BP 122/73
[2018-03-11 16:08] VITALS: BP 103/68
[2018-03-11 18:47] VITALS: BP 112/69
[2018-03-11] MEDS: SIMVASTATIN 10 MG TABLET PO SCH (20:33)
[2018-03-11] MEDS: ROSUVASTATIN CALCIUM 20 MG TABLET PO SCH (20:33)
[2018-03-11] MEDS: ZOLPIDEM TARTRATE 10 MG TABLET PO PRN (23:37)
[2018-03-12 04:32] VITALS: BP 101/62
[2018-03-12] MEDS: IBUPROFEN 400 MG TABLET PO PRN ×2 (04:35→11:32)
[2018-03-12] MEDS: GlipiZIDE 10 MG TABLET PO SCH (07:08)
[2018-03-12] MEDS: ASPIRIN 81 MG CHEWABLE TABLET PO SCH (07:08)
[2018-03-12] MEDS: GABAPENTIN 300 MG CAPSULE PO SCH ×4 (08:11→20:07)
[2018-03-12] MEDS: DULoxetine HCL 30 MG CAPSULE PO SCH ×2 (08:11→16:21)
[2018-03-12] MEDS: PHENYTOIN SODIUM 100 MG ER CAPSULE PO SCH (08:11)
[2018-03-12] MEDS: TOPIRAMATE 25 MG TABLET PO SCH ×2 (08:11→16:20)
[2018-03-12] MEDS: METOPROLOL TARTRATE 25 MG TABLET PO SCH ×2 (09:25→16:21)
[2018-03-12 10:34] VITALS: BP 113/67
[2018-03-12 16:00] VITALS: BP 110/59
[2018-03-12] MEDS: LORazepam 2 MG TABLET PO PRN (18:54)
[2018-03-12] MEDS: HALOPERIDOL 5 MG TABLET PO PRN (18:54)
[2018-03-12] MEDS: ROSUVASTATIN CALCIUM 20 MG TABLET PO SCH (20:07)
[2018-03-12] MEDS: SIMVASTATIN 10 MG TABLET PO SCH (20:08)
[2018-03-13 04:32] VITALS: BP 127/75
[2018-03-13] MEDS: ASPIRIN 81 MG CHEWABLE TABLET PO SCH (07:05)
[2018-03-13] MEDS: GlipiZIDE 10 MG TABLET PO SCH (07:05)
[2018-03-13] MEDS: DULoxetine HCL 30 MG CAPSULE PO SCH ×2 (08:23→16:00)
[2018-03-13] MEDS: TOPIRAMATE 25 MG TABLET PO SCH ×2 (08:23→16:00)
[2018-03-13] MEDS: IBUPROFEN 400 MG TABLET PO PRN ×2 (08:23→19:57)
[2018-03-13] MEDS: PHENYTOIN SODIUM 100 MG ER CAPSULE PO SCH (08:23)
[2018-03-13] MEDS: METOPROLOL TARTRATE 25 MG TABLET PO SCH ×2 (08:23→16:00)
[2018-03-13] MEDS: GABAPENTIN 300 MG CAPSULE PO SCH ×4 (08:23→20:02)
[2018-03-13 08:35] VITALS: BP 112/71
[2018-03-13 09:40] VITALS: BP 115/69
[2018-03-13 16:46] VITALS: BP 106/68
[2018-03-13 19:54] VITALS: BP 102/67
[2018-03-13] MEDS: SIMVASTATIN 10 MG TABLET PO SCH (20:01)
[2018-03-13] MEDS: ROSUVASTATIN CALCIUM 20 MG TABLET PO SCH (20:02)
[2018-03-13] MEDS: ZOLPIDEM TARTRATE 10 MG TABLET PO PRN (21:56)
[2018-03-14 05:10] VITALS: BP 108/67
[2018-03-14] MEDS: IBUPROFEN 400 MG TABLET PO PRN ×2 (05:12→16:34)
[2018-03-14] MEDS: GlipiZIDE 10 MG TABLET PO SCH (06:27)
[2018-03-14 08:10] VITALS: BP 103/63
[2018-03-14] MEDS: METOPROLOL TARTRATE 25 MG TABLET PO SCH ×2 (08:17→16:34)
[2018-03-14] MEDS: PHENYTOIN SODIUM 100 MG ER CAPSULE PO SCH (08:17)
[2018-03-14] MEDS: ASPIRIN 81 MG CHEWABLE TABLET PO SCH (08:17)
[2018-03-14] MEDS: TOPIRAMATE 25 MG TABLET PO SCH ×2 (08:18→16:34)
[2018-03-14] MEDS: DULoxetine HCL 30 MG CAPSULE PO SCH ×2 (08:18→16:34)
[2018-03-14] MEDS: GABAPENTIN 300 MG CAPSULE PO SCH ×4 (08:18→20:00)
[2018-03-14 09:15] VITALS: BP 112/62
[2018-03-14] MEDS: LORazepam 2 MG TABLET PO PRN ×2 (10:21→19:25)
[2018-03-14 16:30] VITALS: BP 119/78
[2018-03-14] MEDS: SIMVASTATIN 10 MG TABLET PO SCH (20:00)
[2018-03-14] MEDS: ROSUVASTATIN CALCIUM 20 MG TABLET PO SCH (20:00)
[2018-03-14] MEDS: ZOLPIDEM TARTRATE 10 MG TABLET PO PRN (20:03)
[2018-03-15 00:55] VITALS: BP 113/70
[2018-03-15 04:15] VITALS: BP 122/64
[2018-03-15] MEDS: LORazepam 2 MG TABLET PO PRN ×2 (04:20→17:40)
[2018-03-15] MEDS: GlipiZIDE 10 MG TABLET PO SCH (07:00)
[2018-03-15] MEDS: METOPROLOL TARTRATE 25 MG TABLET PO SCH ×2 (08:58→16:11)
[2018-03-15] MEDS: PHENYTOIN SODIUM 100 MG ER CAPSULE PO SCH (08:58)
[2018-03-15] MEDS: ASPIRIN 81 MG CHEWABLE TABLET PO SCH (08:58)
[2018-03-15] MEDS: DULoxetine HCL 30 MG CAPSULE PO SCH ×2 (08:58→16:11)
[2018-03-15] MEDS: GABAPENTIN 300 MG CAPSULE PO SCH ×4 (08:59→20:09)
[2018-03-15] MEDS: TOPIRAMATE 25 MG TABLET PO SCH ×2 (08:59→16:11)
[2018-03-15] MEDS: MAG HYDROX/AL HYDROX/SIMETH ES 30 ML SUSPENSION UDCUP PO PRN (09:57)
[2018-03-15 12:41] VITALS: BP 117/68
[2018-03-15] MEDS: IBUPROFEN 400 MG TABLET PO PRN (12:41)
[2018-03-15 13:34] VITALS: BP 113/67
[2018-03-15 16:18] VITALS: BP 126/82
[2018-03-15] MEDS: HALOPERIDOL 5 MG TABLET PO PRN (17:40)
[2018-03-15] MEDS: ZOLPIDEM TARTRATE 10 MG TABLET PO PRN (20:09)
[2018-03-15] MEDS: SIMVASTATIN 10 MG TABLET PO SCH (20:09)
[2018-03-15] MEDS: ROSUVASTATIN CALCIUM 20 MG TABLET PO SCH (20:09)
[2018-03-16 06:25] VITALS: BP 115/79
[2018-03-16] MEDS: GlipiZIDE 10 MG TABLET PO SCH (07:29)
[2018-03-16 08:24] VITALS: BP 106/60
[2018-03-16] MEDS: GABAPENTIN 300 MG CAPSULE PO SCH ×4 (08:40→21:26)
[2018-03-16] MEDS: DULoxetine HCL 30 MG CAPSULE PO SCH ×2 (08:40→16:22)
[2018-03-16] MEDS: TOPIRAMATE 25 MG TABLET PO SCH ×2 (08:41→16:21)
[2018-03-16] MEDS: PHENYTOIN SODIUM 100 MG ER CAPSULE PO SCH (08:41)
[2018-03-16] MEDS: METOPROLOL TARTRATE 25 MG TABLET PO SCH ×2 (08:42→16:22)
[2018-03-16] MEDS: ASPIRIN 81 MG CHEWABLE TABLET PO SCH (08:44)
[2018-03-16] MEDS: LORazepam 2 MG TABLET PO PRN (14:51)
[2018-03-16 16:10] VITALS: BP 116/71
[2018-03-16] MEDS: HALOPERIDOL 5 MG TABLET PO PRN (16:22)
[2018-03-16] MEDS: IBUPROFEN 400 MG TABLET PO PRN (16:23)
[2018-03-16] MEDS: SIMVASTATIN 10 MG TABLET PO SCH (21:27)
[2018-03-16] MEDS: ROSUVASTATIN CALCIUM 20 MG TABLET PO SCH (21:27)
[2018-03-17 01:38] VITALS: BP 101/59
[2018-03-17] MEDS: ZOLPIDEM TARTRATE 10 MG TABLET PO PRN (01:40)
[2018-03-17] MEDS: IBUPROFEN 400 MG TABLET PO PRN ×2 (01:40→09:34)
[2018-03-17] MEDS: GlipiZIDE 10 MG TABLET PO SCH (07:15)
[2018-03-17 07:19] LABS: GLUCOMETER DEV NAME(LOC) 3EX 1; GLUCOSE,POINT OF CARE 110 MG/DL (70-110)
[2018-03-17] MEDS: GABAPENTIN 300 MG CAPSULE PO SCH ×4 (08:29→21:30)
[2018-03-17] MEDS: TOPIRAMATE 25 MG TABLET PO SCH ×2 (08:29→16:25)
[2018-03-17] MEDS: PHENYTOIN SODIUM 100 MG ER CAPSULE PO SCH (08:29)
[2018-03-17] MEDS: METOPROLOL TARTRATE 25 MG TABLET PO SCH ×2 (08:30→16:25)
[2018-03-17] MEDS: DULoxetine HCL 30 MG CAPSULE PO SCH ×2 (08:31→16:25)
[2018-03-17] MEDS: ASPIRIN 81 MG CHEWABLE TABLET PO SCH (08:33)
[2018-03-17] MEDS: LORazepam 2 MG TABLET PO PRN (09:34)
[2018-03-17 09:37] VITALS: BP 118/63
[2018-03-17 10:40] VITALS: BP 118/64
[2018-03-17] MEDS: HALOPERIDOL 5 MG TABLET PO PRN (14:21)
[2018-03-17 16:00] VITALS: BP 124/69
[2018-03-17 16:25] VITALS: BP 115/79
[2018-03-17] MEDS: SIMVASTATIN 10 MG TABLET PO SCH (21:31)
[2018-03-17] MEDS: ROSUVASTATIN CALCIUM 20 MG TABLET PO SCH (21:31)
[2018-03-18 00:51] VITALS: BP 119/70
[2018-03-18] MEDS: IBUPROFEN 400 MG TABLET PO PRN ×2 (00:55→09:36)
[2018-03-18] MEDS: ZOLPIDEM TARTRATE 10 MG TABLET PO PRN ×2 (00:56→20:09)
[2018-03-18 06:29] LABS: GLUCOMETER DEV NAME(LOC) 3EI C; GLUCOSE,POINT OF CARE 67 MG/DL (70-110)
[2018-03-18 06:29] LABS: GLUCOMETER DEV NAME(LOC) 3EI C; GLUCOSE,POINT OF CARE 137 MG/DL (70-110)
[2018-03-18] MEDS: GlipiZIDE 10 MG TABLET PO SCH (06:58)
[2018-03-18 08:10] VITALS: BP 116/63
[2018-03-18] MEDS: METOPROLOL TARTRATE 25 MG TABLET PO SCH ×2 (08:22→17:53)
[2018-03-18] MEDS: TOPIRAMATE 25 MG TABLET PO SCH ×2 (08:23→17:53)
[2018-03-18] MEDS: GABAPENTIN 300 MG CAPSULE PO SCH ×4 (08:23→20:10)
[2018-03-18] MEDS: PHENYTOIN SODIUM 100 MG ER CAPSULE PO SCH (08:24)
[2018-03-18] MEDS: DULoxetine HCL 30 MG CAPSULE PO SCH ×2 (08:24→17:52)
[2018-03-18] MEDS: ASPIRIN 81 MG CHEWABLE TABLET PO SCH (08:24)
[2018-03-18 09:34] VITALS: BP 116/63
[2018-03-18 10:36] VITALS: BP 124/70
[2018-03-18] MEDS: LORazepam 2 MG TABLET PO PRN (12:53)
[2018-03-18 16:54] LABS: GLUCOMETER DEV NAME(LOC) 3EX 1; GLUCOSE,POINT OF CARE 101 MG/DL (70-110)
[2018-03-18] MEDS: GlipiZIDE 5 MG TABLET PO SCH (17:53)
[2018-03-18] MEDS: SIMVASTATIN 10 MG TABLET PO SCH (20:10)
[2018-03-18] MEDS: ROSUVASTATIN CALCIUM 20 MG TABLET PO SCH (20:10)
[2018-03-18 22:49] VITALS: BP 125/74
[2018-03-19 01:03] LABS: GLUCOMETER DEV NAME(LOC) 3EX 1; GLUCOSE,POINT OF CARE 65 MG/DL (70-110)
[2018-03-19 01:22] VITALS: BP 106/52
[2018-03-19 01:48] LABS: GLUCOMETER DEV NAME(LOC) 3EX 1; GLUCOSE,POINT OF CARE 138 MG/DL (70-110)
[2018-03-19 04:45] VITALS: BP 119/70
[2018-03-19] MEDS: IBUPROFEN 400 MG TABLET PO PRN (04:48)
[2018-03-19] MEDS: LORazepam 2 MG TABLET PO PRN ×2 (04:48→17:08)
[2018-03-19 05:29] LABS: GLUCOMETER DEV NAME(LOC) 3EI C; GLUCOSE,POINT OF CARE 103 MG/DL (70-110)
[2018-03-19] MEDS: MAG HYDROX/AL HYDROX/SIMETH ES 30 ML SUSPENSION UDCUP PO PRN (05:40)
[2018-03-19] MEDS: GlipiZIDE 5 MG TABLET PO SCH ×2 (06:50→16:19)
[2018-03-19] MEDS: METOPROLOL TARTRATE 25 MG TABLET PO SCH ×2 (08:54→16:17)
[2018-03-19] MEDS: GABAPENTIN 300 MG CAPSULE PO SCH ×4 (08:54→19:54)
[2018-03-19] MEDS: PHENYTOIN SODIUM 100 MG ER CAPSULE PO SCH (08:54)
[2018-03-19] MEDS: DULoxetine HCL 30 MG CAPSULE PO SCH ×2 (08:55→16:22)
[2018-03-19] MEDS: TOPIRAMATE 25 MG TABLET PO SCH ×2 (08:55→16:17)
[2018-03-19] MEDS: ASPIRIN 81 MG CHEWABLE TABLET PO SCH (08:58)
[2018-03-19 10:01] VITALS: BP 126/68
[2018-03-19 16:03] VITALS: BP 118/78
[2018-03-19 16:49] LABS: GLUCOMETER DEV NAME(LOC) 3EX 1; GLUCOSE,POINT OF CARE 64 MG/DL (70-110)
[2018-03-19] MEDS: ROSUVASTATIN CALCIUM 20 MG TABLET PO SCH (19:53)
[2018-03-19] MEDS: SIMVASTATIN 10 MG TABLET PO SCH (19:53)
[2018-03-19] MEDS: ZOLPIDEM TARTRATE 10 MG TABLET PO PRN (19:55)
[2018-03-19] MEDS: HALOPERIDOL 5 MG TABLET PO PRN (21:33)
[2018-03-20 00:38] VITALS: BP 117/65
[2018-03-20] MEDS: LORazepam 2 MG TABLET PO PRN (00:38)
[2018-03-20] MEDS: IBUPROFEN 400 MG TABLET PO PRN (01:02)
[2018-03-20 06:19] LABS: GLUCOMETER DEV NAME(LOC) 3EI C; GLUCOSE,POINT OF CARE 77 MG/DL (70-110)
[2018-03-20] MEDS: GlipiZIDE 5 MG TABLET PO SCH (07:19)
[2018-03-20] MEDS: GABAPENTIN 300 MG CAPSULE PO SCH ×4 (07:47→22:20)
[2018-03-20] MEDS: ASPIRIN 81 MG CHEWABLE TABLET PO SCH (07:48)
[2018-03-20] MEDS: DULoxetine HCL 30 MG CAPSULE PO SCH ×2 (07:48→15:59)
[2018-03-20] MEDS: PHENYTOIN SODIUM 100 MG ER CAPSULE PO SCH (07:48)
[2018-03-20] MEDS: TOPIRAMATE 25 MG TABLET PO SCH ×2 (07:48→15:59)
[2018-03-20] MEDS: METOPROLOL TARTRATE 25 MG TABLET PO SCH ×2 (07:49→16:02)
[2018-03-20 08:00] VITALS: BP 130/70
[2018-03-20] MEDS: HALOPERIDOL 5 MG TABLET PO PRN (15:58)
[2018-03-20 16:34] LABS: GLUCOMETER DEV NAME(LOC) 3EX 1; GLUCOSE,POINT OF CARE 90 MG/DL (70-110)
[2018-03-20 17:01] VITALS: BP 108/66
[2018-03-20] MEDS: ROSUVASTATIN CALCIUM 20 MG TABLET PO SCH (22:20)
[2018-03-20] MEDS: SIMVASTATIN 10 MG TABLET PO SCH (22:20)
[2018-03-21] VITALS: BP 114/69
[2018-03-21] MEDS: LORazepam 2 MG TABLET PO PRN ×2 (00:04→09:49)
[2018-03-21] MEDS: IBUPROFEN 400 MG TABLET PO PRN ×2 (00:04→09:49)
[2018-03-21 06:08] LABS: GLUCOMETER DEV NAME(LOC) 3EI C; GLUCOSE,POINT OF CARE 309 MG/DL (70-110)
[2018-03-21 06:38] LABS: GLUCOMETER DEV NAME(LOC) 3EI C; GLUCOSE,POINT OF CARE 102 MG/DL (70-110)
[2018-03-21] MEDS: PHENYTOIN SODIUM 100 MG ER CAPSULE PO SCH (08:27)
[2018-03-21] MEDS: TOPIRAMATE 25 MG TABLET PO SCH (08:27)
[2018-03-21] MEDS: GABAPENTIN 300 MG CAPSULE PO SCH ×2 (08:27→12:11)
[2018-03-21] MEDS: DULoxetine HCL 30 MG CAPSULE PO SCH (08:28)
[2018-03-21] MEDS: ASPIRIN 81 MG CHEWABLE TABLET PO SCH (08:28)
[2018-03-21 09:49] VITALS: BP 107/63
[2018-03-21] MEDS: METOPROLOL TARTRATE 25 MG TABLET PO SCH (09:49)
[2018-03-21] MEDS ORDERED: SIMV-259 PO (12:39)
[2018-03-21] MEDS ORDERED: GLIP5 PO (15:15)
== END 2018-03-21 15:30 | disposition home or self-care (01) | DRG 885 ==
LOC: EMS 19:04 → 3EX 20:00
PROVIDERS: ADMIT Psychiatry & Neurology Child & Adolescent Psychiatry; ATTEND Psychiatry & Neurology Child & Adolescent Psychiatry
PROC: 3E0234Z Introduction of Serum, Toxoid and Vaccine into Muscle, Percutaneous Approach (ICD-10-PCS; principal; 2018-03-09)
DX: F33.2 Major depressive disorder, recurrent severe without psychotic features (principal); R45.851 Suicidal ideations; Z23 Encounter for immunization; Z88.1 Allergy status to other antibiotic agents; Z88.8 Allergy status to other drugs, medicaments and biological substances; I25.10 Atherosclerotic heart disease of native coronary artery without angina pectoris; J44.9 Chronic obstructive pulmonary disease, unspecified; I25.2 Old myocardial infarction; F17.210 Nicotine dependence, cigarettes, uncomplicated; G89.29 Other chronic pain; E11.9 Type 2 diabetes mellitus without complications; E78.5 Hyperlipidemia, unspecified; Z95.5 Presence of coronary angioplasty implant and graft; M19.90 Unspecified osteoarthritis, unspecified site; F19.10 Other psychoactive substance abuse, uncomplicated; I10 Essential (primary) hypertension; F14.90 Cocaine use, unspecified, uncomplicated; Z71.51 Drug abuse counseling and surveillance of drug abuser; F20.9 Schizophrenia, unspecified; F41.0 Panic disorder [episodic paroxysmal anxiety]; Z59.0 Homelessness; Z79.84 Long term (current) use of oral hypoglycemic drugs; Z81.8 Family history of other mental and behavioral disorders; Z86.73 Personal history of transient ischemic attack (TIA), and cerebral infarction without residual deficits
CPT/HCPCS: 51701; 83036; 84443; 87081; 90686; 90732; 99406; G0378; G0480; J3535

== ENCOUNTER 2018-03-22 16:44 | Emergency (ER) | payer MEDICARE, OTHER ==
[~2018-03-22] VITALS: Ht 167.6 cm; Wt 77.3 kg
[~2018-03-22 16:44] MED LIST changes: -GLIP10 PO; +GLIP5 PO; -IBUP-2071 PO; +SIMV-259 PO
[2018-03-22 18:03] LABS: GLUCOSE,POINT OF CARE 80 MG/DL (70-110)
[2018-03-22 18:14] LABS: AMPHET/METH SCREEN,URINE NEGATIVE (NEGATIVE); BARBITURATE SCREEN, URINE NEGATIVE (NEGATIVE); BENZODIAZEPINES SCREEN,URINE NEGATIVE (NEGATIVE); CANNABINOID SCREEN,URINE NEGATIVE (NEGATIVE); COCAINE SCREEN,URINE NEGATIVE (NEGATIVE); METHADONE SCREEN, URINE NEGATIVE (NEGATIVE); OPIATE SCREEN,URINE NEGATIVE (NEGATIVE); PHENCYCLIDINE SCREEN,URINE NEGATIVE (NEGATIVE)
[2018-03-22] MEDS ORDERED: ACETAMINOPHEN 500 MG TABLET PO ONE (18:15)
[2018-03-22 18:21] LABS: BASOPHILS % (AUTO) 1.2 % (0.0-2.0); EOSINOPHILS % (AUTO) 1.6 % (1.0-6.0); HEMATOCRIT 37.6 % (36-46); HEMOGLOBIN 12.4 g/dL (12.0-16.0); LYMPHOCYTES # (AUTO) 2.9 K/uL (1.0-4.8); LYMPHOCYTES % (AUTO) 50.6 % (22.0-44.0); MEAN CORPUSCULAR HEMOGLOBIN 27.5 pg (26.0-34.0); MEAN CORPUSCULAR VOLUME 83 fL (80-100); MONOCYTES # (AUTO) 0.4 K/uL (0.1-1.0); MONOCYTES % (AUTO) 7.6 % (2.0-9.0); NEUTROPHILS # (AUTO) 2.2 K/uL (1.8-7.7); RED CELL DISTRIBUTION WIDTH 16.8 % (11.5-14.5)
[2018-03-22 18:25] LABS: ANION GAP 9 mmol/L (8-16); CALCIUM, TOTAL 8.7 mg/dL (8.8-10.5); CARBON DIOXIDE 28 mmol/L (22-29); CHLORIDE 105 mmol/L (98-107); CREATININE 0.62 mg/dL (0.60-1.30); GLOMERULAR FILTR. RATE CALC > 60 mL/min (>60); GLUCOSE,RANDOM 78 mg/dL (70-110); SODIUM SERUM 142 mmol/L (136-145); UREA NITROGEN, BLOOD 17 mg/dL (7-18)
[2018-03-22 18:31] LABS: ALANINE AMINOTRANSFERASE 20 U/L (12-78); ALBUMIN 3.8 g/dL (3.4-5.0); ALKALINE PHOSPHATASE 85 U/L (46-116); ASPARTATE AMINOTRANSFERASE 20 U/L (15-37); BILIRUBIN,TOTAL 0.1 mg/dL (0.1-1.0); PHENYTOIN (DILANTIN) 10.6 mcg/mL (10.0-20.0); TOTAL PROTEIN, SERUM 7.7 g/dL (6.4-8.2)
[2018-03-22 18:59] LABS: PLATELET COUNT (AUTO) 210 K/uL (150-450)
[2018-03-22 19:20] VITALS: BP 128/74
== END 2018-03-22 19:52 | disposition home or self-care (01) ==
LOC: EMS 16:46
DX: F20.9 Schizophrenia, unspecified (principal); R51 Headache; F17.210 Nicotine dependence, cigarettes, uncomplicated; I11.9 Hypertensive heart disease without heart failure; J44.9 Chronic obstructive pulmonary disease, unspecified; I25.10 Atherosclerotic heart disease of native coronary artery without angina pectoris; I25.2 Old myocardial infarction; Z88.1 Allergy status to other antibiotic agents; Z88.0 Allergy status to penicillin; Z88.8 Allergy status to other drugs, medicaments and biological substances; Z91.018 Allergy to other foods; Z79.84 Long term (current) use of oral hypoglycemic drugs; Z79.82 Long term (current) use of aspirin; Z79.899 Other long term (current) drug therapy; W19.XXXA Unspecified fall, initial encounter; Y93.89 Activity, other specified; Y92.89 Other specified places as the place of occurrence of the external cause; Y99.8 Other external cause status
CPT/HCPCS: 36415; 80053; 80185; 80307; 82962; 85025; 99284; 99406; G0480

== ENCOUNTER 2018-03-23 01:10 | Emergency (ER) | payer MEDICARE, OTHER ==
[~2018-03-23] VITALS: Ht 165.1 cm; Wt 77.2 kg
[2018-03-23] MEDS ORDERED: KETOROLAC TROMETHAMINE 30 MG/ML VIAL IM ONE (06:30)
[2018-03-23] MEDS ORDERED: ACETAMINOPHEN 325 MG TABLET PO ONE (07:30)
[2018-03-23 09:32] VITALS: BP 148/81
== END 2018-03-23 10:16 | disposition home or self-care (01) ==
LOC: EMS 01:10
DX: F20.9 Schizophrenia, unspecified (principal); M16.0 Bilateral primary osteoarthritis of hip; F31.9 Bipolar disorder, unspecified; F17.210 Nicotine dependence, cigarettes, uncomplicated; I11.9 Hypertensive heart disease without heart failure; I25.2 Old myocardial infarction; J44.9 Chronic obstructive pulmonary disease, unspecified; I25.10 Atherosclerotic heart disease of native coronary artery without angina pectoris; Z88.1 Allergy status to other antibiotic agents; Z88.8 Allergy status to other drugs, medicaments and biological substances; Z79.899 Other long term (current) drug therapy; W19.XXXA Unspecified fall, initial encounter; Y93.89 Activity, other specified; Y92.89 Other specified places as the place of occurrence of the external cause; Y99.8 Other external cause status
CPT/HCPCS: 73502; 96372; 99284; J1885

== ENCOUNTER 2018-06-02 06:38 | Emergency (ER) | payer MEDICARE, OTHER ==
[~2018-06-02] VITALS: Ht 167.6 cm; Wt 85.0 kg
[2018-06-02] MEDS ORDERED: DULO20CA17 PO (06:44)
[2018-06-02 06:54] LABS: GLUCOSE,POINT OF CARE 117 MG/DL (70-110)
[2018-06-02] MEDS ORDERED: GABAPENTIN 300 MG CAPSULE PO ONE (07:00)
[2018-06-02] MEDS ORDERED: IBUPROFEN 600 MG TABLET PO ONE (07:00)
[2018-06-02 07:23] LABS: BASOPHILS % (AUTO) 0.5 % (0.0-2.0); EOSINOPHILS % (AUTO) 0.4 % (1.0-6.0); HEMATOCRIT 42.4 % (36-46); LYMPHOCYTES # (AUTO) 1.3 K/uL (1.0-4.8); LYMPHOCYTES % (AUTO) 25.3 % (22.0-44.0); MEAN CORPUSCULAR HEMOGLOBIN 28.5 pg (26.0-34.0); MEAN CORPUSCULAR HGB CONC 33.1 G/dL (31.0-37.0); MEAN CORPUSCULAR VOLUME 86 fL (80-100); MONOCYTES # (AUTO) 0.4 K/uL (0.1-1.0); MONOCYTES % (AUTO) 6.9 % (2.0-9.0); NEUTROPHILS # (AUTO) 3.6 K/uL (1.8-7.7); NEUTROPHILS % (AUTO) 66.9 % (40.0-70.0); PLATELET COUNT (AUTO) 196 K/uL (150-450); RED BLOOD CELL COUNT(AUTO) 4.93 MIL/uL (4.00-5.20); RED CELL DISTRIBUTION WIDTH 18.3 % (11.5-14.5)
[2018-06-02 07:41] LABS: ANION GAP 14 mmol/L (8-16); CALCIUM, TOTAL 8.9 mg/dL (8.8-10.5); CARBON DIOXIDE 21 mmol/L (22-29); CHLORIDE 104 mmol/L (98-107); CREATININE 0.59 mg/dL (0.60-1.30); GLOMERULAR FILTR. RATE CALC > 60 mL/min (>60); GLUCOSE,RANDOM 112 mg/dL (70-110); POTASSIUM 3.7 mmol/L (3.5-5.1); SODIUM SERUM 139 mmol/L (136-145); UREA NITROGEN, BLOOD 12 mg/dL (7-18)
[2018-06-02 07:46] LABS: ALANINE AMINOTRANSFERASE 31 U/L (12-78); ALBUMIN 3.8 g/dL (3.4-5.0); ALKALINE PHOSPHATASE 82 U/L (46-116); ASPARTATE AMINOTRANSFERASE 26 U/L (15-37); BILIRUBIN,TOTAL 0.2 mg/dL (0.1-1.0); TOTAL PROTEIN, SERUM 7.8 g/dL (6.4-8.2)
[2018-06-02 08:07] LABS: APPEARANCE,URINE CLOUDY (CLEAR); BILIRUBIN,URINE NEGATIVE (NEGATIVE); GLUCOSE, URINE (UA) NEGATIVE (NEGATIVE); KETONES,URINE NEGATIVE (NEGATIVE); LEUKOCYTE ESTERASE ,URINE NEGATIVE (NEGATIVE); NITRATE,URINE POSITIVE (NEGATIVE); OCCULT BLOOD,URINE NEGATIVE (NEGATIVE); PROTEIN,URINE NEGATIVE (NEGATIVE); UROBILINOGEN,URINE 0.2 mg/dL (<=1.0)
[2018-06-02 08:12] LABS: BACTERIA,URINE Many /HPF (None Seen); RBC,URINE None Seen /HPF (0-2); SQUAMOUS EPITHELIAL CELL,UR Rare /LPF (None Seen)
[2018-06-02] MEDS ORDERED: CIPROFLOXACIN HCL 250 MG TABLET PO ONE (08:45)
[2018-06-02 08:54] VITALS: BP 156/94
== END 2018-06-02 10:21 | disposition home or self-care (01) ==
LOC: EMS 06:39
DX: N39.0 Urinary tract infection, site not specified (principal); R07.9 Chest pain, unspecified; K62.89 Other specified diseases of anus and rectum; M25.569 Pain in unspecified knee; M79.10 Myalgia, unspecified site; G81.94 Hemiplegia, unspecified affecting left nondominant side; I25.10 Atherosclerotic heart disease of native coronary artery without angina pectoris; J44.9 Chronic obstructive pulmonary disease, unspecified; F31.9 Bipolar disorder, unspecified; E11.9 Type 2 diabetes mellitus without complications; I10 Essential (primary) hypertension; I25.2 Old myocardial infarction; F20.9 Schizophrenia, unspecified; G89.29 Other chronic pain; F17.210 Nicotine dependence, cigarettes, uncomplicated; Z79.82 Long term (current) use of aspirin; Z88.1 Allergy status to other antibiotic agents; Z91.011 Allergy to milk products; Z88.8 Allergy status to other drugs, medicaments and biological substances; Z91.018 Allergy to other foods; Z86.73 Personal history of transient ischemic attack (TIA), and cerebral infarction without residual deficits
CPT/HCPCS: 87086; 93005

== ENCOUNTER 2018-07-29 16:57 | Emergency (ER) | payer MEDICARE, OTHER ==
[~2018-07-29] VITALS: Ht 162.6 cm; Wt 72.7 kg
[~2018-07-29 16:57] MED LIST changes: +DULO20CA17 PO; -DULO30CA2 PO; -ROSU20 PO; +ROSU20TA23 PO; -SIMV-259 PO
[2018-07-29 17:59] LABS: GLUCOSE,POINT OF CARE 162 MG/DL (70-110)
[2018-07-29] MEDS ORDERED: TRAM50TA4 PO (17:59)
[2018-07-29] MEDS ORDERED: QUET25TA PO (17:59)
[2018-07-29] MEDS ORDERED: CLOP75TA3 PO (17:59)
[2018-07-29 21:56] VITALS: BP 149/79
== END 2018-07-29 23:00 | disposition home or self-care (01) ==
LOC: EMS 17:00
DX: J06.9 Acute upper respiratory infection, unspecified (principal); I25.10 Atherosclerotic heart disease of native coronary artery without angina pectoris; J44.9 Chronic obstructive pulmonary disease, unspecified; E11.9 Type 2 diabetes mellitus without complications; I10 Essential (primary) hypertension; I25.2 Old myocardial infarction; F20.9 Schizophrenia, unspecified; F31.9 Bipolar disorder, unspecified; F17.210 Nicotine dependence, cigarettes, uncomplicated; Z86.73 Personal history of transient ischemic attack (TIA), and cerebral infarction without residual deficits; Z79.82 Long term (current) use of aspirin; Z88.1 Allergy status to other antibiotic agents; Z91.011 Allergy to milk products; Z88.8 Allergy status to other drugs, medicaments and biological substances; Z91.018 Allergy to other foods

== ENCOUNTER 2018-09-19 18:52 | Emergency (ER) | payer MEDICARE, OTHER ==
[~2018-09-19] VITALS: Ht 167.6 cm; Wt 90.9 kg
[~2018-09-19 18:52] MED LIST changes: +CLOP75TA3 PO; -GLIP5 PO; +QUET25TA PO; -ROSU20TA23 PO; +TRAM50TA4 PO
[2018-09-19] MEDS ORDERED: MOM30 PO (19:19)
[2018-09-19] MEDS ORDERED: ACET-784 PO (19:19)
[2018-09-19] MEDS ORDERED: DOCU250C91 PO (19:19)
[2018-09-19] MEDS ORDERED: LOSA25TA41 PO (19:19)
[2018-09-19] MEDS ORDERED: ENOX40DI9 SQ (19:19)
[2018-09-19] MEDS ORDERED: ATOR40TA28 PO (19:19)
[2018-09-19] MEDS ORDERED: FAMO20 PO (19:19)
[2018-09-19] MEDS ORDERED: ADV250 IH (19:19)
[2018-09-19 19:24] LABS: GLUCOSE,POINT OF CARE 152 MG/DL (70-110)
[2018-09-19 20:05] LABS: BASOPHILS % (AUTO) 0.3 % (0.0-2.0); EOSINOPHILS % (AUTO) 1.5 % (1.0-6.0); HEMATOCRIT 42.4 % (36-46); LYMPHOCYTES % (AUTO) 35.4 % (22.0-44.0); MEAN CORPUSCULAR HEMOGLOBIN 30.1 pg (26.0-34.0); MEAN CORPUSCULAR VOLUME 91 fL (80-100); MONOCYTES # (AUTO) 0.5 K/uL (0.1-1.0); MONOCYTES % (AUTO) 9.5 % (2.0-9.0); NEUTROPHILS # (AUTO) 2.9 K/uL (1.8-7.7); NEUTROPHILS % (AUTO) 53.3 % (40.0-70.0); PLATELET COUNT (AUTO) 209 K/uL (150-450); RED BLOOD CELL COUNT(AUTO) 4.65 MIL/uL (4.00-5.20); RED CELL DISTRIBUTION WIDTH 15.9 % (11.5-14.5)
[2018-09-19 20:18] LABS: PROTHROMBIN TIME 10.2 SEC (9.4-11.6)
[2018-09-19 20:25] LABS: ANION GAP 8 mmol/L (8-16); CARBON DIOXIDE 26 mmol/L (22-29); CHLORIDE 108 mmol/L (98-107); CREATININE 0.62 mg/dL (0.60-1.30); GLOMERULAR FILTR. RATE CALC > 60 mL/min (>60); GLUCOSE,RANDOM 145 mg/dL (70-110); POTASSIUM 3.9 mmol/L (3.5-5.1); SODIUM SERUM 142 mmol/L (136-145); UREA NITROGEN, BLOOD 19 mg/dL (7-18)
[2018-09-19 20:31] LABS: ALANINE AMINOTRANSFERASE 19 U/L (12-78); ALBUMIN 3.3 g/dL (3.4-5.0); ALKALINE PHOSPHATASE 104 U/L (46-116); ASPARTATE AMINOTRANSFERASE 14 U/L (15-37); BILIRUBIN,TOTAL 0.1 mg/dL (0.1-1.0); LIPASE 157 U/L (73-393); TOTAL PROTEIN, SERUM 7.4 g/dL (6.4-8.2)
[2018-09-19 21:19] LABS: APPEARANCE,URINE CLOUDY (CLEAR); BILIRUBIN,URINE NEGATIVE (NEGATIVE); GLUCOSE, URINE (UA) NEGATIVE (NEGATIVE); KETONES,URINE NEGATIVE (NEGATIVE); LEUKOCYTE ESTERASE ,URINE TRACE (NEGATIVE); NITRATE,URINE NEGATIVE (NEGATIVE); OCCULT BLOOD,URINE LARGE (NEGATIVE); PROTEIN,URINE NEGATIVE (NEGATIVE); UROBILINOGEN,URINE 0.2 mg/dL (<=1.0)
[2018-09-19 21:40] LABS: AMORPHOUS SEDIMENT,UR Few /LPF (None Seen); BACTERIA,URINE Few /HPF (None Seen); SQUAMOUS EPITHELIAL CELL,UR Few /LPF (None Seen)
[2018-09-19] MEDS ORDERED: IOVERSOL 320 MG/ML 100 ML VIAL ONE (21:55)
[2018-09-19] MEDS ORDERED: SODIUM CHLORIDE 0.9% 0 ML ONE (21:55)
[2018-09-19 23:55] VITALS: BP 122/72
== END 2018-09-20 00:03 | disposition home or self-care (01) ==
LOC: EMS 18:53
DX: K64.4 Residual hemorrhoidal skin tags (principal); K62.5 Hemorrhage of anus and rectum; I10 Essential (primary) hypertension; E11.9 Type 2 diabetes mellitus without complications; I25.2 Old myocardial infarction; I25.10 Atherosclerotic heart disease of native coronary artery without angina pectoris; J44.9 Chronic obstructive pulmonary disease, unspecified; F32.9 Major depressive disorder, single episode, unspecified; F20.9 Schizophrenia, unspecified; F17.210 Nicotine dependence, cigarettes, uncomplicated; Z88.1 Allergy status to other antibiotic agents; Z88.8 Allergy status to other drugs, medicaments and biological substances; Z79.899 Other long term (current) drug therapy
CPT/HCPCS: 51701; 82271; J7050

== ENCOUNTER 2018-11-11 17:11 | Emergency (ER) | payer MEDICARE, OTHER ==
[~2018-11-11] VITALS: Ht 167.6 cm; Wt 100.0 kg
[~2018-11-11 17:11] MED LIST changes: +ACET-784 PO; +ADV250 IH; -ASPI-556 PO; +ATOR40TA28 PO; +DOCU250C91 PO; -DULO20CA17 PO; +DULO20CA18 PO; +ENOX40DI9 SQ; +FAMO20 PO; +LOSA25TA41 PO; +MOM30 PO; -TRAM50TA4 PO
[2018-11-11 18:14] LABS: GLUCOSE,POINT OF CARE 150 MG/DL (70-110)
[2018-11-11] MEDS ORDERED: METO25 PO (18:17)
[2018-11-11] MEDS ORDERED: ALBU8.5H8 IH (18:17)
[2018-11-11] MEDS ORDERED: LORA0.5T2 PO (18:17)
[2018-11-11] MEDS ORDERED: DULO30CA2 PO (18:17)
[2018-11-11] MEDS ORDERED: NITR0.4T52 SL (18:17)
[2018-11-11] MEDS ORDERED: CITA10TA68 PO (18:17)
[2018-11-11 18:22] LABS: BASOPHILS % (AUTO) 0.7 % (0.0-2.0); EOSINOPHILS % (AUTO) 1.6 % (1.0-6.0); HEMATOCRIT 31.6 % (36-46); HEMOGLOBIN 10.4 g/dL (12.0-16.0); LYMPHOCYTES # (AUTO) 2.2 K/uL (1.0-4.8); LYMPHOCYTES % (AUTO) 35.7 % (22.0-44.0); MEAN CORPUSCULAR HEMOGLOBIN 28.7 pg (26.0-34.0); MEAN CORPUSCULAR HGB CONC 32.9 G/dL (31.0-37.0); MEAN CORPUSCULAR VOLUME 87 fL (80-100); MONOCYTES # (AUTO) 0.5 K/uL (0.1-1.0); MONOCYTES % (AUTO) 8.2 % (2.0-9.0); NEUTROPHILS # (AUTO) 3.3 K/uL (1.8-7.7); NEUTROPHILS % (AUTO) 53.8 % (40.0-70.0); PLATELET COUNT (AUTO) 331 K/uL (150-450); RED BLOOD CELL COUNT(AUTO) 3.61 MIL/uL (4.00-5.20); RED CELL DISTRIBUTION WIDTH 16.5 % (11.5-14.5)
[2018-11-11 18:37] LABS: ANION GAP 14 mmol/L (8-16); CALCIUM, TOTAL 9.2 mg/dL (8.8-10.5); CARBON DIOXIDE 22 mmol/L (22-29); CHLORIDE 105 mmol/L (98-107); CREATININE 0.71 mg/dL (0.60-1.30); GLOMERULAR FILTR. RATE CALC > 60 mL/min (>60); GLUCOSE,RANDOM 136 mg/dL (70-110); POTASSIUM 3.2 mmol/L (3.5-5.1); SODIUM SERUM 141 mmol/L (136-145); UREA NITROGEN, BLOOD 21 mg/dL (7-18)
[2018-11-11 18:48] LABS: ALANINE AMINOTRANSFERASE 18 U/L (12-78); ALBUMIN 3.7 g/dL (3.4-5.0); ALKALINE PHOSPHATASE 98 U/L (46-116); ASPARTATE AMINOTRANSFERASE 24 U/L (15-37); BILIRUBIN,TOTAL 0.2 mg/dL (0.1-1.0); LIPASE 119 U/L (73-393); PHENYTOIN (DILANTIN) 4.9 mcg/mL (10.0-20.0); TOTAL PROTEIN, SERUM 8.1 g/dL (6.4-8.2)
[2018-11-11] MEDS ORDERED: POTASSIUM CHLORIDE 20 MEQ ER TABLET PO ONE ×2 (20:30)
[2018-11-11] MEDS ORDERED: ACETAMINOPHEN 325 MG TABLET PO ONE (21:15)
[2018-11-11 22:23] VITALS: BP 136/80
== END 2018-11-11 22:25 | disposition home or self-care (01) ==
LOC: EMS 17:14
DX: R10.30 Lower abdominal pain, unspecified (principal); E11.9 Type 2 diabetes mellitus without complications; G89.29 Other chronic pain; J44.9 Chronic obstructive pulmonary disease, unspecified; I10 Essential (primary) hypertension; I25.10 Atherosclerotic heart disease of native coronary artery without angina pectoris; I25.2 Old myocardial infarction; F20.9 Schizophrenia, unspecified; F17.210 Nicotine dependence, cigarettes, uncomplicated; F31.9 Bipolar disorder, unspecified; Z79.899 Other long term (current) drug therapy; Z86.73 Personal history of transient ischemic attack (TIA), and cerebral infarction without residual deficits; Z88.1 Allergy status to other antibiotic agents; Z91.011 Allergy to milk products; Z91.018 Allergy to other foods

== ENCOUNTER 2018-11-14 17:36 | Emergency (ER) | payer MEDICARE, OTHER ==
[~2018-11-14] VITALS: Ht 167.6 cm; Wt 97.7 kg
[~2018-11-14 17:36] MED LIST changes: +ALBU8.5H8 IH; +CITA10TA68 PO; -DOCU250C91 PO; -DULO20CA18 PO; +DULO30CA2 PO; -ENOX40DI9 SQ; +LORA0.5T2 PO; -MOM30 PO; +NITR0.4T52 SL; -QUET25TA PO
[2018-11-14 18:47] LABS: BASOPHILS % (AUTO) 0.9 % (0.0-2.0); EOSINOPHILS % (AUTO) 1.5 % (1.0-6.0); HEMATOCRIT 33.1 % (36-46); HEMOGLOBIN 10.4 g/dL (12.0-16.0); LYMPHOCYTES # (AUTO) 2.1 K/uL (1.0-4.8); LYMPHOCYTES % (AUTO) 40.8 % (22.0-44.0); MEAN CORPUSCULAR HEMOGLOBIN 27.2 pg (26.0-34.0); MEAN CORPUSCULAR HGB CONC 31.5 G/dL (31.0-37.0); MEAN CORPUSCULAR VOLUME 86 fL (80-100); MONOCYTES # (AUTO) 0.4 K/uL (0.1-1.0); MONOCYTES % (AUTO) 8.7 % (2.0-9.0); NEUTROPHILS # (AUTO) 2.4 K/uL (1.8-7.7); NEUTROPHILS % (AUTO) 48.1 % (40.0-70.0); PLATELET COUNT (AUTO) 320 K/uL (150-450); RED BLOOD CELL COUNT(AUTO) 3.84 MIL/uL (4.00-5.20); RED CELL DISTRIBUTION WIDTH 16.6 % (11.5-14.5)
[2018-11-14 18:58] LABS: ANION GAP 13 mmol/L (8-16); CALCIUM, TOTAL 9.6 mg/dL (8.8-10.5); CARBON DIOXIDE 21 mmol/L (22-29); CHLORIDE 108 mmol/L (98-107); CREATININE 0.63 mg/dL (0.60-1.30); GLOMERULAR FILTR. RATE CALC > 60 mL/min (>60); GLUCOSE,RANDOM 117 mg/dL (70-110); POTASSIUM 3.3 mmol/L (3.5-5.1); SODIUM SERUM 142 mmol/L (136-145); UREA NITROGEN, BLOOD 16 mg/dL (7-18)
[2018-11-14 19:06] LABS: PROTHROMBIN TIME 10.2 SEC (9.4-11.6)
[2018-11-14 19:18] LABS: B-TYPE NATRIURETIC PEPTIDE 25 pg/mL (0-100)
[2018-11-14 19:22] LABS: ALANINE AMINOTRANSFERASE 20 U/L (12-78); ALBUMIN 3.8 g/dL (3.4-5.0); ALKALINE PHOSPHATASE 86 U/L (46-116); ASPARTATE AMINOTRANSFERASE 24 U/L (15-37); BILIRUBIN,TOTAL 0.2 mg/dL (0.1-1.0); CREATINE KINASE, TOTAL ONLY 106 U/L (26-192); TOTAL PROTEIN, SERUM 7.8 g/dL (6.4-8.2)
[2018-11-14 19:23] LABS: PHENYTOIN (DILANTIN) 2.9 mcg/mL (10.0-20.0)
[2018-11-14] MEDS ORDERED: ACETAMINOPHEN 1000 MG/ISO-OSM 100 ML IV ONE (21:30)
[2018-11-14 23:30] VITALS: BP 139/66
== END 2018-11-15 05:15 | disposition home or self-care (01) ==
LOC: EMS 17:40
DX: K64.9 Unspecified hemorrhoids (principal); R07.89 Other chest pain; I11.9 Hypertensive heart disease without heart failure; I25.10 Atherosclerotic heart disease of native coronary artery without angina pectoris; I25.2 Old myocardial infarction; F32.9 Major depressive disorder, single episode, unspecified; Z86.73 Personal history of transient ischemic attack (TIA), and cerebral infarction without residual deficits; Z88.0 Allergy status to penicillin; Z91.018 Allergy to other foods; Z79.01 Long term (current) use of anticoagulants; Z79.899 Other long term (current) drug therapy
CPT/HCPCS: 36415; 71045; 80053; 80185; 82550; 83690; 83880; 84484; 85025; 85610; 85730; 93005; 96365; 99285; G0480; J0131